=== PATIENT | male | born 1950 | race Caucasian/White ===

== ENCOUNTER → 2018-11-25 | Outpatient (CLI) | payer MEDICARE, OTHER ==
--- NOTE | 2018-11-25 11:10 | Diagnostic Imaging Report ---
INDICATION: Persistent cough. COMPARISON: None available. TECHNIQUE: Frontal and lateral radiographs of the chest dated November 25, 2018. FINDINGS: The cardiac silhouette is at the upper limits of normal in size. No significant pulmonary vascular congestion. The left lung is clear. Small right basilar pleural effusion. 1 cm ovoid nodular density is identified overlying the right lung apex. Otherwise, the right lung is clear. No pneumothorax. Scattered osseous degenerative changes without acute osseous abnormality. IMPRESSION: Small right basilar pleural effusion. 1 cm ovoid nodular density overlying the right lung apex. Although this may simply relate to superposition of shadows, pulmonary nodule is not excluded. Comparison to prior imaging is recommended. If no prior imaging is available to demonstrate greater than two years of stability for this nodular density, then a nonemergent CT of the chest would be recommended. Cardiac silhouette is at the upper limits of normal in size without significant pulmonary vascular congestion. Dictated by: Dictated on workstation # [id number]
== END ==
LOC: RAD FS 10:52
PROVIDERS: ATTEND Nurse Practitioner
DX: J90 Pleural effusion, not elsewhere classified (principal); J98.4 Other disorders of lung
CPT/HCPCS: 71046

== ENCOUNTER → 2019-01-26 | Outpatient (CLI) | payer MEDICARE, OTHER ==
--- NOTE | 2019-01-26 10:28 | Diagnostic Imaging Report ---
EXAM: PA and lateral chest at 10:16 a.m. INDICATION: Respiratory distress, shortness of breath. The appearance of the chest has worsened since the prior study of 11/25/2018 as the right lung base is now opacified by atelectasis/infiltrate and fluid. The nodular density overlying the right upper lobe seen previously is again evident and no different. The left lung is relatively clear. The heart is mildly enlarged but stable. The mediastinum is not widened. The osseous structures are intact. IMPRESSION: 1. The appearance of the chest has worsened since the prior study as the right lung base is now opacified by atelectasis/infiltrate and fluid. 2. In reviewing the previous exam, there was no evidence for a right hilar mass to suggest neoplastic disease. However, if further evaluation of the right hilum is desired, then CT of the chest would be recommended. The nodular density overlying the right apex seen previously could also be better evaluated by CT. Dictated by: Dictated on workstation # [id number]
== END ==
LOC: RAD FS 10:12
PROVIDERS: ATTEND Family Medicine
DX: R06.03 Acute respiratory distress (principal); R06.02 Shortness of breath
CPT/HCPCS: 71046

== ENCOUNTER → 2019-02-14 | Outpatient (CLI) | payer MEDICARE, OTHER ==
[~2019-02-14] MED LIST: CATHETER FLUSH 10 ML SYR IV PRN; ERGO50006 PO; ESCI20TA45 PO; ESZO3TAB39 PO; HOLD METFORMIN - RECEIVED CONTRAST 20 ML VIAL IV SCH; IOHEXOL 350 MG/ML 100 ML (OMNIPAQUE 350) VIAL IV ONE; LEVO25TA5 PO; MULT-974 PO; NS 100 ML (IVPB) BAG IV ONE; PANT40TA3 PO; TAMS0.4C98 PO
[2019-02-14 09:20] LABS: BUN/CREATININE RATIO 13; CREATININE SERUM 1.11 MG/DL (0.60-1.30); GFR ESTIMATED > 60
--- NOTE | 2019-02-14 15:58 | Diagnostic Imaging Report ---
PROCEDURE: CT chest with contrast only. TECHNIQUE: Multiple contiguous axial images were obtained through the chest after administration of intravenous contrast. Auto Exposure Controls were utilized during the CT exam to meet ALARA standards for radiation dose reduction. INDICATION: Cough since late October/early November. Shortness of breath x 1 month. CORRELATION STUDY: Chest radiographs of 11/25/2018 and 01/26/2019. FINDINGS: There is the presence of a moderately large right pleural effusion occupying the dependent portion of the right hemithorax. There is rather significant consolidation in a large portion of the right lower lobe and portions of the middle lobe. A definitive central obstructive hilar mass is not demonstrated. There are, however, abnormal and concerning enlarged mediastinal lymph nodes. A marker right paratracheal lymph node measures 2.4 x 2.1 cm. An additional right pre-bronchial lymph node measures 2.6 x 2.0 cm and is hypervascular. There is an abnormal lobulated hypervascular mass in the anterior aspect of the right lung base inseparable from the chest wall measuring 5.9 x 4.2 cm, also hypervascular. A hypervascular mass adjacent to the low esophagus to the right of midline measures 3.5 x 2.6 cm. Additional lymph nodes are seen adjacent to the lower esophagus. A left hilar lymph node measures 2.7 x 2.0 cm. Small peripheral hypervascular peripheral nodules are also present. A questionable additional right infrahilar lymph node could result in some of the accounted for atelectatic change in the right lower lobe. There is incidental note made of a left sided superior vena cava emptying into the coronary sinus. There are scattered, innumerable small bilateral pulmonary nodules present. Marker nodules are as follow: Anterior lateral right upper lobe: 11 mm (image 35/series 3). Anterolateral aspect of the left upper lobe: 10 mm (image 55/series 3). Subpleural region in the medial left upper lobe: 8 mm (image 68/series 3). Basilar aspect of the left upper lobe: 10 mm (image 101/series 3). Medial left lower lobe: 14 mm (image 116/series 3). There is partial visualization of a left renal mass which is highly worrisome for primary renal neoplasm. The visualized portions measure 8.4 x 7.4 cm. The left renal vein and inferior vena cava appear unremarkable. There is a small adjacent aortocaval lymph node. There is a destructive hypervascular mass involving the right posterolateral corner and pedicle at T12. The soft tissue component measures 3.8 x 2.9 cm. Diffuse thin bridging osteophytes throughout the thoracic spine are compatible with ankylosing spondylitis. Low-density lesions within the liver favor probable cysts along with gallstones. IMPRESSION: 1. Markedly abnormal CT chest examination. 2. Findings are most consistent with a likely primary left renal cell carcinoma with extensive metastatic disease including hyperenhancing mediastinal and hilar lymph nodes along with a mass at the anterior base of the right hemithorax. There are also findings consistent with multiple bilateral metastatic pulmonary nodules along with destructive osseous metastasis at the right T12 level. 3. A moderately large right pleural effusion results in significant consolidation of the right lower lobe. Some peripheral nodular enhancement raises concern for a malignant pleural effusion. The report was given to Maria D Barrera APRN at 3:58 p.m. 02/14/2019/nan Dictated by: Dictated on workstation # [id number]
== END ==
LOC: RAD FS 08:31
PROVIDERS: ATTEND Nurse Practitioner Family
DX: J90 Pleural effusion, not elsewhere classified (principal); R91.8 Other nonspecific abnormal finding of lung field
CPT/HCPCS: 36415; 71260; 82565; 84520

== ENCOUNTER 2019-02-15 10:11 | Day surgery (SDC) | payer MEDICARE, OTHER ==
[2019-02-15] VITALS (14 sets, daily range): BP systolic 131–192; BP diastolic 60–92
[~2019-02-15] VITALS: Ht 180.3 cm; Wt 107.1 kg
--- NOTE | 2019-02-15 11:15 | Diagnostic Imaging Report ---
INDICATION: Pleural effusion TECHNIQUE: Multiple real time johnson scale sonographic images were obtained of the right chest. CORRELATION STUDY: None FINDINGS: Imaging performed of the right chest which demonstrates a large right pleural effusion to be present. Collapsed, atelectatic lung is present. A suitable window for thoracentesis was marked by the bird raiser at the posterior chest. No radiologist present. IMPRESSION: 1.Right pleural effusion, marked for follow-up thoracentesis. Dictated by: Dictated on workstation # [id number]
[2019-02-15] MEDS ORDERED: NS IV 500 ML 500 ML ONE (11:38)
--- NOTE | 2019-02-15 11:39 | Pulmonary Procedures ---
Pulmonary Procedures Date of Procedure Date of Service: Feb 15, 2019 Procedure: US guided complex thoracentesis Preop DX: Right pleural effusion post op DX: Same 2000cc of yellow fluid obtained) Complications: None After informed consent obtained US was used to localize pleural fluid. Pt has right pleural effusions. Skin was anesthetized at approximately the 10th ICS posterior axillary line. Thoracentesis needle was advanced through the 10th ICS posterior axillary line. Needle was removed and catheter left in place.2000cc of yellow fluid obtained using vacuum bottles. Catheter was then removed. Pt tolerated procedure well. No complications noted. ADAMS HARDIN DO Feb 15, 2019 11:39 POS
[2019-02-15] MEDS ORDERED: NS IV 500 ML 500 ML IV PRN ×2 (11:59→12:13)
[2019-02-15] MEDS ORDERED: MIDAZOLAM 5 MG/5 ML (VERSED) VIAL IV PRN (12:00)
[2019-02-15] MEDS ORDERED: LIDOCAINE JELLY 2% 6 ML SYRINGE MM PRN ×2 (12:00→12:15)
[2019-02-15] MEDS ORDERED: HURRICAINE EXT TUBE (BENZOCAINE) XX PRN ×2 (12:00→12:15)
[2019-02-15 12:10] LABS: BASOPHILS % (AUTO) 0 % (0-10); EOSINOPHILS # (AUTO) 0.1 10^3/uL (0.0-0.3); EOSINOPHILS % (AUTO) 1 % (0-10); HEMATOCRIT 40 % (40-54); HEMOGLOBIN 13.3 G/DL (13.3-17.7); LYMPHOCYTES # (AUTO) 1.3 X 10^3 (1.0-4.0); LYMPHOCYTES % (AUTO) 17 % (12-44); MEAN CORPUSCULAR HEMOGLOBIN 27 PG (25-34); MEAN CORPUSCULAR HGB CONC 34 G/DL (32-36); MEAN CORPUSCULAR VOLUME 80 FL (80-99); MONOCYTES # (AUTO) 0.6 X 10^3 (0.0-1.0); MONOCYTES % (AUTO) 8 % (0-12); NEUTROPHILS # (AUTO) 5.7 X 10^3 (1.8-7.8); NEUTROPHILS % (AUTO) 75 % (42-75); PLATELET COUNT 290 10^3/uL (130-400); RED CELL DISTRIBUTION WIDTH 13.7 % (10.0-14.5); WHITE BLOOD COUNT 7.6 10^3/uL (4.3-11.0)
[2019-02-15] MEDS ORDERED: fentaNYL INJECTION 100 MCG/2 ML AMP IVP ONE (12:15)
--- NOTE | 2019-02-15 12:15 | Diagnostic Imaging Report ---
INDICATION: Status post thoracentesis. Time of exam 11:57 AM Correlation is made with prior chest from 01/26/2019. There has been reduction in right-sided pleural effusion when compared with CT chest from 1 day earlier. No pneumothorax is identified. There is some residual infiltrate/atelectasis in the right base. IMPRESSION: No evidence of pneumothorax, status post thoracentesis. Dictated by: Dictated on workstation # [id number]
[2019-02-15 12:35] LABS: ALANINE AMINOTRANSFERASE 17 U/L (0-55); ALBUMIN 4.1 GM/DL (3.2-4.5); ALKALINE PHOSPHATASE 109 U/L (40-136); BILIRUBIN,TOTAL 0.4 MG/DL (0.1-1.0); BUN/CREATININE RATIO 13; CALCIUM 10.1 MG/DL (8.5-10.1); CARBON DIOXIDE 27 MMOL/L (21-32); CHLORIDE 105 MMOL/L (98-107); GFR ESTIMATED > 60; GLUCOSE 98 MG/DL (70-105); POTASSIUM 4.4 MMOL/L (3.6-5.0); SODIUM 138 MMOL/L (135-145); TOTAL PROTEIN 7.1 GM/DL (6.4-8.2)
[2019-02-15 12:36] LABS: AMYLASE,BODY FLUID 34 U/L; GLUCOSE,BODY FLUID 105 MG/DL; LDH,BODY FLUID 103 U/L
--- NOTE | 2019-02-15 12:40 | CONSULTATION REPORT ---
DATE OF SERVICE: 02/15/2019 ATTENDING PHYSICIAN: Dr. Nolan. HISTORY OF PRESENT ILLNESS: The patient is a 68-year-old male who is being currently worked up for newly diagnosed lesions of the right lung, mediastinum distal esophagus as well as the left kidney. He reports that he has had some fatigue as well as cough and shortness of breath and was found to have a pleural effusion. He underwent a thoracentesis today. The CT scan also did show a thickening of the distal esophagus. He reports that he has had some history of reflux in the past; however, never severe. He does not take any medications for acid reflux or indigestion. He does not report any hematemesis, no coffee ground emesis. He states for the most part his bowel movements have been normal. No red blood per rectum nor any dark tarry stools. He also does not report any recent inadvertent weight loss. PAST MEDICAL HISTORY: Hypertension, depression. PAST SURGICAL HISTORY: None. ALLERGIES: No known drug allergies. MEDICATIONS: Escitalopram, Lunesta. SOCIAL HISTORY: Negative smoke, negative alcohol. FAMILY HISTORY: Noncontributory. VITAL SIGNS: Stable, afebrile. Systolic blood pressure in the 180s. REVIEW OF SYSTEMS: Well-nourished male, currently in no acute distress. He is currently undergoing a thoracentesis and is having the cough reflex associated to this. There is no sputum production. No nausea, vomiting, no reflux or regurgitation. No red blood per rectum, no dark tarry stools. No fever, chills and no recent inadvertent weight loss. All other review of systems negative. PHYSICAL EXAMINATION: CHEST: Decreased breath sounds bilaterally. HEART: Regular, no murmurs. EXTREMITIES: No lower extremity edema, negative Homans sign. HEENT: No scleral icterus. NECK: No cervical lymphadenopathy. ABDOMEN: Soft, nontender, nondistended. No palpable masses. SKIN: Warm, dry. ASSESSMENT AND PLAN: A 68-year-old male with lesions identified of the left kidney, right chest, esophagus and the mediastinum. He just underwent a thoracentesis; however, he will need further workup including laboratory work. However, we were consulted to proceed with an EGD as well as biopsies as appropriate due to the CT scan findings, which we will proceed with. Job ID: [id number] DocumentID: [id number] Dictated Date: 02/15/2019 12:04:57 Booking Officer Date: 02/15/2019 12:39:41 Dictated By: NICK ADRIAN MD
--- NOTE | 2019-02-15 12:53 | Conscious Sedation/ASA ---
Conscious Sedation Pre-Proced Time 11:00 ASA Score 3 For ASA 3 and 4: Consider anesthesia and medical clearance. Also, for patients with a history of failed moderate sedation consider anesthesia. Airway Lungs Heart ASA score ASA 1: a normal healthy patient ASA 2: a patient with a mild systemic disease (mid diabetes, controlled hypertension, obesity ASA 3: a patient with a severe systemic disease that limits activity (angina, COPD, prior Myocardial infarction) ASA 4: a patient with an incapacitating disease that is a constant threat to life (CHF, renal failure) ASA 5: a moribund patient not expected to survive 24 hrs. (ruptured aneurysm) ASA 6: a declared brain- patient whose organs are being harvested. For emergent operations, add the letter E after the classification Mallampati Classification Grade 2 Sedation Plan Analgesia, Amnesia, Plan communicated to team members, Discussed options with patient/fam, Discussed risks with patient/fam The patient is an appropriate candidate to undergo the planned procedure, sedation, and anesthesia. The patient immediately re-assessed prior to indication. NICK ADRIAN MD Feb 15, 2019 12:53 POS
--- NOTE | 2019-02-15 12:54 | Progress Note-Pre Operative ---
Pre-Operative Progress Note H&P Reviewed The H&P was reviewed, patient examined and no changes noted. Date Seen by Provider: Feb 15, 2019 Time Seen by Provider: 11:00 Date H&P Reviewed: Feb 15, 2019 Time H&P Reviewed: 11:00 Pre-Operative Diagnosis: esophageal lesion. NICK ADRIAN MD Feb 15, 2019 12:54 POS
[2019-02-15 13:01] LABS: BF OTHER CELLS 58 %; LYMPHOCYTES,BODY FLUID 40 %
[2019-02-15 13:07] LABS: BODY FLUID APPEARENCE CLEAR; BODY FLUID COLOR PALE YELLOW; BODY FLUID SOURCE PLEURAL
[2019-02-15 13:39] LABS: BODY FLUID RBC COUNT 63 /uL; BODY FLUID WBC TOTAL COUNT 343 /uL
[2019-02-15] MEDS ORDERED: fentaNYL INJECTION 100 MCG/2 ML AMP ONE (13:45)
[2019-02-15] MEDS ORDERED: MIDAZOLAM 5 MG/5 ML (VERSED) VIAL ONE (13:45)
[2019-02-15] MEDS ORDERED: HURRICAINE EXT TUBE (BENZOCAINE) ONE (13:46)
[2019-02-15] MEDS ORDERED: LIDOCAINE JELLY 2% 6 ML SYRINGE ONE (13:46)
[2019-02-15 13:49] LABS: BODY FLUID PH 7.3
[2019-02-15] MEDS: fentaNYL INJECTION 100 MCG/2 ML AMP IVP ONE (14:30)
[2019-02-15] MEDS: MIDAZOLAM 5 MG/5 ML (VERSED) VIAL IV PRN ×2 (14:50→15:00)
--- NOTE | 2019-02-16 00:29 | OPERATIVE REPORT ---
DATE OF SERVICE: 02/15/2019 PREOPERATIVE DIAGNOSIS: Recently diagnosed mass in the left kidney, mediastinum as well as the esophagus. This is suspicious for some form of neoplasm. He also developed a pleural effusion. Esophageal mass identified on CT scan. Mild to moderate reflux. POSTOPERATIVE DIAGNOSES: Reflux esophagitis stage II, moderate size hiatal hernia 2.5 to 3 cm in size. No polyps nor any neoplasms. Mild gastritis. Pylorus and duodenum appeared normal with no distal obstructions. PROCEDURE: EGD with biopsy. SURGEON: Nick Adrian MD. ANESTHESIA: Conscious sedation. ESTIMATED BLOOD LOSS: Minimal. FINDINGS: Reflux esophagitis stage II, moderate size hiatal hernia 2.5 to 3 cm in size. No polyps nor any neoplasms. Mild gastritis. Pylorus and duodenum appeared normal with no distal obstructions. DISPOSITION: The patient tolerated the procedure well. INDICATIONS: The patient is a 68-year-old male who recently developed shortness of breath and was found to have a pleural effusion; however, further evaluation also did show a left renal mass, mediastinal adenopathy as well as a mass in the right lung and a mass at the gastroesophageal junction on CT scan. Upon further questioning, he reports that he has had some worsening reflux in the past several months. He does not report any hematemesis or coffee ground emesis. DESCRIPTION OF PROCEDURE: The patient was brought to the endoscopy suite, laid in the left lateral decubitus position with head slightly elevated. After adequate IV pain and sedative medications and conscious sedation anesthesia, the mouthpiece was applied. The endoscope was placed in the mouth, visualizing the pharynx and hypopharyngeal region. Vocal cords, epiglottis and vallecula identified and appeared to be normal. Endoscope was then gently intubated into the esophageal opening and esophagus insufflated. The endoscope was then advanced through the first, second and third portion of esophagus at the level of the GE junction, a reflux esophagitis stage II identified. There were no ulcers or strictures identified in this region. The endoscope was then advanced in the stomach and endoscope retroflexed, visualizing a small to moderate size hiatal hernia approximately 2.5 to 3 cm in size. This was most likely the lesion detected on the CT scan. There were no exophytic masses, polyps nor any neoplastic processes identified. A moderate gastritis was noted. There were no formal ulcerations, polyps, or any neoplasms. A biopsy was taken of the antrum to rule out H. pylori. The endoscope was then advanced to the pylorus and the first and second portion of the duodenum, which appeared normal with no distal obstructions. A biopsy was taken of the antrum to rule out H. pylori with visualization of good hemostasis. The endoscope was then slowly withdrawn while taking a second look and suctioning of residual air with no additional findings. The patient tolerated the procedure well. The mass identified on CT scan near the esophagus is a hiatal hernia. We will await the biopsy results; however, treat him empirically for his worsening reflux and the hiatal hernia with Protonix 40 mg daily as well as the necessary lifestyle and dietary accommodation including small and more frequent meals, avoidance of eating at night as well as head elevation while lying supine. He also needs to avoid caffeinated beverages, spicy, greasy and acidic foods. Job ID: [id number] DocumentID: [id number] Dictated Date: 02/15/2019 15:08:33 Student Success Coach Date: 02/16/2019 00:29:09 Dictated By: NICK ADRIAN MD MTDD
== END 2019-02-15 15:47 | disposition home or self-care (01) ==
LOC: SDC 10:11 → RAD 10:11 → EDSTATUS 10:30 → SDC 15:47
PROVIDERS: ATTEND Internal Medicine Critical Care Medicine
DX: K21.0 Gastro-esophageal reflux disease with esophagitis (principal); J90 Pleural effusion, not elsewhere classified; K29.50 Unspecified chronic gastritis without bleeding; K44.9 Diaphragmatic hernia without obstruction or gangrene; I10 Essential (primary) hypertension; F32.9 Major depressive disorder, single episode, unspecified; Z79.899 Other long term (current) drug therapy
CPT/HCPCS: 32554; 36415; 71045; 76942; 80053; 82150; 82945; 83615; 83880; 83986; 84157; 85025; 87070; 87075; 87101; 87205; 88112; 88184; 88185; 88305; 89051

== ENCOUNTER → 2019-02-22 | Outpatient (CLI) | payer MEDICARE, OTHER ==
[~2019-02-22] MED LIST changes: -CATHETER FLUSH 10 ML SYR IV PRN; -ERGO50006 PO; -ESCI20TA45 PO; -ESZO3TAB39 PO; -HOLD METFORMIN - RECEIVED CONTRAST 20 ML VIAL IV SCH; -IOHEXOL 350 MG/ML 100 ML (OMNIPAQUE 350) VIAL IV ONE; -LEVO25TA5 PO; -MULT-974 PO; -NS 100 ML (IVPB) BAG IV ONE; -PANT40TA3 PO; +RT-ALBUTEROL SULF 2.5 MG/3 ML PRE-MIX VIAL INH ONE; -TAMS0.4C98 PO
== END ==
LOC: RT 11:16
PROVIDERS: ATTEND Nurse Practitioner Family
DX: J30.9 Allergic rhinitis, unspecified (principal); R13.10 Dysphagia, unspecified; R91.8 Other nonspecific abnormal finding of lung field
CPT/HCPCS: 94060; 94726; 94729

== ENCOUNTER → 2019-03-14 | Outpatient (CLI) | payer MEDICARE, OTHER ==
[~2019-03-14] MED LIST changes: +ERGO50006 PO; +ESCI20TA45 PO; +ESZO3TAB39 PO; +LEVO25TA5 PO; +MULT-974 PO; +PANT40TA3 PO; -RT-ALBUTEROL SULF 2.5 MG/3 ML PRE-MIX VIAL INH ONE; +TAMS0.4C98 PO
--- NOTE | 2019-03-14 13:15 | Diagnostic Imaging Report ---
INDICATION: Pleural effusion and renal mass. TECHNIQUE: Serum blood glucose level at the time of injection is 94 mg/dL. Patient was administered 13.9 mCi F-18 FDG intravenously in the right antecubital location and PET imaging was performed from the top of the skull to mid thighs. Noncontrast CT was also performed for attenuation correction and anatomic correlation. COMPARISON: No prior PET studies are available for comparison. Comparison is made with prior CT of the chest from 02/14/2019. FINDINGS: There is symmetric activity throughout the brain. Soft tissues of the neck are unremarkable. There is hypermetabolism and enlarged right paratracheal lymph nodes which demonstrate an SUV max of approximately 5.8. Lower level activity in the left hilar mass is seen with SUV max of approximately 3.4. There is a destructive lesion involving the right lateral third rib which shows hypermetabolism. SUV max is 5.5. The mass in the anterior right base also demonstrates uptake with SUV max of approximately 4.4. There is abnormal uptake involving the destructive lesion in the right aspect of T12 with SUV max of approximately 4.3. Large right-sided effusion with associated parenchymal consolidation is seen. Abdomen demonstrates physiologic activity in the gastrointestinal and genitourinary tracts. There is some uptake within the periphery of the solid left renal mass with SUV max of approximately 4.8. No hypermetabolic abdominal lymphadenopathy is seen. IMPRESSION: Solid left renal mass most consistent with renal cell carcinoma. There are hypermetabolic lymph nodes in the right paratracheal and left hilar region suggestive of metastases. There is also a mass in the anterior right lung base which is likely metastatic. Destructive osseous lesions involving the right third rib and T12 vertebral body is noted consistent with metastatic lesions. Dictated by: Dictated on workstation # [id number]
== END ==
LOC: RAD 10:17
PROVIDERS: ATTEND Nurse Practitioner Family
DX: J90 Pleural effusion, not elsewhere classified (principal); N28.89 Other specified disorders of kidney and ureter; N89.9 Noninflammatory disorder of vagina, unspecified

== ENCOUNTER → 2019-03-22 | Outpatient (CLI) | payer MEDICARE, OTHER ==
--- NOTE | 2019-03-22 16:46 | Diagnostic Imaging Report ---
CHEST PA/LAT (TWO VIEWS) INDICATION: Pleural effusion. Renal cancer. COMPARISON: 03/17/2019. FINDINGS: Persistent large right pleural effusion appears redistributed in the lower aspect of the right hemithorax. No left pleural effusion. No pneumothorax. Right basilar consolidations favor relaxation atelectasis. IMPRESSION: Persistent large right pleural effusion. Dictated by: Dictated on workstation # [id number]
== END ==
LOC: RAD 15:59
PROVIDERS: ATTEND Nurse Practitioner Family
DX: C64.9 Malignant neoplasm of unspecified kidney, except renal pelvis (principal); J91.8 Pleural effusion in other conditions classified elsewhere
CPT/HCPCS: 71046

== ENCOUNTER 2019-04-03 07:18 | Outpatient (CLI) | payer MEDICARE, OTHER ==
[~2019-04-03] VITALS: Ht 182.9 cm; Wt 104.0 kg
[2019-04-03] VITALS (13 sets, daily range): BP systolic 113–147; BP diastolic 55–82
[~2019-04-03 07:18] MED LIST changes: -TAMS0.4C98 PO; +TMSL.4C PO
[2019-04-03] MEDS ORDERED: NS IV 1000 ML 1,000 ML IV STA (08:01)
[2019-04-03 08:10] LABS: HEMOGLOBIN 12.2 G/DL (13.3-17.7); MEAN PLATELET VOLUME 11.1 FL (7.4-10.4); RED CELL DISTRIBUTION WIDTH 14.3 % (10.0-14.5); WHITE BLOOD COUNT 5.2 10^3/uL (4.3-11.0)
[2019-04-03 08:14] LABS: PROTHROMBIN TIME PATIENT 13.6 SEC (12.2-14.7)
[2019-04-03] MEDS ORDERED: fentaNYL INJECTION 100 MCG/2 ML AMP IVP ONE (08:15)
[2019-04-03] MEDS ORDERED: MIDAZOLAM 2 MG/2 ML (VERSED) VIAL IVP ONE (08:15)
[2019-04-03] MEDS ORDERED: LIDOCAINE 1% INJ 20 ML 20 ML VIAL INJ ONE (08:15)
[2019-04-03] MEDS ORDERED: HYDROcodone/APAP 5 MG/325 MG (LORTAB) TAB PO PRN (10:00)
--- NOTE | 2019-04-03 10:04 | Pre-Op Note & Conscious Sedat ---
Pre-Operative Progress Note H&P Reviewed The H&P was reviewed, patient examined and no changes noted. Date H&P Reviewed: Apr 03, 2019 Time H&P Reviewed: 09:00 Pre-Op Diagnosis: Lung mass Conscious Sedation Pre-Proced Time 09:00 ASA Score 2 For ASA 3 and 4: Consider anesthesia and medical clearance. Also, for patients with a history of failed moderate sedation consider anesthesia. Airway Lungs Heart ASA score ASA 1: a normal healthy patient ASA 2: a patient with a mild systemic disease (mid diabetes, controlled hypertension, obesity ASA 3: a patient with a severe systemic disease that limits activity (angina, COPD, prior Myocardial infarction) ASA 4: a patient with an incapacitating disease that is a constant threat to life (CHF, renal failure) ASA 5: a moribund patient not expected to survive 24 hrs. (ruptured aneurysm) ASA 6: a declared brain- patient whose organs are being harvested. For emergent operations, add the letter E after the classification Mallampati Classification Grade 2 Sedation Plan Analgesia, Amnesia, Plan communicated to team members, Discussed options with patient/fam, Discussed risks with patient/fam The patient is an appropriate candidate to undergo the planned procedure, sedation, and anesthesia. The patient immediately re-assessed prior to indication. LUCIAN HERRERA MD Apr 03, 2019 10:04
--- NOTE | 2019-04-03 10:10 | Diagnostic Imaging Report ---
INDICATION: Right lung mass. Patient presents for CT guided biopsy. TECHNIQUE: All CT scans use one or more of the following dose optimizing techniques: automated exposure control, MA and/or KvP adjustment based on a patient size and exam type, or iterative reconstruction. The patient was brought to the CT suite, placed on table in the supine position. Axial imaging through the chest was performed to evaluate appropriate entry site. The lower right anterior chest was then prepped and draped in usual sterile fashion. The procedure was performed utilizing conscious sedation with radiology nursing and constipation monitoring. Patient was administered a total of 50 mcg of fentanyl intravenously and 1 mg of Versed intravenously. Total procedure time 6 minutes. A 20-gauge coaxial Temno needle was advanced and placed with its tip into the mass in the anterior right lung base. A total of 3 core biopsies were obtained. The needle was removed during the injection of a small blood patch. Follow-up imaging shows no complicating features. IMPRESSION: CT-guided right lung core biopsy utilizing conscious sedation. Pathology results are currently pending. Dictated by: Dictated on workstation # [id number]
--- NOTE | 2019-04-03 12:14 | Diagnostic Imaging Report ---
INDICATION: Right lung biopsy. TIME OF EXAM: 11:25 AM FINDINGS: No pneumothorax is identified status post right lung biopsy. There is a moderate-sized right pleural effusion with some associated right basilar consolidation. Left lung is fairly clear. IMPRESSION: No evidence of pneumothorax, status post right lung biopsy. Dictated by: Dictated on workstation # [id number]
== END 2019-04-03 12:15 | disposition home or self-care (01) ==
LOC: SDC 07:18
PROVIDERS: ATTEND Internal Medicine Critical Care Medicine
DX: C64.2 Malignant neoplasm of left kidney, except renal pelvis (principal); R91.8 Other nonspecific abnormal finding of lung field
CPT/HCPCS: 36415; 71045; 77012; 85027; 85610; 85730; 88305; 88342; 88344; 99156

== ENCOUNTER 2019-04-10 14:44 | Inpatient (IN) | payer MEDICARE, OTHER ==
[~2019-04-10] VITALS: Ht 182.9 cm; Wt 102.1 kg
[~2019-04-10 14:44] MED LIST changes: -IBUP-30 PO; -LEVO50TA6 PO; -MULT-347 PO
[2019-04-10 15:23] VITALS: BP 163/74
--- NOTE | 2019-04-10 15:23 | NUR ---
MARTHA COPELAND admitted to room 410-1, with an admitting diagnosis of Right pleural effusion, on 04/10/[address] Nolan office via wheelchair, accompanied by staff. MARTHA COPELAND introduced to surroundings, call light, bed controls, phone, TV, temperature control, lights, meal times, smoking policy, visitor policy, side rail policy, bathrooms and showers. Patient Rights given to patient in the handbook. MARTHA COPELAND verbalizes understanding that [facility] is not responsible for the loss or damage to any personal effects or valuables that are kept in the patients possession during their hospitalization. The following Patient Care Plans were discussed with the patient: Discharge Planning, pain management, dehydration, and medications. MARTHA COPELAND verbalizes understanding of Interdisciplinary Patient Education. Patient and/or family were informed about the Rapid Response Team and its purpose.
[2019-04-10] MEDS ORDERED: CATHETER FLUSH 10 ML SYR IV PRN (16:00)
[2019-04-10] MEDS ORDERED: RT-ALBUTEROL/IPRATROPIUM 3 ML (DUONEB) VIAL IH PRN (16:00)
[2019-04-10] MEDS ORDERED: LORazepam INJ 2 MG/ML (ATIVAN) VIAL IV PRN (16:00)
[2019-04-10] MEDS ORDERED: ONDANSETRON 4 MG/2 ML (SDV) Z0FRAN IV PRN (16:00)
[2019-04-10 16:03] LABS: BASOPHILS % (AUTO) 0 % (0-10); EOSINOPHILS # (AUTO) 0.1 10^3/uL (0.0-0.3); EOSINOPHILS % (AUTO) 1 % (0-10); HEMATOCRIT 36 % (40-54); HEMOGLOBIN 11.9 G/DL (13.3-17.7); LYMPHOCYTES # (AUTO) 1.1 X 10^3 (1.0-4.0); LYMPHOCYTES % (AUTO) 20 % (12-44); MEAN CORPUSCULAR HEMOGLOBIN 27 PG (25-34); MEAN CORPUSCULAR HGB CONC 33 G/DL (32-36); MEAN CORPUSCULAR VOLUME 80 FL (80-99); MEAN PLATELET VOLUME 10.1 FL (7.4-10.4); MONOCYTES # (AUTO) 0.6 X 10^3 (0.0-1.0); MONOCYTES % (AUTO) 10 % (0-12); NEUTROPHILS # (AUTO) 3.9 X 10^3 (1.8-7.8); NEUTROPHILS % (AUTO) 68 % (42-75); PLATELET COUNT 279 10^3/uL (130-400); RED CELL DISTRIBUTION WIDTH 14.2 % (10.0-14.5); WHITE BLOOD COUNT 5.7 10^3/uL (4.3-11.0)
[2019-04-10 16:09] VITALS: BP 163/74
[2019-04-10] MEDS ORDERED: TMSL.4C PO (16:21)
[2019-04-10] MEDS ORDERED: ERGO50006 PO (16:21)
[2019-04-10 16:22] LABS: ALANINE AMINOTRANSFERASE 20 U/L (0-55); ALBUMIN 3.7 GM/DL (3.2-4.5); ALKALINE PHOSPHATASE 99 U/L (40-136); BILIRUBIN,TOTAL 0.4 MG/DL (0.1-1.0); BUN/CREATININE RATIO 12; CALCIUM 9.4 MG/DL (8.5-10.1); CARBON DIOXIDE 24 MMOL/L (21-32); CHLORIDE 108 MMOL/L (98-107); CREATININE SERUM 0.95 MG/DL (0.60-1.30); GFR ESTIMATED > 60; GLUCOSE 93 MG/DL (70-105); MAGNESIUM 1.9 MG/DL (1.6-2.4); PHOSPHORUS 3.2 MG/DL (2.3-4.7); POTASSIUM 4.3 MMOL/L (3.6-5.0); SODIUM 138 MMOL/L (135-145); TOTAL PROTEIN 6.5 GM/DL (6.4-8.2)
[2019-04-10] MEDS ORDERED: IBUP-30 PO (16:24)
[2019-04-10] MEDS ORDERED: MULT-347 PO (16:24)
[2019-04-10] MEDS ORDERED: LEVO50TA6 PO (16:24)
--- NOTE | 2019-04-10 16:26 | NUR ---
SPOKE WITH THE PATIENT ABOUT HIS MEDICATIONS. HE HAD A LIST FROM HIS DR. OFFICE. I COMPARED THE LIST WITH THE EXT MED HX AND HE VERIFIED EACH. HIS LEVOTHYROXINE WAS FILLED #30 50MCG FOR 30 DAYS 04-02-19 - HE STATES HE TAKES 1/2 TAB DAILY. OTC MEDS: MTV IBU 3 TID PRN
--- NOTE | 2019-04-10 16:32 | CONSULTATION REPORT ---
DATE OF SERVICE: 04/10/2019 PRIMARY CARE PHYSICIAN: Dr. Chun. ADMITTING PHYSICIAN: Dr. Nolan. HISTORY OF PRESENT ILLNESS: The patient is a 68-year-old male who was seen by his sole stapler welt today with worsening shortness of breath. He has a history of shortness of breath as well as dyspnea upon exertion. He was found to have a large right pleural effusion. He underwent multiple thoracenteses; however, has had reoccurrence of the pleural effusion. Workup by pulmonology and radiology have been negative for any malignancy. Again, he continues to have symptomatic shortness of breath as well as dyspnea with this recurrent significant right-sided pleural effusion. We were consulted for placement of a tunneled PleurX catheter for self-drainage at home. PAST MEDICAL HISTORY: Recurrent right pleural effusion, hypercholesterolemia, anxiety, chronic fatigue syndrome, bipolar disorder, hypertension. PAST SURGICAL HISTORY: Appendectomy, cataract excision. ALLERGIES: No known drug allergies. MEDICATIONS: Lunesta 3 mg daily, ProAir q.i.d., escitalopram 20 mg daily, levothyroxine 60 mcg daily, sildenafil 100 mg p.r.n., tamsulosin 0.4 mg daily. SOCIAL HISTORY: Negative smoke, negative alcohol. FAMILY HISTORY: Noncontributory. VITAL SIGNS: Temperature 36.8, blood pressure 163/74, pulse 79, respirations 20, pulse ox 96% on 2 liters nasal cannula. REVIEW OF SYSTEMS: Well-nourished male currently in no acute distress. He is experiencing shortness of breath as well as dyspnea upon exertion. He does have mild cough; however, nonproductive. No nausea, vomiting, no diarrhea or constipation. No fever, chills, no recent inadvertent weight loss. All other review of systems negative. PHYSICAL EXAMINATION: CHEST: Decreased breath sounds at the right pleural space, left few scattered rales and rhonchi. HEART: Regular, no murmurs. EXTREMITIES: No lower extremity edema, negative Homans sign. HEENT: No scleral icterus. NECK: No cervical lymphadenopathy. ABDOMEN: Soft, nontender, nondistended. SKIN: Warm, dry. LABORATORY DATA: WBC 5.7, hemoglobin 11.9, hematocrit 36, platelets 279. ASSESSMENT AND PLAN: A 68-year-old male with symptomatic recurrent right pleural effusion. We will proceed with placement of a tunneled pleural catheter for a long-term pleural drainage at home once he becomes symptomatic. Job ID: [id number] DocumentID: [id number] Dictated Date: 04/10/2019 16:20:47 Actor Understudy Date: 04/10/2019 16:32:03 Dictated By: NICK ADRIAN MD
[2019-04-10] MEDS: PANTOPRAZOLE 40 MG (PROTONIX) VIAL IV SCH (17:23)
[2019-04-10] MEDS: RT-ALBUTEROL/IPRATROPIUM 3 ML (DUONEB) VIAL IH SCH (18:29)
--- NOTE | 2019-04-10 18:31 | Progress Note-Pre Operative ---
Pre-Operative Progress Note H&P Reviewed The H&P was reviewed, patient examined and no changes noted. Date Seen by Provider: Apr 10, 2019 Time Seen by Provider: 18:30 Date H&P Reviewed: Apr 10, 2019 Time H&P Reviewed: 18:30 Pre-Operative Diagnosis: hx clear cell renal ca with sx recurrent right pleural effusion. NICK ADRIAN MD Apr 10, 2019 18:31
[2019-04-10] MEDS: morphine INJ 4 MG/ML 1 ML (VIAL/SYRINGE) IV PRN (19:22)
[2019-04-10 19:35] VITALS: BP 129/60
[2019-04-10] MEDS: CATHETER FLUSH 10 ML SYR IV SCH (22:26)
[2019-04-11] VITALS (10 sets, daily range): BP systolic 105–145; BP diastolic 53–82
[2019-04-11] MEDS: morphine INJ 4 MG/ML 1 ML (VIAL/SYRINGE) IV PRN ×4 (00:35→23:20)
[2019-04-11] MEDS: CATHETER FLUSH 10 ML SYR IV SCH ×3 (05:31→19:24)
[2019-04-11] MEDS: RT-ALBUTEROL/IPRATROPIUM 3 ML (DUONEB) VIAL IH SCH ×4 (06:59→18:22)
[2019-04-11] MEDS: PANTOPRAZOLE 40 MG (PROTONIX) VIAL IV SCH (08:43)
[2019-04-11] MEDS ORDERED: PROPOFOL INJECTION 50 ML IV ONE (08:58)
--- NOTE | 2019-04-11 11:21 | History & Physical-Hospitalist ---
History of Present Illness HPI/Chief Complaint Patient is a 68-year-old male with recently diagnosed metastatic renal cell carcinoma who was admitted for recurrent pleural effusion. He reports he has had multiple pleural effusions that Dr. Nolan has drained, mostly recently on 03/24. Within a couple of days he noticed he was more short of breath and had difficulty ambulating due to this. He saw Dr. Nolan yesterday and chest x-ray revealed recurrent pleural effusion. Due to the increasing frequency of accumulation they opted to pursue a Pleurx catheter. Dr. ADRIAN has been consultative and plan is for placement today Date Seen 04/11/19 Time Seen by a Provider: 11:21 Attending Physician Elisa Garcia MD PCP Jaime Chun MD Referring Physician Date of Admission Apr 10, 2019 at 15:23 Home Medications & Allergies Home Medications Reviewed patient Home Medication Reconciliation performed by pharmacy medication reconciliations orthopedic technician and/or nursing. Patients Allergies have been reviewed. Allergies Allergies Coded Allergies No Known Drug Allergies (Unverified03/24/19) Past Bfwfrft-Yfyjso-Vcogzj Hx Past Med/Social Hx: Reviewed Nursing Past Med/Soc Hx Patient Social History Marrital Status: Alcohol Use: Rarely Uses Number of Drinks Today: 0 Recreational Drug Use: No Smoking Status: Never a Smoker 2nd Hand Smoke Exposure: No Physical Abuse Screen: No Sexual Abuse: No Recent Foreign Travel: No Contact w/other who traveled: No Recent Hopitalizations: No Recent Infectious Disease Expo: No Immunizations Up To Date Tetanus Booster (TDap): Unknown Seasonal Allergies Seasonal Allergies: No Past Medical History Currently Using CPAP: Yes (DOESN"T USE) Currently Using BIPAP: No Sexually Transmitted Disease: No HIV/AIDS: No Genitourinary: Prostate Problems Endocrine: Hyperthyroidism HEENT: Cataract Hearing Impairment: Hard of Hearing, Bilateral Hearing Aide Cancer: Bone, Lung, Skin, Lymphoma, Kidney Did You Recieve Any Treatments: No Cancer: SAW DR. GUNNAR [place] 1 Psychosocial: Depression History of Blood Disorders: No Family History Reviewed Nursing Family Hx Cardiovascular disease 19 FATHER FH: cancer 19 MOTHER Hypertension 19 FATHER Review of Systems Constitutional: no symptoms reported EENTM: no symptoms reported Respiratory: see HPI, dyspnea on exertion, short of breath Cardiovascular: no symptoms reported Gastrointestinal: no symptoms reported Genitourinary: no symptoms reported Musculoskeletal: no symptoms reported Skin: no symptoms reported Psychiatric/Neurological: No Symptoms Reported Physical Exam Physical Exam Vital Signs Vital Signs - First Documented 04/10/19 15:23 Temp 36.8 Pulse 79 Resp 20 B/P (MAP) 163/74 (103) Pulse Ox 96 O2 Delivery Nasal Cannula O2 Flow Rate 2.00 Capillary Refill : Less Than 3 SecondsLess Than 3 Seconds Height, Weight, BMI Height: '" Weight: lbs. oz. kg; 30.52 BMI Method: General Appearance: No Apparent Distress, WD/WN HEENT: Moist Mucous Membranes; No Scleral Icterus (L), No Scleral Icterus (R) Neck: Normal Inspection, Supple; No Thyromegaly Respiratory: No Accessory Muscle Use, No Respiratory Distress, Decreased Breath Sounds, Other (on oxygen) Cardiovascular: Regular Rate, Rhythm, No Murmur Gastrointestinal: Normal Bowel Sounds, Soft Extremity: No Calf Tenderness, No Pedal Edema Neurologic/Psychiatric: Alert, Oriented x3, Normal Mood/Affect Skin: Normal Color, Warm/Dry Results Results/Procedures Labs Laboratory Tests 04/10/19 15:55 Patient resulted labs reviewed. Imaging: Reviewed Imaging Report Imaging Date of Exam:04/10/19 CHEST PA/LAT (2 VIEW) INDICATION: Shortness of breath. TIME OF EXAM: 8:53 AM Correlation made with prior chest from 04/03/2019. There is a large right pleural effusion, similar to perhaps slightly larger when compared with one week earlier. No left-sided effusion is seen. There is no pneumothorax. IMPRESSION: Large right pleural effusion, similar to perhaps slightly increased when compared with one week earlier. Assessment/Plan Admission Diagnosis Pleural effusion- malignant Admission Status: Observation Assessment and Plan Pleural effusion- right malignant Plan for Pleurx catheter today Surgery consultation, appreciate assistance Pulmonology consultation, appreciate recommendations Metastatic renal cell carcinoma Bony mets Follows with Dr Allison Patient reports incurable but plan is for palliative chemotherapy T12 mets- denies pain at this time Diagnosis/Problems Diagnosis/Problems (1) Pleural effusion Status: Acute (2) Renal cell carcinoma Qualifiers: Laterality: unspecified laterality Qualified Codes: C64.9 - Malignant neoplasm of unspecified kidney, except renal pelvis (3) Metastatic renal cell carcinoma to bone Status: Chronic (4) Metastatic renal cell carcinoma to lung Status: Acute Qualifiers: Laterality: unspecified laterality Qualified Codes: C78.00 - Secondary malignant neoplasm of unspecified lung; C64.9 - Malignant neoplasm of unspecified kidney, except renal pelvis ELISA GARCIA MD Apr 11, 2019 11:21
[2019-04-11] MEDS ORDERED: LIDOCAINE/EPI 1%-1:100,000 (XYLOCAINE) 20ML ONE (11:47)
[2019-04-11] MEDS ORDERED: fentaNYL INJECTION 100 MCG/2 ML AMP ONE (12:57)
[2019-04-11] MEDS ORDERED: MIDAZOLAM 2 MG/2 ML (VERSED) VIAL ONE (13:09)
[2019-04-11] MEDS ORDERED: LACTATED RINGERS 1,000 ML IV PRN (13:30)
--- NOTE | 2019-04-11 13:55 | Pulmonary Consultation ---
History of Present Illness History of Present Illness Date of Admission Allergies and Home Medications Allergies Coded Allergies: No Known Drug Allergies (Unverified , 03/24/19) Home Medications Ergocalciferol (Vitamin D2) 1,250 Mcg Capsule, 1,250 MCG PO Sa, (Reported) Escitalopram Oxalate 20 Mg Tablet, 20 MG PO HS, (Reported) Eszopiclone 3 Mg Tablet, 3 MG PO HS, (Reported) Ibuprofen 200 Mg Tablet, 600 MG PO TID PRN for PAIN-MILD (1-4), (Reported) Levothyroxine Sodium 50 Mcg Tablet, 25 MCG PO DAILY, (Reported) TAKES 1/2 (50MCG) TABLET Multivitamins with Iron 1 Each Tablet, 1 TAB PO DAILY, (Reported) Pantoprazole Sodium 40 Mg Tablet.dr, 40 MG PO DAILY, (Reported) Tamsulosin HCl 0.4 Mg Cap, 0.4 MG PO DAILY, (Reported) Past Gjfrcvv-Ucknxz-Kapgnp Hx Patient Social History Alcohol Use: Rarely Uses Number of Drinks Today: 0 Recreational Drug Use: No Smoking Status: Never a Smoker 2nd Hand Smoke Exposure: No Recent Foreign Travel: No Contact w/Someone Who Travel: No Recent Infectious Disease Expo: No Recent Hopitalizations: No Immunizations Up To Date Tetanus Booster (TDap): Unknown Seasonal Allergies Seasonal Allergies: No Past Medical History Surgeries: Yes (CATARACT SURGERY) Respiratory: Yes (lung ca right (dx 1st week february 2009.)) Sleep Apnea Currently Using CPAP: Yes (DOESN"T USE) Currently Using BIPAP: No Cardiac: No Neurological: No Sexually Transmitted Disease: No HIV/AIDS: No Genitourinary: Yes Prostate Problems Gastrointestinal: No Musculoskeletal: No Endocrine: Yes Hyperthyroidism HEENT: Yes (HEARING AIDES KATTY) Cataract Hearing Impairment: Hard of Hearing, Bilateral Hearing Aide Cancer: Yes (RECENT DX) Bone, Lung, Skin, Lymphoma, Kidney Did You Recieve Any Treatments: No SAW DR. MAHER X 1 Psychosocial: Yes Depression Blood Disorders: No Family Medical History Cardiovascular disease 19 FATHER FH: cancer 19 MOTHER Hypertension 19 FATHER Sepsis Event Evaluation Height, Weight, BMI Height: '" Weight: lbs. oz. kg; 30.52 BMI Method: Exam Exam Vital Signs Date Time Temp Pulse Resp B/P (MAP) Pulse Ox O2 Delivery O2 Flow Rate FiO2 04/11/19 10:05 88 Room Air 04/11/19 08:57 37.7 82 18 134/68 (90) 93 Nasal Cannula 1.50 04/11/19 08:46 Nasal Cannula 2.00 04/11/19 07:00 91 04/11/19 06:59 90 Nasal Cannula 1.50 04/11/19 04:27 36.4 78 18 140/65 (90) 94 Nasal Cannula 2.00 04/11/19 01:05 37.3 04/11/19 01:00 98 04/11/19 00:13 37.3 83 16 139/66 (90) 95 Nasal Cannula 2.00 04/10/19 21:30 94 Nasal Cannula 2.00 04/10/19 19:35 36.6 85 15 129/60 (83) 94 Nasal Cannula 1.50 04/10/19 19:00 98 04/10/19 18:29 90 Nasal Cannula 2.00 04/10/19 17:26 93 Room Air 04/10/19 16:09 36.8 79 20 163/74 96 Nasal Cannula 2.00 04/10/19 15:23 36.8 79 20 163/74 (103) 96 Nasal Cannula 2.00 I & O 04/11/19 07:00 Intake Total 600 ml Output Total 300 ml Balance 300 ml Height & Weight Height: '" Weight: lbs. oz. kg; 30.52 BMI Method: General Appearance: No Apparent Distress, WD/WN HEENT: Moist Mucous Membranes; No Scleral Icterus (L), No Scleral Icterus (R) Neck: Normal Inspection, Supple; No Thyromegaly Respiratory: No Accessory Muscle Use, No Respiratory Distress, Decreased Breath Sounds, Other (on oxygen) Cardiovascular: Regular Rate, Rhythm, No Murmur Capillary Refill: Less Than 3 Seconds Extremity: No Calf Tenderness, No Pedal Edema Neurologic/Psychiatric: Alert, Oriented x3, Normal Mood/Affect Results Lab Laboratory Tests 04/10/19 15:55 Assessment/Plan Assessment/Plan Malignant recurrent right pleural effusion -s/p multiple thoracentesis -Dr. Adorno is planning pleurex catheter Metastatic renal cell carnioma/clear cell with mets to lungs and right 3rd rib and T 12 -Following with ADAMS Lee DO Apr 11, 2019 13:55
--- NOTE | 2019-04-11 14:07 | Progress Note-Post Operative ---
Post-Operative Progess Note Surgeon (s)/Pest Control Specialist (s) Surgeon NICK ADRIAN MD Pest Control Specialist: none Pre-Operative Diagnosis hx clear cell renal ca with sx recurrent right pleural effusion. Post-Operative Diagnosis same(3 liters evacuated) Procedure & Operative Findings Date of Procedure 04/11/19 Procedure Performed/Findings placement right tunneled pleural catheter. Anesthesia Type mac with local Estimated Blood Loss Estimated blood loss (mL): minimal Specimens/Packing Specimens Removed none NICK ADRIAN MD Apr 11, 2019 14:07
--- NOTE | 2019-04-11 14:09 | Discharge Inst-Surgical ---
D/C Lap Instructions-KAYLAH Follow Up PRN Activity as tolerated No driving for 24 hours No driving while on pain medications access and drain 1 liter weekly to start. Regular Diet Symptoms to Report: Fever over 101 degree F, Nausea/Vomiting Infection Signs and Symptoms to report: Increased redness, Foul odor of wound, Increased drainage Bathing instructions: May shower Operative Area Clean/Dry; Keep incision clean/dry If any problems/questions: Contact your physician or go to Emergency Room NICK ADRIAN MD Apr 11, 2019 14:08
[2019-04-11] MEDS ORDERED: fentaNYL INJECTION 100 MCG/2 ML AMP IVP ONE (14:30)
[2019-04-11] MEDS ORDERED: ONDANSETRON 4 MG/2 ML (SDV) Z0FRAN IVP PRN (14:30)
--- NOTE | 2019-04-11 14:35 | NUR ---
Pt transferred back to room 410 from PACU. This RN received report from SHIRA Leroy. Pt alert, oriented, and stable at this time.
--- NOTE | 2019-04-11 14:40 | Diagnostic Imaging Report ---
INDICATION: Post tunnel catheter placement. TECHNIQUE: Single view chest, 2:25 p.m. CORRELATION STUDY: 04/10/2019. FINDINGS: Since the prior study, small-caliber catheter tubing has been placed over the right hemithorax. The tip projects along the high lateral aspect of the chest, approximately the second and third rib level. There has been improvement in aeration to the right lung with decrease in size of the right pleural effusion. Likely a combination of effusion along with consolidation of the right lung base does persist. There does appear to be increasing infiltrate, edema, and/or atelectasis of the left mid and lower lung sam. Heart size and mediastinum remain enlarged and prominent. Vasculature overall has increased. IMPRESSION: 1. Some improvement in aeration of the right lung post catheter tube placement. Catheter tube positioned over the right lung apex. 2. Reduction in the right pleural effusion with a combination of effusion along with consolidation in the right lung base remaining. 3. Increasing density at the left mid and lower lung sam could be reflective of underlying infiltrate, atelectasis, and/or edema given increasing severity of vascular congestion. Dictated by: Dictated on workstation # [id number]
--- NOTE | 2019-04-11 19:45 | OPERATIVE REPORT ---
DATE OF SERVICE: 04/11/2019 ATTENDING PRIMARY CARE PHYSICIAN: Dr. Chun. ADMITTING PHYSICIAN: Dr. Noaln. PREOPERATIVE DIAGNOSIS: Symptomatic recurrent right malignant pleural effusion. POSTOPERATIVE DIAGNOSIS: Symptomatic recurrent right malignant pleural effusion. PROCEDURE: Placement of tunneled right pleural catheter. SURGEON: Nick Adorno MD ANESTHESIA: Monitored anesthesia care with local. ESTIMATED BLOOD LOSS: Minimal. FINDINGS: 3 liters of straw-yellow transudative fluid evacuated from the right pleural space. DISPOSITION: The patient tolerated the procedure well. INDICATIONS: The patient is a 68-year-old male who was seen by his hook tender yesterday with worsening shortness of breath and dyspnea upon exertion. He was found to have a recurrent large right pleural effusion. He underwent multiple thoracenteses; however, has had reoccurrence. He was eventually found to have a metastatic renal clear cell cancer. He was admitted and we were consulted for placement of a right tunneled pleural catheter for self-evacuation when symptomatic. DESCRIPTION OF PROCEDURE: The patient was brought to the operating room, laid supine on the table. After adequate IV pain and sedative medications and monitored anesthesia care, the chest was prepped and draped in standard surgical fashion. A 1% lidocaine with epinephrine was used to anesthetize the overlying skin at approximately 6th intercostal space and then moving inferiorly and anteriorly. Two skin incisions were then made using a 15 blade. The catheter was then tunneled through the subcutaneous tissue using the included tunneler. The intercostal muscles as well as the parietal pleura was then anesthetized with 1% lidocaine with epinephrine and the cannulating needle was then inserted withdrawing of straw-yellow transudative fluid. The guidewire was then inserted and then the dilator and sheath were then introduced over the guidewire. The guidewire and dilator were then removed and the catheter was then placed into the right pleural space and the sheath removed. Skin incisions were then closed using 3-0 Vicryl interrupted sutures. The catheter was placed to suction and 3 liters of straw-yellow transudative fluid was then evacuated. The catheter was then cleaned and covered with sterile gauze followed by a large Op-Site. The patient tolerated the procedure well. The patient may be discharged at any time. We initially started with evacuation of approximately 1 liter once a week to start with. Job ID: [id number] DocumentID: [id number] Dictated Date: 04/11/2019 14:14:19 Potline Monitor Date: 04/11/2019 19:44:37 Dictated By: NICK ADORNO MD MTDD
[2019-04-11] MEDS ORDERED: NON-FORMULARY MEDICATION 1 EA EA (Eszopiclone 3 MG) PO SCH (21:00)
[2019-04-11] MEDS ORDERED: ZOLPIDEM 5 MG (AMBIEN) TAB PO SCH (21:00)
[2019-04-11] MEDS ORDERED: NON-FORMULARY MEDICATION 1 EA EA (Escitalopram Oxalate 20 MG) PO SCH (21:00)
[2019-04-12] VITALS: BP 109/54
[2019-04-12 04:00] VITALS: BP 155/70
[2019-04-12] MEDS: CATHETER FLUSH 10 ML SYR IV SCH ×2 (06:23→11:59)
--- NOTE | 2019-04-12 07:21 | Pulmonary Progress Note ---
Subjective Time Seen by a Provider: 07:19 Subjective/Events-last exam Pt feels much better. Sepsis Event Evaluation Height, Weight, BMI Height: '" Weight: lbs. oz. kg; 30.52 BMI Method: Exam Exam Vital Signs Date Time Temp Pulse Resp B/P (MAP) Pulse Ox O2 Delivery O2 Flow Rate FiO2 04/12/19 04:00 37.0 73 20 155/70 (98) 97 Nasal Cannula 2.00 04/12/19 01:00 78 04/12/19 00:00 37.6 83 18 109/54 (72) 96 Nasal Cannula 2.00 04/11/19 23:20 37.2 04/11/19 21:00 98 Nasal Cannula 2.00 04/11/19 21:00 37.2 04/11/19 19:40 37.2 74 16 136/72 (93) 98 Nasal Cannula 2.00 04/11/19 19:23 37.0 04/11/19 19:00 94 04/11/19 18:22 94 Nasal Cannula 2.00 04/11/19 16:24 37.0 67 16 145/82 (103) 99 Nasal Cannula 2.00 04/11/19 14:38 69 04/11/19 14:36 37.7 67 18 112/64 (80) 96 Nasal Cannula 3.00 04/11/19 14:35 36.5 20 114/53 (73) 96 Nasal Cannula 3 04/11/19 14:35 Nasal Cannula 3 04/11/19 14:30 Nasal Cannula 3 04/11/19 14:20 20 114/53 (73) 96 Nasal Cannula 3 04/11/19 14:15 OxyMask 5 04/11/19 14:10 20 107/61 (76) 100 OxyMask 6 04/11/19 14:06 36.5 20 105/63 (77) 100 OxyMask 6 04/11/19 14:06 OxyMask 5 04/11/19 10:05 88 Room Air 04/11/19 08:57 37.7 82 18 134/68 (90) 93 Nasal Cannula 1.50 04/11/19 08:46 Nasal Cannula 2.00 I & O 04/12/19 07:00 Intake Total 1700 ml Balance 1700 ml Height & Weight Height: '" Weight: lbs. oz. kg; 30.52 BMI Method: General Appearance: No Apparent Distress, WD/WN HEENT: Moist Mucous Membranes; No Scleral Icterus (L), No Scleral Icterus (R) Neck: Normal Inspection, Supple; No Thyromegaly Respiratory: No Accessory Muscle Use, No Respiratory Distress, Decreased Breath Sounds, Other (on oxygen) Cardiovascular: Regular Rate, Rhythm, No Murmur Capillary Refill: Less Than 3 Seconds Extremity: No Calf Tenderness, No Pedal Edema Neurologic/Psychiatric: Alert, Oriented x3, Normal Mood/Affect Skin: Normal Color, Warm/Dry Results Lab Laboratory Tests 04/10/19 15:55 Assessment/Plan Assessment/Plan Malignant recurrent right pleural effusion -s/p multiple thoracentesis -S/p pleurex catheter -Catheter is positioned in right apex. I discussed with Dr. Adorno will see how pt does with effusion and catheter position. It may have to be removed and reinserted. -Repeat CXR Metastatic renal cell carnioma/clear cell with mets to lungs and right 3rd rib and T 12 -Following with Dr. Allison Pt is ok for discharge from my standpoint after he has received education on catheter. I will see him in office in 2wks. ADAMS HARDIN DO Apr 12, 2019 07:21
[2019-04-12 08:12] VITALS: BP 146/71
--- NOTE | 2019-04-12 08:26 | Diagnostic Imaging Report ---
INDICATION: Shortness of breath COMPARISON: 04/11/2019 TECHNIQUE: Single radiograph of the chest dated 04/12/2019. FINDINGS: The right-sided chest tube is stable. The cardiac silhouette is enlarged, though stable. Mild central pulmonary vascular congestion, slightly improved since the prior examination. Improved aeration of the lungs, particularly improved opacities within the left lung base. Extensive persisting opacities remain within the right lung base. No significant left pleural effusion. Small right pleural effusion is likely stable. No pneumothorax. No acute osseous abnormality. IMPRESSION: Improving aeration of the lungs with significantly improved though mild persisting left basilar opacities. Extensive right basilar opacities with associated trace right pleural effusion also remain, minimally improved. Stable right-sided chest tube without significant pneumothorax. Dictated by: Dictated on workstation # [id number]
[2019-04-12] MEDS: RT-ALBUTEROL/IPRATROPIUM 3 ML (DUONEB) VIAL IH SCH ×2 (08:29→11:36)
[2019-04-12] MEDS: PANTOPRAZOLE 40 MG (PROTONIX) VIAL IV SCH (09:18)
--- NOTE | 2019-04-12 10:12 | Discharge Summary ---
Diagnosis/Chief Complaint Date of Admission Apr 10, 2019 at 15:23 Date of Discharge Admission Diagnosis Pleural effusion- malignant Primary Care Jaime Chun MD Discharge Diagnosis (1) Pleural effusion Status: Acute (2) Renal cell carcinoma (3) Metastatic renal cell carcinoma to bone Status: Chronic (4) Metastatic renal cell carcinoma to lung Status: Acute Discharge Summary Discharge Physical Exam Allergies: Coded Allergies: No Known Drug Allergies (Unverified , 03/24/19) Vitals & I&Os Vital Signs Date Time Temp Pulse Resp B/P (MAP) Pulse Ox O2 Delivery O2 Flow Rate FiO2 04/12/19 08:12 37.3 85 16 146/71 (96) 95 Nasal Cannula 2.00 General Appearance: No Apparent Distress, WD/WN Cardiovascular: Regular Rate, Rhythm, No Murmur Neurologic/Psychiatric: Alert, Oriented x3 Hospital Course 68-year-old male with metastatic renal cell carcinoma who was admitted due to recurrent malignant pleural effusion with hypoxia. He underwent Pleurx catheter placement. This was uncomplicated. His symptoms resolved and he was discharged home in stable condition to follow up with his primary care doctor, Dr. Nolan, and Dr. Allison. Labs (last 24 hrs) Patient resulted labs reviewed. Imaging: Reviewed Imaging Report Discussion & Recommendations Discharge Planning: <30 minutes discharge planning Discharge Home Medications: Active Scripts Active Reported Advil (Ibuprofen) 200 Mg Tablet 600 Mg PO TID PRN Levothyroxine Sodium 50 Mcg Tablet 25 Mcg PO DAILY TAKES 1/2 (50MCG) TABLET Daily Vitamin + Iron (Multivitamins with Iron) 1 Each Tablet 1 Tab PO DAILY Vitamin D2 (Ergocalciferol (Vitamin D2)) 1,250 Mcg Capsule 1,250 Mcg PO SA Flomax (Tamsulosin HCl) 0.4 Mg Cap 0.4 Mg PO DAILY Pantoprazole Sodium 40 Mg Tablet.dr 40 Mg PO DAILY Escitalopram Oxalate 20 Mg Tablet 20 Mg PO HS Eszopiclone 3 Mg Tablet 3 Mg PO HS Instructions to patient/family Please see electronic discharge instructions given to patient. Problem Qualifiers (1) Renal cell carcinoma: Laterality: unspecified laterality Qualified Codes: C64.9 - Malignant neoplasm of unspecified kidney, except renal pelvis (2) Metastatic renal cell carcinoma to lung: Laterality: unspecified laterality Qualified Codes: C78.00 - Secondary malignant neoplasm of unspecified lung; C64.9 - Malignant neoplasm of unspecified kidney, except renal pelvis MARIAH WILKINS MD Apr 12, 2019 10:12
--- NOTE | 2019-04-12 10:14 | Anesthesia-General Post-Op ---
MAC Patient Condition Mental Status/LOC: Same as Preop Cardiovascular: Satisfactory Nausea/Vomiting: Absent Respiratory: Satisfactory Pain: Controlled Complications: Absent Post Op Complications Complications None Follow Up Care/Instructions Patient Instructions None needed. Anesthesiology Discharge Order Discharge Order Patient is doing well, no complaints, stable vital signs, no apparent adverse anesthesia problems. No complications reported per nursing. KP BARBOZA CRNA Apr 12, 2019 10:14
--- NOTE | 2019-04-12 10:59 | D/C HH Face to Face Order ---
D/C Face to Face Orders Reconcile Patient Problems Problems Reviewed?: Yes Instructions for Patient Via [facility], Patient Instructions/FollowUp: please continue to take her medications as written. Please follow-up with your physicians as scheduled. Physician to follow Patient: Dr Chun Discharge Diet for Home: No Restrictions Patient Data-Allergies,Ht & Wt Patient Allergies: Coded Allergies: No Known Drug Allergies (Unverified , 03/24/19) Home Health Need/Face to Face Date of Face to Face: Apr 12, 2019 Clinical Findings: Shortness of breath I have seen Pt [id number]: Yes Discharged To: Home Diagnosis/Conditions: metastatic renal cell carinoma, malignant pleural effusion Patient is Homebound due to: Shortness of breath/distress Homebound Status Due to the above stated illness, injury or surgical procedure (medical condition or diagnosis) and associated clinical findings, the patient is homebound because of his/her inability to leave home except with aid of a supportive device and/or person AND leaving the home requires a considerable and taxing effort or is medically contraindicated. Pt req the following assistanc: Aid of another person Home Health Nursing Orders Home Health Services Order: Nursing Services Pleur-X Catheter care and training for drainage Certify Stmt I certify that this patient is under my care and that I, a nurse practitioner or a physician; a junior sales assistant working with me, had a face to face encounter that - meets the physician face to face encounter requirements with this patient as dated. MARIAH WILKINS MD Apr 12, 2019 10:59
--- NOTE | 2019-04-12 11:16 | NUR ---
NO PLEURX EDUCATORS AVAILABLE IN HOUSE TODAY. SET UP WITH [facility] VIA SOCIAL SERVICE FOR PLEURX EDUCATION AT PTS HOME.
--- NOTE | 2019-04-12 11:42 | NUR ---
PT WALKED FOR 6MINS FOR HOME 02 QUALIFICATION; LOWEST SP02 NOTED WAS 91%. PT DOES NOT QUALIFY FOR 02 ATT. Addendum: 04/12/19 at 1144 by BROWN ORTEZ Amended: Links added.
--- NOTE | 2019-04-12 12:55 | NUR ---
RX AND INST AND VERBALIZED UNDERSTANDING. DC'D TO HOME WITH . INSTRUCTED TO CALL [employer] NUMBER IN PACKET WHEN ARRIVES HOME.
--- NOTE | 2019-04-12 13:33 | NUR ---
Pt lives with his in [place], [place]. 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 He and his have been together 32 years and have no children. is longtime employee at the [employer]. Arrangements complete for Home Health Care follow-up and chose [facility]. All medical records and Home Healtlh orders were faxed to [facility]. [facility] as pt has appt with Jaciel Allison in one week.
== END 2019-04-12 12:56 | disposition home health service (06) | DRG 181 ==
LOC: 4TH 15:23
PROVIDERS: ADMIT Internal Medicine Critical Care Medicine; ATTEND Family Medicine
PROC: 0W9930Z Drainage of Right Pleural Cavity with Drainage Device, Percutaneous Approach (ICD-10-PCS; principal; 2019-04-11 13:13)
DX: C78.01 Secondary malignant neoplasm of right lung (principal); J91.0 Malignant pleural effusion; C79.51 Secondary malignant neoplasm of bone; C65.9 Malignant neoplasm of unspecified renal pelvis; I10 Essential (primary) hypertension; E78.00 Pure hypercholesterolemia, unspecified; F41.9 Anxiety disorder, unspecified; R53.82 Chronic fatigue, unspecified; F31.9 Bipolar disorder, unspecified; E05.90 Thyrotoxicosis, unspecified without thyrotoxic crisis or storm; G47.30 Sleep apnea, unspecified
CPT/HCPCS: 36415; 71045; 71046; 80053; 83735; 84100; 85025; 87081; 94640; 94760; 94761

== ENCOUNTER → 2019-04-10 | Outpatient (CLI) | payer MEDICARE, OTHER ==
[~2019-04-10] MED LIST changes: +IBUP-30 PO; +LEVO50TA6 PO; +MULT-347 PO
--- NOTE | 2019-04-10 08:59 | Diagnostic Imaging Report ---
INDICATION: Shortness of breath. TIME OF EXAM: 8:53 AM Correlation made with prior chest from 04/03/2019. There is a large right pleural effusion, similar to perhaps slightly larger when compared with one week earlier. No left-sided effusion is seen. There is no pneumothorax. IMPRESSION: Large right pleural effusion, similar to perhaps slightly increased when compared with one week earlier. Dictated by: Dictated on workstation # [id number]
== END ==
LOC: RAD FS 08:47
PROVIDERS: ATTEND Internal Medicine Critical Care Medicine
DX: J90 Pleural effusion, not elsewhere classified (principal); J91.8 Pleural effusion in other conditions classified elsewhere; R91.8 Other nonspecific abnormal finding of lung field
CPT/HCPCS: 71046

== ENCOUNTER → 2019-04-25 | Outpatient (CLI) | payer MEDICARE, OTHER ==
[~2019-04-25] MED LIST changes: +BARIUM SUSPENSION 2.1% (VANILLA SILQ) 450 ML PO ONE; +HOLD METFORMIN - RECEIVED CONTRAST 20 ML VIAL IV SCH; +IBUP-30 PO; +IOHEXOL 350 MG/ML 100 ML (OMNIPAQUE 350) VIAL IV ONE; +LEVO50TA6 PO; +MULT-347 PO; +NS 100 ML (IVPB) BAG IV ONE
[2019-04-25] MEDS: CATHETER FLUSH 10 ML SYR IV PRN ×2 (11:03→11:25)
--- NOTE | 2019-04-25 12:46 | Diagnostic Imaging Report ---
PROCEDURE: CT chest with contrast, CT abdomen and pelvis with and without contrast. TECHNIQUE: Pre and post intravenous contrast axial imaging of the abdomen and pelvis and post contrast axial imaging of the chest were performed. Auto Exposure Controls were utilized during the CT exam to meet ALARA standards for radiation dose reduction. All CT scans use one or more of the following dose optimizing techniques: automated exposure control, MA and/or KvP adjustment based on patient size and exam type or iterative reconstruction. INDICATION: History of renal cancer. Shortness of breath. Low back pain. Right-sided chest tube. COMPARISON: PET/CT on 03/14/2019. FINDINGS: CT CHEST: Innumerable soft tissue nodule is seen throughout the lungs, increased in number and size compared to the prior exam. A marker nodule in the right upper lobe measures 0.9 cm, previously measuring 0.7 cm. There has been interval decrease in size in the right-sided pleural effusion with moderate right-sided pleural effusion remaining. Collapse of the right lower lobe is noted. A small left pleural effusion is seen with left basilar atelectasis. The heart size is within normal limits. A small pericardial effusion is seen. Persistent left SVC is noted which drains into the coronary sinus. Pathologically enlarged lymphadenopathy is seen in the mediastinum and bilateral ervin. A marker nodule in the right paratracheal station measures 3.0 x 2.7 cm, previously measuring 2.9 x 2.3 cm. A metastatic pericardial lymph node is seen in the anterior right lung base measuring 6.6 x 4.4 cm, previously measuring 6.4 x 4.1 cm. A paraesophageal lymph node is seen measuring 3.5 x 3.2 cm, previously measuring 3.0 x 2.8 cm. There is increase in size in the metastatic osseous lesion involving the right third rib. No acute fracture or dislocation is seen in the thoracic spine. CT ABDOMEN AND PELVIS: Large enhancing exophytic mass is again seen in the mid aspect and inferior pole of the left kidney measuring approximately 7.3 x 8.4 cm and 9.9 cm craniocaudal. The left portal vein is patent. No enhancing mass is seen in the right kidney. No evidence of hydronephrosis or nephrolithiasis. The urinary bladder is nondistended. Multiple hypoattenuating foci throughout the liver. An irregular subtle region of abnormal enhancement is seen in the inferior right hepatic lobe measuring 6.5 x 3.7 cm (image 157, series 3). The portal vein is patent. Cholelithiasis is present without CT evidence of acute cholecystitis. The spleen, pancreas, and adrenal glands have a normal appearance. Mildly prominent retroperitoneal lymph nodes are present in the upper abdomen. The bowel loops are nondilated. There is no free fluid or free air. The osseous structures demonstrate no acute abnormalities. There is no free air, loculated collection, or adenopathy in the pelvis. IMPRESSION: 1. Redemonstration of the large exophytic enhancing left renal mass representing renal cell carcinoma. Widespread metastatic disease in the chest has progressed since the prior exam. There is also redemonstration of a likely metastatic lesion in the inferior aspect of the right hepatic lobe. No evidence of renal vein invasion/thrombosis. No hydronephrosis bilaterally. 2. Interval decrease in size in the right-sided pleural effusion, now moderate in size. There is also a small left pleural effusion. 3. Cholelithiasis. Dictated by: Dictated on workstation # [id number]
--- NOTE | 2019-04-25 14:34 | Diagnostic Imaging Report ---
INDICATION: Renal cell carcinoma. TECHNIQUE: Anterior and posterior whole body planar imaging was performed three hours after administration of 26.8 mCi of technetium-99m MDP. FINDINGS: There is a focal area of increased activity in the anterolateral aspect of the right third rib. There is also increased activity in the anterior aspect of the right seventh rib. Both of these appear to correlate with osseous metastatic disease on the recent CT chest, some slight increased activity in the proximal tibia and ankles and shoulders likely degenerative. There is some minimal uptake near the thoracolumbar junction also likely degenerative. There is physiologic uptake within the kidneys bilaterally with excretion of the urinary bladder. IMPRESSION: Abnormal activity in two right ribs highly suspect for osseous metastatic disease There are a few additional foci of increased activity as described likely reflecting degenerative disease, although the possibility of other subtle metastasis certainly cannot be excluded. Dictated by: Dictated on workstation # [id number]
== END ==
LOC: CARD 10:50
PROVIDERS: ATTEND Internal Medicine Hematology & Oncology
DX: C64.2 Malignant neoplasm of left kidney, except renal pelvis (principal); J90 Pleural effusion, not elsewhere classified; K80.20 Calculus of gallbladder without cholecystitis without obstruction
CPT/HCPCS: 71260; 74178; 78306

== ENCOUNTER 2019-04-26 05:47 | Outpatient (CLI) | payer MEDICARE, OTHER ==
[~2019-04-26] VITALS: Ht 182.9 cm; Wt 101.8 kg
[~2019-04-26 05:47] MED LIST changes: -BARIUM SUSPENSION 2.1% (VANILLA SILQ) 450 ML PO ONE; -HOLD METFORMIN - RECEIVED CONTRAST 20 ML VIAL IV SCH; -IOHEXOL 350 MG/ML 100 ML (OMNIPAQUE 350) VIAL IV ONE; -NS 100 ML (IVPB) BAG IV ONE
[2019-04-27] MEDS ORDERED: HYDR-34 PO (10:25)
== END 2019-04-26 09:06 ==
LOC: PREOP 05:47
PROVIDERS: ATTEND Surgery
DX: Z01.818 Encounter for other preprocedural examination (principal)

== ENCOUNTER 2019-04-27 09:53 | Day surgery (SDC) | payer MEDICARE, OTHER ==
--- NOTE | 2019-04-26 08:04 | HISTORY AND PHYSICAL ---
DATE OF SERVICE: 04/27/2019 PROCEDURE DATE: 04/27/2019. ATTENDING PRIMARY CARE PHYSICIAN: Dr. Chun and Dr. Nolan. HISTORY OF PRESENT ILLNESS: The patient is a 68-year-old male, who is known to us. He was initially seen by us in 02/2019, where he had lesions identified at the left kidney, right chest as well as esophagus and mediastinum. He did undergo an EGD at that time and biopsies were obtained, which were negative for any H. pylori as well as negative for Capone's esophagus or any other malignancies. He was then seen by a arts and crafts teacher for worsening shortness of breath, dyspnea on exertion and was also found to have a recurrent large right pleural effusion. He has had multiple thoracenteses with reoccurrence. He was worked up for his lesions and was found to have metastatic renal clear cell cancer. He was admitted and we were consulted for placement of a right tunneled pleural catheter for self-evacuation, when he becomes symptomatic. On 04/11/2019, he did undergo placement of a tunneled right pleural catheter. At that time, 3 liters of straw yellow transudative fluid was evacuated from the right pleural space. The patient tolerated the procedure well and was later discharged home. On today's visit, the patient reports that he is in need of a Groshong port to undergo an immunotherapy. He reports that he does have again metastatic lesions from the renal cell cancer to the lungs as well as lymph nodes. PAST MEDICAL HISTORY: Recurrent right pleural effusions, hypercholesterolemia, anxiety, chronic fatigue syndrome, bipolar, hypertension, BPH and hypothyroidism. PAST SURGICAL HISTORY: Appendectomy, cataract excision and placement of a right tunneled pleural catheter and ureteroscopy with dilatation. ALLERGIES: CODEINE. MEDICATIONS: Lunesta 3 mg daily, ProAir q.i.d., Lexapro 20 mg daily, levothyroxine 50 mcg daily, Viagra 100 mg p.r.n. and tamsulosin 0.4 mg daily. SOCIAL HISTORY: Negative for smoking and negative for alcohol. FAMILY HISTORY: Mother, uterine cancer. Sister, ovarian cancer. Father, hypertension. Grandparents stroke. REVIEW OF SYSTEMS: A well-nourished male in no acute distress. He does report episodes of shortness of breath as well as dyspnea upon exertion. He also does report a mild cough; however, nonproductive. No nausea, vomiting as well as no abdominal pain. No diarrhea or constipation. No red blood per rectum. No dark tarry stools. No fever or chills. No recent inadvertent weight loss. All other review of systems are negative. PHYSICAL EXAMINATION: VITAL SIGNS: Blood pressure is 144/67. Current weight is 224.8 at 6 feet 0 inches. CHEST: Clear. Good breath sounds bilaterally. HEART: Regular, no murmurs. EXTREMITIES: No lower extremity edema. Negative Homans sign. HEENT: No scleral icterus. NECK: No cervical lymphadenopathy. ABDOMEN: Soft, nontender and nondistended. SKIN: Warm, dry and pink. NEUROLOGIC: Awake, alert and oriented x3. ASSESSMENT AND PLAN: A 68-year-old male with metastatic renal clear cell cancer. At this time, he is needing a Groshong port to undergo immunotherapy. The risks and benefits of the procedure as well as the procedure and home care instructions were explained to the patient. The patient verbalized understanding of instructions and agrees to this plan. At this time, we will proceed with placement of a Groshong implantable catheter. Job ID: [id number] DocumentID: [id number] Dictated Date: 04/24/2019 10:53:06 Curatorial Assistant Date: 04/24/2019 11:44:21 Dictated By: DINH KHALIL APRN
[~2019-04-27] VITALS: Ht 182.9 cm; Wt 101.8 kg
[2019-04-27] VITALS (7 sets, daily range): BP systolic 114–154; BP diastolic 54–78
--- NOTE | 2019-04-27 10:24 | Progress Note-Pre Operative ---
Pre-Operative Progress Note H&P Reviewed The H&P was reviewed, patient examined and no changes noted. Date Seen by Provider: Apr 27, 2019 Time Seen by Provider: 10:00 Date H&P Reviewed: Apr 27, 2019 Time H&P Reviewed: 10:00 Pre-Operative Diagnosis: metastatic renal clear cell carcinoma NICK ADRIAN MD Apr 27, 2019 10:24
[2019-04-27] MEDS ORDERED: HYDR-34 PO (10:25)
--- NOTE | 2019-04-27 10:26 | Discharge Inst-Surgical ---
D/C Lap Instructions-KIDO New, Converted, or Re-Newed RX: RX on Chart Follow Up PRN Activity as tolerated May access and use catheter at any time. Regular Diet Symptoms to Report: Fever over 101 degree F, Nausea/Vomiting Infection Signs and Symptoms to report: Increased redness, Foul odor of wound, Increased drainage Bathing instructions: May shower Operative Area Clean/Dry; Keep incision clean/dry If any problems/questions: Contact your physician or go to Emergency Room NICK ADRIAN MD Apr 27, 2019 10:26
[2019-04-27] MEDS ORDERED: LACTATED RINGERS 1,000 ML IV PRN ×2 (10:29→10:30)
[2019-04-27] MEDS ORDERED: HYDROcodone/APAP 5 MG/325 MG (LORTAB) TAB PO ONE (10:30)
[2019-04-27] MEDS ORDERED: morphine INJ 10 MG/ML 1ML (SYR OR VIAL) IVP PRN ×2 (10:30)
[2019-04-27] MEDS ORDERED: ONDANSETRON 4 MG/2 ML (SDV) Z0FRAN IVP PRN ×2 (10:30→14:45)
[2019-04-27] MEDS ORDERED: ceFAZolin 2 GM/50 ML NS 50 ML IV ONE (10:30)
[2019-04-27] MEDS ORDERED: ACETAMINOPHEN 325 MG TABLET PO PRN (10:30)
[2019-04-27] MEDS ORDERED: BUP/EPI 0.5% 1:200,000 (SENSORCAINE) 30 ML VIAL ONE (12:27)
[2019-04-27] MEDS ORDERED: HEParin (CENTRAL IV FLUSH) 500 UNIT/5 ML SYR ONE (12:27)
[2019-04-27] MEDS ORDERED: 0.9% SODIUM CHLORIDE PF INJ 20 ML VIAL ONE (12:27)
[2019-04-27] MEDS ORDERED: PROPOFOL INJECTION 50 ML IV ONE ×2 (13:07→14:18)
[2019-04-27] MEDS ORDERED: MIDAZOLAM 2 MG/2 ML (VERSED) VIAL ONE (13:24)
--- NOTE | 2019-04-27 14:29 | Diagnostic Imaging Report ---
EXAMINATION: Fluoroscopy. INDICATION: Groshong catheter placement. TECHNIQUE: Fluoroscopic assistance was provided for Dr. Adorno during his Groshong catheter insertion. 123.5 seconds of fluoro time was utilized. FINDINGS: A single spot film of the thorax was obtained. There does appear to be a radiopaque line coursing over the aortic knob on the left. In reviewing the CT chest, abdomen, and pelvis exam of 04/25/2019, there does appear to be a left-sided superior vena cava. This is a developmental variant. I would recommend that a follow-up chest exam be performed for further study. IMPRESSION: 1. Fluoroscopic assistance was provided for Dr. Adorno. 2. The newly inserted Groshong catheter appears to overlie the midportion of the left-sided superior vena cava. A follow-up exam would be recommended for further study. 3. These results were discussed with Dr. Adorno. Dictated by: Dictated on workstation # [id number]
--- NOTE | 2019-04-27 14:33 | Anesthesia-General Post-Op ---
MAC Patient Condition Mental Status/LOC: Same as Preop Cardiovascular: Satisfactory Nausea/Vomiting: Absent Respiratory: Satisfactory Pain: Controlled Complications: Absent Post Op Complications Complications None Follow Up Care/Instructions Patient Instructions None needed. Anesthesiology Discharge Order Discharge Order Patient is doing well, no complaints, stable vital signs, no apparent adverse anesthesia problems. No complications reported per nursing. LEROY AGOSTO CRNA Apr 27, 2019 14:33
--- NOTE | 2019-04-27 14:44 | Progress Note-Post Operative ---
Post-Operative Progess Note Surgeon (s)/Sales And Production Manager (s) Surgeon NICK ADRIAN MD Sales And Production Manager: georgina taveras BATTALION CHIEF Pre-Operative Diagnosis metastatic renal clear cell carcinoma Post-Operative Diagnosis same Procedure & Operative Findings Date of Procedure 04/27/19 Procedure Performed/Findings placement left subclavian groshong implantable catheter under flouroscopy. Anesthesia Type mac with local Estimated Blood Loss Estimated blood loss (mL): minimal Specimens/Packing Specimens Removed none NICK ADRIAN MD Apr 27, 2019 14:44
[2019-04-27] MEDS ORDERED: MEPERIDINE (DEMEROL) INJ 50 MG/ML IVP ONE (14:45)
[2019-04-27] MEDS ORDERED: fentaNYL INJECTION 100 MCG/2 ML AMP IVP ONE (14:45)
[2019-04-27] MEDS ORDERED: PROMETHAZINE INJ 25 MG/ML (PHENERGAN) AMP IVP ONE (14:45)
--- NOTE | 2019-04-27 15:04 | Diagnostic Imaging Report ---
CLINICAL INDICATION: Postop port placement. EXAM: Portable chest x-ray upright view. COMPARISONS: Portable chest x-ray dated 04/12/2019. FINDINGS: Stable cardiomegaly with mild pulmonary vascular congestion. There is slight improved aeration of the right midlung field with persistent consolidation in the right lung base. There are stable mild patchy airspace opacities in left lung base. There is concern for small right pleural effusion. There is no pneumothorax. Chest tube is again seen overlying the right hemithorax. IMPRESSION: 1: There is slight improved aeration of the right midlung field with otherwise stable and persistent bibasilar infiltrates (right side more than the left). 2: Possible right pleural effusion. 3: Stable cardiomegaly with mild pulmonary vascular congestion. Dictated by: Dictated on workstation # [id number]
--- NOTE | 2019-04-28 01:59 | OPERATIVE REPORT ---
DATE OF SERVICE: 04/27/2019 ATTENDING PRIMARY CARE PHYSICIAN: Jaime Chun MD PREOPERATIVE DIAGNOSIS: Metastatic renal clear cell cancer. POSTOPERATIVE DIAGNOSIS: Metastatic renal clear cell cancer. PROCEDURE: Placement of left subclavian Groshong implantable catheter under fluoroscopy. SURGEON: Nick Adorno MD DERRICKMAN HELPER: Víctor Gonzalez APRN ANESTHESIA: Monitored anesthesia care with local. ESTIMATED BLOOD LOSS: Minimal. FINDINGS: Catheter tip at superior vena cava -- right atrial junction. DISPOSITION: The patient tolerated the procedure well. INDICATIONS: The patient is a 68-year-old male known to us. We had initially seen him in 02/2019 where a lesion was identified in the left kidney and right chest as well as the esophagus and mediastinum. He underwent an EGD and biopsies were collected, which were negative for Capone's esophagus as well as negative for H. pylori or any other malignancies. He was found to have a recurrent large right pleural effusion and multiple thoracentesis were performed, which was eventually worked up and found to be metastatic renal cell cancer. We had done a recent right tunneled pleural catheter for self-evacuation when he became symptomatic. He will need a Groshong implantable catheter to undergo immunotherapy for metastatic disease. DESCRIPTION OF PROCEDURE: The patient was brought to the operating room, laid supine on the table. After adequate IV pain and stated medications and monitored anesthesia care, the chest and neck were prepped and draped in standard surgical fashion. A 0.5% Marcaine with epinephrine was then used to anesthetize the overlying skin in the left subclavian region and the left subclavian vein was cannulated withdrawing the venous blood. The guidewire was then inserted under fluoroscopy and the cannulating needle removed and a skin incision made using a #15 blade. The venous dilator and the sheath were then introduced and the dilator and guidewire were then removed and the Groshong implantable catheter placed under fluoroscopy until the tip was at the superior vena cava/right atrial junction. The sheath was then removed. The inner wire within the catheter was then removed and the catheter cut down to size and port placed onto the catheter. The subcutaneous reservoir was then created by extending the skin lesion laterally and a plane was then created between the subcutaneous fat and the anterior pectoralis fascia using blunt dissection as well as electrocautery. Good hemostasis was observed. The port was then placed into the reservoir and sutured to the anterior pectoralis fascia using interrupted 3-0 Vicryl sutures. Subcutaneous tissue was then reapproximated using 3-0 Vicryl interrupted sutures and the skin was closed using 4-0 Monocryl running subcuticular suture. Wound was then cleaned and covered with Dermabond. The catheter was accessed with a Parra needle and venous blood drawn and heparinized saline pushed in without any resistance. The patient tolerated the procedure well. We will get a post-procedure chest x-ray once confirmation of placement catheter may be accessed and used at any time. Job ID: [id number] DocumentID: [id number] Dictated Date: 04/27/2019 14:17:30 Furnace Hand Date: 04/27/2019 20:18:07 Dictated By: NICK ADORNO MD
== END 2019-04-27 16:03 | disposition home or self-care (01) ==
LOC: SDC 09:53
PROVIDERS: ATTEND Surgery
DX: C64.9 Malignant neoplasm of unspecified kidney, except renal pelvis (principal); C79.9 Secondary malignant neoplasm of unspecified site; I10 Essential (primary) hypertension; I95.9 Hypotension, unspecified; G47.33 Obstructive sleep apnea (adult) (pediatric); E78.00 Pure hypercholesterolemia, unspecified; R53.82 Chronic fatigue, unspecified; F31.9 Bipolar disorder, unspecified; F41.9 Anxiety disorder, unspecified; Z90.89 Acquired absence of other organs; Z79.899 Other long term (current) drug therapy; Z80.41 Family history of malignant neoplasm of ovary; Z80.49 Family history of malignant neoplasm of other genital organs; Z82.3 Family history of stroke
CPT/HCPCS: 71045; 87081

== ENCOUNTER → 2019-05-15 | Outpatient (CLI) | payer MEDICARE, OTHER ==
[~2019-05-15] MED LIST changes: +HYDR-34 PO
--- NOTE | 2019-05-15 16:25 | Diagnostic Imaging Report ---
INDICATION: Shortness of breath PA and lateral chest There is a right-sided thoracostomy tube. Left subclavian Port-A-Cath tip passes along the left-sided mediastinum presumably within a persistent left SVC. There is some consolidation of the right lung base with right pleural thickening. Left lung is clear. IMPRESSION: Right basilar consolidation could be a combination of infiltrate, atelectasis and/or effusion. Slight improvement compared to exam dated 04/27/2019. Dictated by: Dictated on workstation # [id number]
== END ==
LOC: RAD FS 13:52
PROVIDERS: ATTEND Internal Medicine Hematology & Oncology
DX: C64.2 Malignant neoplasm of left kidney, except renal pelvis (principal); R05 Cough; Z95.828 Presence of other vascular implants and grafts
CPT/HCPCS: 71046

== ENCOUNTER 2019-05-25 09:29 | Outpatient (RCR) | payer MEDICARE, OTHER ==
[2019-04-24 13:08] LABS: BILIRUBIN,URINE NEGATIVE (NEGATIVE); CLARITY,URINE CLEAR; COLOR,URINE YELLOW; GLUCOSE, URINE (UA) NEGATIVE (NEGATIVE); KETONES,URINE NEGATIVE (NEGATIVE); LEUKOCYTE ESTERASE ,URINE NEGATIVE (NEGATIVE); NITRITE,URINE NEGATIVE (NEGATIVE); PH,URINE 5.5 (5-9); PROTEIN,URINE NEGATIVE (NEGATIVE)
[2019-04-24 13:31] LABS: BACTERIA,URINE NEGATIVE /HPF; SQUAMOUS EPITHELIAL CELL,UR RARE /HPF
[2019-05-04 13:53] LABS: BASOPHILS % (AUTO) 0 % (0-10); EOSINOPHILS # (AUTO) 0.1 10^3/uL (0.0-0.3); EOSINOPHILS % (AUTO) 2 % (0-10); HEMATOCRIT 37 % (40-54); HEMOGLOBIN 12.3 G/DL (13.3-17.7); LYMPHOCYTES # (AUTO) 1.1 X 10^3 (1.0-4.0); LYMPHOCYTES % (AUTO) 22 % (12-44); MEAN CORPUSCULAR HEMOGLOBIN 26 PG (25-34); MEAN CORPUSCULAR HGB CONC 33 G/DL (32-36); MEAN CORPUSCULAR VOLUME 79 FL (80-99); MEAN PLATELET VOLUME 10.2 FL (7.4-10.4); MONOCYTES # (AUTO) 0.6 X 10^3 (0.0-1.0); MONOCYTES % (AUTO) 12 % (0-12); NEUTROPHILS # (AUTO) 3.3 X 10^3 (1.8-7.8); NEUTROPHILS % (AUTO) 64 % (42-75); PLATELET COUNT 275 10^3/uL (130-400); RED CELL DISTRIBUTION WIDTH 14.7 % (10.0-14.5); WHITE BLOOD COUNT 5.1 10^3/uL (4.3-11.0)
[2019-05-04 14:14] LABS: ALANINE AMINOTRANSFERASE 18 U/L (0-55); ALBUMIN 3.8 GM/DL (3.2-4.5); ALKALINE PHOSPHATASE 101 U/L (40-136); BILIRUBIN,TOTAL 0.4 MG/DL (0.1-1.0); BUN/CREATININE RATIO 14; CALCIUM 9.4 MG/DL (8.5-10.1); CARBON DIOXIDE 23 MMOL/L (21-32); CHLORIDE 106 MMOL/L (98-107); CREATININE SERUM 1.06 MG/DL (0.60-1.30); GFR ESTIMATED > 60; GLUCOSE 92 MG/DL (70-105); POTASSIUM 4.2 MMOL/L (3.6-5.0); SODIUM 137 MMOL/L (135-145); TOTAL PROTEIN 6.8 GM/DL (6.4-8.2)
[~2019-05-25 09:29] MED LIST changes: +IPILIMUMAB IV SCH; +NIVOLUMAB IV SCH; +NS IV 500 ML (CANCER CENTER) 500 ML IV SCH; +NS IV SCH
[2019-05-25 09:51] LABS: BILIRUBIN,URINE NEGATIVE (NEGATIVE); CLARITY,URINE CLEAR; COLOR,URINE YELLOW; GLUCOSE, URINE (UA) NEGATIVE (NEGATIVE); KETONES,URINE NEGATIVE (NEGATIVE); LEUKOCYTE ESTERASE ,URINE NEGATIVE (NEGATIVE); NITRITE,URINE NEGATIVE (NEGATIVE); PROTEIN,URINE NEGATIVE (NEGATIVE)
[2019-05-25 10:00] LABS: BASOPHILS % (AUTO) 1 % (0-10); EOSINOPHILS # (AUTO) 0.2 10^3/uL (0.0-0.3); EOSINOPHILS % (AUTO) 3 % (0-10); HEMATOCRIT 38 % (40-54); HEMOGLOBIN 12.6 G/DL (13.3-17.7); LYMPHOCYTES # (AUTO) 1.5 X 10^3 (1.0-4.0); LYMPHOCYTES % (AUTO) 22 % (12-44); MEAN CORPUSCULAR HEMOGLOBIN 26 PG (25-34); MEAN CORPUSCULAR HGB CONC 33 G/DL (32-36); MEAN CORPUSCULAR VOLUME 78 FL (80-99); MEAN PLATELET VOLUME 9.3 FL (7.4-10.4); MONOCYTES # (AUTO) 0.5 X 10^3 (0.0-1.0); MONOCYTES % (AUTO) 7 % (0-12); NEUTROPHILS # (AUTO) 4.7 X 10^3 (1.8-7.8); NEUTROPHILS % (AUTO) 67 % (42-75); PLATELET COUNT 411 10^3/uL (130-400); RED CELL DISTRIBUTION WIDTH 14.4 % (10.0-14.5)
[2019-05-25 10:22] LABS: ALANINE AMINOTRANSFERASE 26 U/L (0-55); ALBUMIN 3.8 GM/DL (3.2-4.5); ALKALINE PHOSPHATASE 115 U/L (40-136); BILIRUBIN,TOTAL 0.6 MG/DL (0.1-1.0); BUN/CREATININE RATIO 17; CALCIUM 9.5 MG/DL (8.5-10.1); CARBON DIOXIDE 24 MMOL/L (21-32); CHLORIDE 106 MMOL/L (98-107); CREATININE SERUM 1.03 MG/DL (0.60-1.30); GFR ESTIMATED > 60; GLUCOSE 124 MG/DL (70-105); POTASSIUM 4.2 MMOL/L (3.6-5.0); SODIUM 138 MMOL/L (135-145); TOTAL PROTEIN 7.3 GM/DL (6.4-8.2)
== END 2019-06-13 16:21 | disposition home or self-care (01) ==
LOC: ONC 09:29
PROVIDERS: ATTEND Internal Medicine Hematology & Oncology
DX: Z51.11 Encounter for antineoplastic chemotherapy (principal); C64.2 Malignant neoplasm of left kidney, except renal pelvis
CPT/HCPCS: 36591; 80053; 81000; 81002; 84443; 85025; 93005; 96413; 96417; 99213; 99214

== ENCOUNTER → 2019-07-24 | Outpatient (CLI) | payer MEDICARE, OTHER ==
[~2019-07-24] MED LIST changes: +CATHETER FLUSH 10 ML SYR IV PRN; +HOLD METFORMIN - RECEIVED CONTRAST 20 ML VIAL IV SCH; +IOHEXOL 350 MG/ML 100 ML (OMNIPAQUE 350) VIAL IV ONE; -IPILIMUMAB IV SCH; -NIVOLUMAB IV SCH; +NS 100 ML (IVPB) BAG IV ONE; -NS IV 500 ML (CANCER CENTER) 500 ML IV SCH; -NS IV SCH
--- NOTE | 2019-07-24 13:11 | Diagnostic Imaging Report ---
PROCEDURE: CT chest with contrast, CT abdomen and pelvis with and without contrast. TECHNIQUE: Pre and post intravenous contrast axial imaging of the abdomen and pelvis and post contrast axial imaging of the chest were performed. Auto Exposure Controls were utilized during the CT exam to meet ALARA standards for radiation dose reduction. INDICATION: Renal cell carcinoma, followup. Correlation is made with prior CT from 04/25/2019. CT CHEST: No axillary lymphadenopathy is detected. A right paratracheal lymph node at the level of aortic arch has significantly reduced in size, now measuring approximately 1.2 x 1.0 cm compared with 3.0 x 2.7 cm on prior. The right paraesophageal node has also significantly reduced in size, is now barely visible. There has been marked improvement in bilateral hilar lymphadenopathy. No enlarged nodes in the right hilum are seen. Left hilum shows small lymph nodes. The large mass in the right anterior pericardial region measures 3.9 x 2.6 cm compared with 6.6 x 4.4 cm on prior. This does show some central low density consistent with some necrosis. There is a moderate-sized right pleural effusion. There is a right chest tube in place. The left-sided pleural fluid has resolved. Previously noted innumerable bilateral pulmonary nodules show marked improvement and they now are now barely visible. There are several nodules only 1 to 2 mm in size on today's study. Expansile lesion of the anterior right 3rd rib is also markedly improved. The areas of pleural nodularity consistent with pleural metastatic disease as seen on prior exam are no longer appreciated. Expansile lesion involving the right aspect of the T12 vertebral body also is markedly improved. Soft tissue component is no longer appreciated. IMPRESSION: Significant response to therapy since prior CT from 04/25/2019. There has been marked improvement in thoracic lymphadenopathy and pulmonary metastatic disease. There has also been improvement in the pleural metastatic disease. Moderate right-sided effusion persists. Left-sided pleural fluid has resolved. There has been also marked improvement in osseous metastatic disease. CT abdomen and pelvis: Tiny low densities throughout the liver are similar to prior exam and most likely cysts. Ill-defined area of low density in the inferior right lobe liver is not as well appreciated on today's study. There is some low density dislocation but much smaller measuring 19 mm compared with 65 mm. This may represent a decreasing metastasis. There are small stones in the gallbladder. No biliary ductal dilatation is seen. The pancreas and spleen are unremarkable. There are no adrenal masses. The mixed solid and cystic left renal mass shows significant improvement, now measuring 6.9 cm AP x 5.1 cm transverse compare with 8.4 cm AP x 7.3 cm transverse on prior. The right kidney is unremarkable. Aorta is non-aneurysmal. There is no central retroperitoneal or mesenteric lymphadenopathy. The bowel loops are normal caliber. There is no ascites. The bladder is decompressed. Prostate is unremarkable. No definite pelvic lymphadenopathy is seen. IMPRESSION: 1. Overall improved appearance of the abdomen and pelvis since prior CT from 04/25/2019. Large left renal mass demonstrates reduction in size. There is no evidence of abdominal or pelvic lymphadenopathy. Ill-defined lesion inferior right lobe liver also shows marked improvement. 2. Cholelithiasis. Dictated by: Dictated on workstation # [id number]
--- NOTE | 2019-07-24 14:17 | Diagnostic Imaging Report ---
INDICATION: Renal cell carcinoma. COMPARISON: 04/25/2019. TECHNIQUE: The patient was administered 26.3 mCi of technetium 99m MDP intravenously and whole-body imaging was performed after a 3 hour delay. FINDINGS: Uptake of activity by the axial and appendicular skeleton is noted. There is uptake by the kidneys with excretion into the urinary bladder. Activity involving the upper right and lower right anterior ribs is similar to the prior exam. Abnormal activity at the level of the T12 vertebral body on the right side is also similar to the prior exam. No new foci of abnormal tracer accumulation is identified. IMPRESSION: Stable whole body bone scan when compared to the examination from 04/25/2019. Dictated by: Dictated on workstation # [id number]
== END ==
LOC: CARD 11:47
PROVIDERS: ATTEND Internal Medicine Hematology & Oncology
DX: C64.2 Malignant neoplasm of left kidney, except renal pelvis (principal); K80.20 Calculus of gallbladder without cholecystitis without obstruction
CPT/HCPCS: 71260; 74178; 78306

== ENCOUNTER 2019-08-03 13:23 | Outpatient (RCR) | payer MEDICARE, OTHER ==
[2019-06-15 10:07] LABS: BASOPHILS % (AUTO) 0 % (0-10); EOSINOPHILS # (AUTO) 0.3 10^3/uL (0.0-0.3); EOSINOPHILS % (AUTO) 4 % (0-10); HEMATOCRIT 39 % (40-54); HEMOGLOBIN 12.8 G/DL (13.3-17.7); LYMPHOCYTES # (AUTO) 1.7 X 10^3 (1.0-4.0); LYMPHOCYTES % (AUTO) 29 % (12-44); MEAN CORPUSCULAR HEMOGLOBIN 26 PG (25-34); MEAN CORPUSCULAR HGB CONC 33 G/DL (32-36); MEAN CORPUSCULAR VOLUME 79 FL (80-99); MEAN PLATELET VOLUME 10.2 FL (7.4-10.4); MONOCYTES # (AUTO) 0.5 X 10^3 (0.0-1.0); MONOCYTES % (AUTO) 9 % (0-12); NEUTROPHILS # (AUTO) 3.5 X 10^3 (1.8-7.8); NEUTROPHILS % (AUTO) 58 % (42-75); PLATELET COUNT 220 10^3/uL (130-400); RED CELL DISTRIBUTION WIDTH 15.7 % (10.0-14.5)
[2019-06-15 10:25] LABS: ALANINE AMINOTRANSFERASE 34 U/L (0-55); ALBUMIN 3.8 GM/DL (3.2-4.5); ALKALINE PHOSPHATASE 97 U/L (40-136); BILIRUBIN,TOTAL 0.4 MG/DL (0.1-1.0); BUN/CREATININE RATIO 19; CALCIUM 8.9 MG/DL (8.5-10.1); CARBON DIOXIDE 22 MMOL/L (21-32); CHLORIDE 106 MMOL/L (98-107); CREATININE SERUM 1.06 MG/DL (0.60-1.30); GFR ESTIMATED > 60; GLUCOSE 135 MG/DL (70-105); SODIUM 137 MMOL/L (135-145); TOTAL PROTEIN 7.1 GM/DL (6.4-8.2)
[2019-06-15 10:53] LABS: BILIRUBIN,URINE NEGATIVE (NEGATIVE); CLARITY,URINE SL CLOUDY; COLOR,URINE YELLOW; GLUCOSE, URINE (UA) NEGATIVE (NEGATIVE); KETONES,URINE NEGATIVE (NEGATIVE); LEUKOCYTE ESTERASE ,URINE NEGATIVE (NEGATIVE); NITRITE,URINE NEGATIVE (NEGATIVE); PROTEIN,URINE NEGATIVE (NEGATIVE)
[2019-06-15 11:19] LABS: BACTERIA,URINE NEGATIVE /HPF; WBC,URINE RARE /HPF
[2019-07-06 09:34] LABS: BASOPHILS % (AUTO) 1 % (0-10); EOSINOPHILS # (AUTO) 0.3 10^3/uL (0.0-0.3); EOSINOPHILS % (AUTO) 5 % (0-10); HEMATOCRIT 40 % (40-54); HEMOGLOBIN 13.3 G/DL (13.3-17.7); LYMPHOCYTES # (AUTO) 1.7 X 10^3 (1.0-4.0); LYMPHOCYTES % (AUTO) 33 % (12-44); MEAN CORPUSCULAR HEMOGLOBIN 26 PG (25-34); MEAN CORPUSCULAR HGB CONC 33 G/DL (32-36); MEAN CORPUSCULAR VOLUME 79 FL (80-99); MEAN PLATELET VOLUME 10.4 FL (7.4-10.4); MONOCYTES # (AUTO) 0.5 X 10^3 (0.0-1.0); MONOCYTES % (AUTO) 10 % (0-12); NEUTROPHILS # (AUTO) 2.6 X 10^3 (1.8-7.8); NEUTROPHILS % (AUTO) 51 % (42-75); PLATELET COUNT 223 10^3/uL (130-400); RED CELL DISTRIBUTION WIDTH 16.6 % (10.0-14.5); WHITE BLOOD COUNT 5.1 10^3/uL (4.3-11.0)
[2019-07-06 09:38] LABS: BILIRUBIN,URINE NEGATIVE (NEGATIVE); CLARITY,URINE CLEAR; COLOR,URINE YELLOW; GLUCOSE, URINE (UA) NEGATIVE (NEGATIVE); KETONES,URINE NEGATIVE (NEGATIVE); LEUKOCYTE ESTERASE ,URINE NEGATIVE (NEGATIVE); NITRITE,URINE NEGATIVE (NEGATIVE); PROTEIN,URINE NEGATIVE (NEGATIVE)
[2019-07-06 09:47] LABS: BACTERIA,URINE NEGATIVE /HPF; RBC,URINE RARE /HPF; WBC,URINE RARE /HPF
[2019-07-06 09:49] LABS: ALANINE AMINOTRANSFERASE 36 U/L (0-55); ALBUMIN 3.7 GM/DL (3.2-4.5); ALKALINE PHOSPHATASE 90 U/L (40-136); BILIRUBIN,TOTAL 0.3 MG/DL (0.1-1.0); BUN/CREATININE RATIO 18; CALCIUM 8.8 MG/DL (8.5-10.1); CARBON DIOXIDE 22 MMOL/L (21-32); CHLORIDE 108 MMOL/L (98-107); CREATININE SERUM 0.83 MG/DL (0.60-1.30); GFR ESTIMATED > 60; GLUCOSE 87 MG/DL (70-105); POTASSIUM 4.4 MMOL/L (3.6-5.0); SODIUM 138 MMOL/L (135-145); TOTAL PROTEIN 6.9 GM/DL (6.4-8.2)
[~2019-08-03 13:23] MED LIST changes: +IPILIMUMAB IV SCH; +NIVOLUMAB IV SCH; +NS IV 500 ML (CANCER CENTER) 500 ML IV SCH; +NS IV SCH
[2019-08-03 13:52] LABS: BASOPHILS % (AUTO) 0 % (0-10); EOSINOPHILS # (AUTO) 0.2 10^3/uL (0.0-0.3); EOSINOPHILS % (AUTO) 3 % (0-10); HEMATOCRIT 40 % (40-54); HEMOGLOBIN 13.5 G/DL (13.3-17.7); LYMPHOCYTES # (AUTO) 1.9 X 10^3 (1.0-4.0); LYMPHOCYTES % (AUTO) 27 % (12-44); MEAN CORPUSCULAR HEMOGLOBIN 27 PG (25-34); MEAN CORPUSCULAR HGB CONC 33 G/DL (32-36); MEAN CORPUSCULAR VOLUME 80 FL (80-99); MEAN PLATELET VOLUME 10.7 FL (7.4-10.4); MONOCYTES # (AUTO) 0.7 X 10^3 (0.0-1.0); MONOCYTES % (AUTO) 10 % (0-12); NEUTROPHILS # (AUTO) 4.1 X 10^3 (1.8-7.8); NEUTROPHILS % (AUTO) 60 % (42-75); PLATELET COUNT 240 10^3/uL (130-400); RED CELL DISTRIBUTION WIDTH 16.4 % (10.0-14.5); WHITE BLOOD COUNT 6.8 10^3/uL (4.3-11.0)
[2019-08-03 14:27] LABS: ALANINE AMINOTRANSFERASE 31 U/L (0-55); ALKALINE PHOSPHATASE 94 U/L (40-136); BILIRUBIN,TOTAL 0.3 MG/DL (0.1-1.0); BUN/CREATININE RATIO 20; CALCIUM 9.1 MG/DL (8.5-10.1); CARBON DIOXIDE 23 MMOL/L (21-32); CHLORIDE 106 MMOL/L (98-107); CREATININE SERUM 0.89 MG/DL (0.60-1.30); GFR ESTIMATED > 60; GLUCOSE 81 MG/DL (70-105); POTASSIUM 4.6 MMOL/L (3.6-5.0); SODIUM 137 MMOL/L (135-145); TOTAL PROTEIN 7.4 GM/DL (6.4-8.2)
[2019-08-03] MEDS ORDERED: NIVOLUMAB 480 MG in NS (IVPB) CANCER CENTER 100 ML IV SCH (14:45)
[2019-08-03 15:32] LABS: BILIRUBIN,URINE NEGATIVE (NEGATIVE); CLARITY,URINE CLEAR; COLOR,URINE YELLOW; GLUCOSE, URINE (UA) NEGATIVE (NEGATIVE); KETONES,URINE NEGATIVE (NEGATIVE); LEUKOCYTE ESTERASE ,URINE NEGATIVE (NEGATIVE); NITRITE,URINE NEGATIVE (NEGATIVE); PH,URINE 5.5 (5-9); PROTEIN,URINE NEGATIVE (NEGATIVE)
[2019-08-03 15:51] LABS: BACTERIA,URINE TRACE /HPF; RBC,URINE RARE /HPF; WBC,URINE RARE /HPF
== END 2019-08-16 15:33 | disposition home or self-care (01) ==
LOC: ONC 13:23
PROVIDERS: ATTEND Internal Medicine Hematology & Oncology
DX: Z51.11 Encounter for antineoplastic chemotherapy (principal); C80.1 Malignant (primary) neoplasm, unspecified; C79.00 Secondary malignant neoplasm of unspecified kidney and renal pelvis
CPT/HCPCS: 36591; 80053; 81000; 84443; 85025; 93005; 96413; 96417

== ENCOUNTER → 2019-08-03 | Outpatient (CLI) | payer MEDICARE, OTHER ==
[~2019-08-03] MED LIST changes: -CATHETER FLUSH 10 ML SYR IV PRN; -HOLD METFORMIN - RECEIVED CONTRAST 20 ML VIAL IV SCH; -IOHEXOL 350 MG/ML 100 ML (OMNIPAQUE 350) VIAL IV ONE; -NS 100 ML (IVPB) BAG IV ONE
== END ==
LOC: RAD 13:56
PROVIDERS: ATTEND Internal Medicine Hematology & Oncology
DX: C64.2 Malignant neoplasm of left kidney, except renal pelvis (principal); I10 Essential (primary) hypertension

== ENCOUNTER → 2019-10-19 | Outpatient (CLI) | payer MEDICARE, OTHER ==
[~2019-10-19] MED LIST changes: +BARIUM SUSPENSION 2.1% (VANILLA SILQ) 450 ML PO ONE; +CATHETER FLUSH 10 ML SYR IV PRN; +HOLD METFORMIN - RECEIVED CONTRAST 20 ML VIAL IV SCH; +IOHEXOL 350 MG/ML 100 ML (OMNIPAQUE 350) VIAL IV ONE; -IPILIMUMAB IV SCH; -NIVOLUMAB IV SCH; +NS 100 ML (IVPB) BAG IV ONE; -NS IV 500 ML (CANCER CENTER) 500 ML IV SCH; -NS IV SCH
--- NOTE | 2019-10-19 12:28 | Diagnostic Imaging Report ---
PROCEDURE: CT chest with contrast, CT abdomen and pelvis with and without contrast. TECHNIQUE: Pre and post intravenous contrast axial imaging of the abdomen and pelvis and post contrast axial imaging of the chest were performed. Auto Exposure Controls were utilized during the CT exam to meet ALARA standards for radiation dose reduction. INDICATION: Renal cancer. COMPARISON: Correlation is made with prior CT from 07/24/2019. FINDINGS: CT CHEST: No axillary lymphadenopathy is identified. Right paratracheal lymph node previously noted at the level of the aortic arch measures 9 mm x 13 mm compared with 10 mm x 12 mm on prior. The right distal paraesophageal nodule is not measurable on today's study. No hilar lymphadenopathy is detected. The mass in the right cardiophrenic space measures 4.0 x 2.5 cm compared with 3.9 x 2.6 cm on prior. No pericardial fluid is seen. Right-sided pleural effusion has decreased in size. Right-sided pleural drain has been removed. A marker nodule in the right lung apex is stable at 4 to 5 mm. A right upper lobe nodule is stable at approximately 4 to 5 mm, image 51. Additional tiny 1 to 2 mm nodules appear to be stable. No new mass is detected. Right anterior third rib lesion is stable. Lesion involving the right aspect of the T12 vertebral body is stable. IMPRESSION: Overall stable CT chest when compared with 07/24/2019 with the exception of some reduced pleural fluid on the right. No new abnormality is detected. CT ABDOMEN AND PELVIS: Hepatic low densities persist and again most likely represent cysts. The noncystic low density in the inferior right lobe of the liver measures 16 mm compared with 19 mm on prior. Gallbladder contains multiple stones. No biliary ductal dilatation is seen. The pancreas and spleen are unremarkable. No adrenal mass is detected. Right kidney is unremarkable. The mass extending exophytically and laterally from the lower pole of the left kidney measures 5.2 cm AP x 5.0 cm transverse compared with 6.9 cm AP x 5.1 cm transverse on prior. Cephalocaudal measurement is 6.0 cm compared with 7.8 cm on prior. Aorta is nonaneurysmal. No central retroperitoneal or mesenteric lymphadenopathy is detected. The bowel loops are normal in caliber. There is no obstruction. No free fluid is seen. Bladder and prostate appear stable. No definite pelvic lymphadenopathy is seen. Bony structures are nonacute. IMPRESSION: [id number] CT abdomen and pelvis since the exam from 07/24/2019. Low-density liver mass as well as the left renal mass demonstrate reduction in size. There is no abdominal or pelvic lymphadenopathy detected. Note is again made of cholelithiasis. Dictated by: Dictated on workstation # [id number]
--- NOTE | 2019-10-19 16:05 | Diagnostic Imaging Report ---
INDICATION: Renal cell carcinoma. TECHNETIUM: The patient was administered 23.5 mCi technetium 99m MDP intravenously and whole-body imaging was performed after a 3 hour delay. CORRELATION is made with prior whole body bone scan from 07/24/2019. Normal uptake of activity by the axial and appendicular skeleton is noted. There is uptake by the kidneys with excretion into the urinary bladder. Area of uptake involving the right aspect of the T12 vertebral body is again noted. There is vague uptake involving the right upper anterior rib, unchanged. Degenerative changes in the feet and ankles are noted. No new focus of tracer accumulation is seen. IMPRESSION: Overall stable whole body bone scan when compared with the examination from 07/24/2019. Dictated by: Dictated on workstation # [id number]
== END ==
LOC: CARD 10:58
PROVIDERS: ATTEND Internal Medicine Hematology & Oncology
DX: C64.2 Malignant neoplasm of left kidney, except renal pelvis (principal)
CPT/HCPCS: 71260; 74178; 78306; A9503

== ENCOUNTER 2019-10-26 08:58 | Outpatient (RCR) | payer MEDICARE, OTHER ==
[2019-08-17 14:18] LABS: BASOPHILS % (AUTO) 1 % (0-10); EOSINOPHILS # (AUTO) 0.2 10^3/uL (0.0-0.3); EOSINOPHILS % (AUTO) 4 % (0-10); HEMATOCRIT 43 % (40-54); HEMOGLOBIN 14.8 G/DL (13.3-17.7); LYMPHOCYTES # (AUTO) 2.1 X 10^3 (1.0-4.0); LYMPHOCYTES % (AUTO) 36 % (12-44); MEAN CORPUSCULAR HEMOGLOBIN 27 PG (25-34); MEAN CORPUSCULAR HGB CONC 34 G/DL (32-36); MEAN CORPUSCULAR VOLUME 78 FL (80-99); MEAN PLATELET VOLUME 10.3 FL (7.4-10.4); MONOCYTES # (AUTO) 0.4 X 10^3 (0.0-1.0); MONOCYTES % (AUTO) 7 % (0-12); NEUTROPHILS # (AUTO) 3.1 X 10^3 (1.8-7.8); NEUTROPHILS % (AUTO) 52 % (42-75); PLATELET COUNT 227 10^3/uL (130-400); RED CELL DISTRIBUTION WIDTH 15.9 % (10.0-14.5); WHITE BLOOD COUNT 5.9 10^3/uL (4.3-11.0)
[2019-08-17 14:23] LABS: BILIRUBIN,URINE NEGATIVE (NEGATIVE); CLARITY,URINE CLEAR; COLOR,URINE YELLOW; GLUCOSE, URINE (UA) NEGATIVE (NEGATIVE); KETONES,URINE NEGATIVE (NEGATIVE); LEUKOCYTE ESTERASE ,URINE NEGATIVE (NEGATIVE); NITRITE,URINE NEGATIVE (NEGATIVE); PROTEIN,URINE NEGATIVE (NEGATIVE)
[2019-08-17 14:37] LABS: BACTERIA,URINE TRACE /HPF; SQUAMOUS EPITHELIAL CELL,UR RARE /HPF; WBC,URINE RARE /HPF
[2019-08-17 14:38] LABS: AMORPHOUS SEDIMENT,UR RARE AMOR URATES /LPF
[2019-08-17 14:43] LABS: ALANINE AMINOTRANSFERASE 54 U/L (0-55); ALBUMIN 3.9 GM/DL (3.2-4.5); ALKALINE PHOSPHATASE 102 U/L (40-136); BILIRUBIN,TOTAL 0.3 MG/DL (0.1-1.0); BUN/CREATININE RATIO 20; CALCIUM 9.2 MG/DL (8.5-10.1); CARBON DIOXIDE 25 MMOL/L (21-32); CHLORIDE 107 MMOL/L (98-107); CREATININE SERUM 0.95 MG/DL (0.60-1.30); GFR ESTIMATED > 60; GLUCOSE 82 MG/DL (70-105); POTASSIUM 4.6 MMOL/L (3.6-5.0); SODIUM 137 MMOL/L (135-145); TOTAL PROTEIN 7.4 GM/DL (6.4-8.2)
[2019-08-31 09:12] LABS: BASOPHILS % (AUTO) 0 % (0-10); EOSINOPHILS # (AUTO) 0.3 10^3/uL (0.0-0.3); EOSINOPHILS % (AUTO) 5 % (0-10); HEMATOCRIT 42 % (40-54); HEMOGLOBIN 14.9 G/DL (13.3-17.7); LYMPHOCYTES # (AUTO) 1.8 X 10^3 (1.0-4.0); LYMPHOCYTES % (AUTO) 32 % (12-44); MEAN CORPUSCULAR HEMOGLOBIN 28 PG (25-34); MEAN CORPUSCULAR HGB CONC 35 G/DL (32-36); MEAN CORPUSCULAR VOLUME 79 FL (80-99); MEAN PLATELET VOLUME 10.7 FL (7.4-10.4); MONOCYTES # (AUTO) 0.5 X 10^3 (0.0-1.0); MONOCYTES % (AUTO) 8 % (0-12); NEUTROPHILS # (AUTO) 3.1 X 10^3 (1.8-7.8); NEUTROPHILS % (AUTO) 55 % (42-75); PLATELET COUNT 157 10^3/uL (130-400); RED CELL DISTRIBUTION WIDTH 15.4 % (10.0-14.5); WHITE BLOOD COUNT 5.7 10^3/uL (4.3-11.0)
[2019-08-31 09:13] LABS: BILIRUBIN,URINE NEGATIVE (NEGATIVE); CLARITY,URINE CLEAR; COLOR,URINE YELLOW; GLUCOSE, URINE (UA) NEGATIVE (NEGATIVE); KETONES,URINE NEGATIVE (NEGATIVE); LEUKOCYTE ESTERASE ,URINE NEGATIVE (NEGATIVE); NITRITE,URINE NEGATIVE (NEGATIVE); PROTEIN,URINE NEGATIVE (NEGATIVE)
[2019-08-31 09:22] LABS: BACTERIA,URINE NEGATIVE /HPF; SQUAMOUS EPITHELIAL CELL,UR RARE /HPF
[2019-08-31 09:37] LABS: ALANINE AMINOTRANSFERASE 60 U/L (0-55); ALBUMIN 4.1 GM/DL (3.2-4.5); ALKALINE PHOSPHATASE 98 U/L (40-136); BILIRUBIN,TOTAL 0.6 MG/DL (0.1-1.0); BUN/CREATININE RATIO 17; CALCIUM 9.5 MG/DL (8.5-10.1); CARBON DIOXIDE 26 MMOL/L (21-32); CHLORIDE 104 MMOL/L (98-107); GFR ESTIMATED > 60; GLUCOSE 87 MG/DL (70-105); POTASSIUM 4.4 MMOL/L (3.6-5.0); SODIUM 137 MMOL/L (135-145); TOTAL PROTEIN 7.6 GM/DL (6.4-8.2)
[2019-08-31 12:17] LABS: FREE T4 (FREE THYROXINE) 0.97 NG/DL (0.70-1.48)
[2019-09-14 09:00] LABS: BASOPHILS % (AUTO) 0 % (0-10); EOSINOPHILS # (AUTO) 0.3 10^3/uL (0.0-0.3); EOSINOPHILS % (AUTO) 5 % (0-10); HEMATOCRIT 40 % (40-54); HEMOGLOBIN 14.4 G/DL (13.3-17.7); LYMPHOCYTES # (AUTO) 1.9 X 10^3 (1.0-4.0); LYMPHOCYTES % (AUTO) 36 % (12-44); MEAN CORPUSCULAR HEMOGLOBIN 28 PG (25-34); MEAN CORPUSCULAR HGB CONC 36 G/DL (32-36); MEAN CORPUSCULAR VOLUME 79 FL (80-99); MEAN PLATELET VOLUME 10.2 FL (7.4-10.4); MONOCYTES # (AUTO) 0.4 X 10^3 (0.0-1.0); MONOCYTES % (AUTO) 8 % (0-12); NEUTROPHILS # (AUTO) 2.6 X 10^3 (1.8-7.8); NEUTROPHILS % (AUTO) 50 % (42-75); PLATELET COUNT 194 10^3/uL (130-400); WHITE BLOOD COUNT 5.2 10^3/uL (4.3-11.0)
[2019-09-14 09:13] LABS: ALANINE AMINOTRANSFERASE 53 U/L (0-55); ALBUMIN 3.9 GM/DL (3.2-4.5); ALKALINE PHOSPHATASE 104 U/L (40-136); BILIRUBIN,TOTAL 0.6 MG/DL (0.1-1.0); BUN/CREATININE RATIO 16; CALCIUM 9.2 MG/DL (8.5-10.1); CARBON DIOXIDE 22 MMOL/L (21-32); CHLORIDE 105 MMOL/L (98-107); CREATININE SERUM 0.88 MG/DL (0.60-1.30); GFR ESTIMATED > 60; GLUCOSE 96 MG/DL (70-105); POTASSIUM 4.2 MMOL/L (3.6-5.0); SODIUM 137 MMOL/L (135-145); TOTAL PROTEIN 7.3 GM/DL (6.4-8.2)
[2019-09-14 09:42] LABS: BILIRUBIN,URINE NEGATIVE (NEGATIVE); CLARITY,URINE CLEAR; COLOR,URINE YELLOW; GLUCOSE, URINE (UA) NEGATIVE (NEGATIVE); KETONES,URINE NEGATIVE (NEGATIVE); LEUKOCYTE ESTERASE ,URINE NEGATIVE (NEGATIVE); NITRITE,URINE NEGATIVE (NEGATIVE); PROTEIN,URINE NEGATIVE (NEGATIVE)
[2019-09-14 09:53] LABS: BACTERIA,URINE NEGATIVE /HPF; RBC,URINE RARE /HPF
[2019-09-28 09:40] LABS: BASOPHILS % (AUTO) 0 % (0-10); EOSINOPHILS # (AUTO) 0.2 10^3/uL (0.0-0.3); EOSINOPHILS % (AUTO) 5 % (0-10); HEMATOCRIT 39 % (40-54); LYMPHOCYTES # (AUTO) 1.8 X 10^3 (1.0-4.0); LYMPHOCYTES % (AUTO) 37 % (12-44); MEAN CORPUSCULAR HEMOGLOBIN 28 PG (25-34); MEAN CORPUSCULAR HGB CONC 36 G/DL (32-36); MEAN CORPUSCULAR VOLUME 79 FL (80-99); MEAN PLATELET VOLUME 10.1 FL (7.4-10.4); MONOCYTES # (AUTO) 0.4 X 10^3 (0.0-1.0); MONOCYTES % (AUTO) 8 % (0-12); NEUTROPHILS # (AUTO) 2.5 X 10^3 (1.8-7.8); NEUTROPHILS % (AUTO) 50 % (42-75); PLATELET COUNT 191 10^3/uL (130-400); RED CELL DISTRIBUTION WIDTH 15.4 % (10.0-14.5)
[2019-09-28 09:41] LABS: BILIRUBIN,URINE NEGATIVE (NEGATIVE); CLARITY,URINE CLEAR; COLOR,URINE YELLOW; GLUCOSE, URINE (UA) NEGATIVE (NEGATIVE); KETONES,URINE NEGATIVE (NEGATIVE); LEUKOCYTE ESTERASE ,URINE NEGATIVE (NEGATIVE); NITRITE,URINE NEGATIVE (NEGATIVE); PROTEIN,URINE NEGATIVE (NEGATIVE)
[2019-09-28 09:55] LABS: BACTERIA,URINE NEGATIVE /HPF; SQUAMOUS EPITHELIAL CELL,UR RARE /HPF
[2019-09-28 10:02] LABS: ALANINE AMINOTRANSFERASE 79 U/L (0-55); ALBUMIN 4.1 GM/DL (3.2-4.5); ALKALINE PHOSPHATASE 99 U/L (40-136); BILIRUBIN,TOTAL 0.5 MG/DL (0.1-1.0); BUN/CREATININE RATIO 20; CARBON DIOXIDE 21 MMOL/L (21-32); CHLORIDE 105 MMOL/L (98-107); CREATININE SERUM 0.93 MG/DL (0.60-1.30); GFR ESTIMATED > 60; GLUCOSE 92 MG/DL (70-105); POTASSIUM 4.4 MMOL/L (3.6-5.0); SODIUM 134 MMOL/L (135-145); TOTAL PROTEIN 7.5 GM/DL (6.4-8.2)
[2019-10-12 09:51] LABS: BASOPHILS % (AUTO) 0 % (0-10); EOSINOPHILS # (AUTO) 0.2 10^3/uL (0.0-0.3); EOSINOPHILS % (AUTO) 5 % (0-10); HEMATOCRIT 38 % (40-54); HEMOGLOBIN 13.5 G/DL (13.3-17.7); LYMPHOCYTES # (AUTO) 1.6 X 10^3 (1.0-4.0); LYMPHOCYTES % (AUTO) 35 % (12-44); MEAN CORPUSCULAR HEMOGLOBIN 29 PG (25-34); MEAN CORPUSCULAR HGB CONC 36 G/DL (32-36); MEAN CORPUSCULAR VOLUME 82 FL (80-99); MEAN PLATELET VOLUME 9.6 FL (7.4-10.4); MONOCYTES # (AUTO) 0.4 X 10^3 (0.0-1.0); MONOCYTES % (AUTO) 8 % (0-12); NEUTROPHILS # (AUTO) 2.5 X 10^3 (1.8-7.8); NEUTROPHILS % (AUTO) 53 % (42-75); PLATELET COUNT 178 10^3/uL (130-400); RED CELL DISTRIBUTION WIDTH 15.8 % (10.0-14.5); WHITE BLOOD COUNT 4.6 10^3/uL (4.3-11.0)
[2019-10-12 10:14] LABS: ALANINE AMINOTRANSFERASE 63 U/L (0-55); ALKALINE PHOSPHATASE 90 U/L (40-136); BILIRUBIN,TOTAL 0.5 MG/DL (0.1-1.0); BUN/CREATININE RATIO 16; CALCIUM 8.8 MG/DL (8.5-10.1); CARBON DIOXIDE 22 MMOL/L (21-32); CHLORIDE 106 MMOL/L (98-107); CREATININE SERUM 0.88 MG/DL (0.60-1.30); GFR ESTIMATED > 60; GLUCOSE 89 MG/DL (70-105); POTASSIUM 4.3 MMOL/L (3.6-5.0); SODIUM 137 MMOL/L (135-145); TOTAL PROTEIN 7.1 GM/DL (6.4-8.2)
[2019-10-12 10:52] LABS: BILIRUBIN,URINE NEGATIVE (NEGATIVE); CLARITY,URINE CLEAR; COLOR,URINE YELLOW; GLUCOSE, URINE (UA) NEGATIVE (NEGATIVE); KETONES,URINE NEGATIVE (NEGATIVE); LEUKOCYTE ESTERASE ,URINE NEGATIVE (NEGATIVE); NITRITE,URINE NEGATIVE (NEGATIVE); PROTEIN,URINE NEGATIVE (NEGATIVE)
[2019-10-12 10:59] LABS: BACTERIA,URINE NEGATIVE /HPF; SQUAMOUS EPITHELIAL CELL,UR RARE /HPF; WBC,URINE RARE /HPF
[~2019-10-26 08:58] MED LIST changes: -BARIUM SUSPENSION 2.1% (VANILLA SILQ) 450 ML PO ONE; -CATHETER FLUSH 10 ML SYR IV PRN; -HOLD METFORMIN - RECEIVED CONTRAST 20 ML VIAL IV SCH; -IOHEXOL 350 MG/ML 100 ML (OMNIPAQUE 350) VIAL IV ONE; +NIVOLUMAB 480 MG in NS (IVPB) CANCER CENTER 100 ML IV SCH; -NS 100 ML (IVPB) BAG IV ONE; +NS IV 500 ML (CANCER CENTER) 500 ML IV SCH
[2019-10-26 09:22] LABS: BASOPHILS % (AUTO) 0 % (0-10); EOSINOPHILS # (AUTO) 0.1 10^3/uL (0.0-0.3); EOSINOPHILS % (AUTO) 3 % (0-10); HEMATOCRIT 36 % (40-54); HEMOGLOBIN 12.8 G/DL (13.3-17.7); LYMPHOCYTES # (AUTO) 1.6 X 10^3 (1.0-4.0); LYMPHOCYTES % (AUTO) 34 % (12-44); MEAN CORPUSCULAR HEMOGLOBIN 30 PG (25-34); MEAN CORPUSCULAR HGB CONC 36 G/DL (32-36); MEAN CORPUSCULAR VOLUME 84 FL (80-99); MONOCYTES # (AUTO) 0.5 X 10^3 (0.0-1.0); MONOCYTES % (AUTO) 10 % (0-12); NEUTROPHILS # (AUTO) 2.5 X 10^3 (1.8-7.8); NEUTROPHILS % (AUTO) 54 % (42-75); PLATELET COUNT 199 10^3/uL (130-400); RED CELL DISTRIBUTION WIDTH 16.3 % (10.0-14.5); WHITE BLOOD COUNT 4.6 10^3/uL (4.3-11.0)
[2019-10-26 09:23] LABS: BILIRUBIN,URINE NEGATIVE (NEGATIVE); CLARITY,URINE CLEAR; COLOR,URINE YELLOW; GLUCOSE, URINE (UA) NEGATIVE (NEGATIVE); KETONES,URINE NEGATIVE (NEGATIVE); LEUKOCYTE ESTERASE ,URINE NEGATIVE (NEGATIVE); NITRITE,URINE NEGATIVE (NEGATIVE); PROTEIN,URINE NEGATIVE (NEGATIVE)
[2019-10-26 09:31] LABS: BACTERIA,URINE NEGATIVE /HPF; WBC,URINE RARE /HPF
[2019-10-26 09:43] LABS: ALANINE AMINOTRANSFERASE 40 U/L (0-55); ALBUMIN 3.9 GM/DL (3.2-4.5); ALKALINE PHOSPHATASE 73 U/L (40-136); BILIRUBIN,TOTAL 0.5 MG/DL (0.1-1.0); BUN/CREATININE RATIO 22; CALCIUM 8.9 MG/DL (8.5-10.1); CARBON DIOXIDE 24 MMOL/L (21-32); CHLORIDE 106 MMOL/L (98-107); CREATININE SERUM 0.93 MG/DL (0.60-1.30); GFR ESTIMATED > 60; GLUCOSE 92 MG/DL (70-105); POTASSIUM 4.4 MMOL/L (3.6-5.0); SODIUM 136 MMOL/L (135-145); TOTAL PROTEIN 7.2 GM/DL (6.4-8.2)
== END 2019-11-15 | disposition home or self-care (01) ==
LOC: ONC 08:58
PROVIDERS: ATTEND Internal Medicine Hematology & Oncology
DX: C64.2 Malignant neoplasm of left kidney, except renal pelvis (principal); C79.51 Secondary malignant neoplasm of bone; C78.02 Secondary malignant neoplasm of left lung; C78.7 Secondary malignant neoplasm of liver and intrahepatic bile duct; Z98.890 Other specified postprocedural states; Z79.899 Other long term (current) drug therapy
CPT/HCPCS: 80053; 81000; 84443; 85025; G0463; 36591; 84439; 93005; 96413; 99213

== ENCOUNTER → 2020-01-09 | Outpatient (CLI) | payer MEDICARE, OTHER ==
[~2020-01-09] MED LIST changes: +HOLD METFORMIN - RECEIVED CONTRAST 20 ML VIAL IV SCH; +IOHEXOL 350 MG/ML 100 ML (OMNIPAQUE 350) VIAL IV ONE; -NIVOLUMAB 480 MG in NS (IVPB) CANCER CENTER 100 ML IV SCH; +NS 100 ML (IVPB) BAG IV ONE; -NS IV 500 ML (CANCER CENTER) 500 ML IV SCH; -PANT40TA3 PO; +PANT40TA52 PO
--- NOTE | 2020-01-09 12:19 | Diagnostic Imaging Report ---
PROCEDURE: CT chest with contrast. CT abdomen and pelvis with and without contrast. TECHNIQUE: Pre and post intravenous contrast axial imaging of the abdomen and pelvis and post contrast axial imaging of the chest were performed. Auto Exposure Controls were utilized during the CT exam to meet ALARA standards for radiation dose reduction. INDICATION: Renal carcinoma, followup. COMPARISON: CT from 10/19/2019. FINDINGS: CT CHEST: No axillary lymphadenopathy is identified. A right paratracheal lymph node at the level of the aortic arch is stable at 8 mm x 11 mm compared with 9 mm x 13 mm on the prior exam. No new mediastinal mass is seen. The ervin are unremarkable. A mass at the right cardiophrenic angle measures 3.6 x 2.3 cm compared with 4.0 x 2.5 cm. The small right-sided effusion is unchanged. No pericardial effusion is identified. A marker lesion at the right lung apex is stable at 4 mm. More inferiorly in the right upper lobe, a nodule measures 5 to 6 mm, stable. No new or enlarging pulmonary nodules are detected. A lesion involving the anterior right 3rd rib is stable. IMPRESSION: Overall stable CT chest when compared with the exam from 10/19/2019. CT ABDOMEN AND PELVIS: Numerous circumscribed hepatic low-attenuation lesions are again noted, consistent with cysts. The noncystic low-density lesion in the inferior right lobe measures 14 mm compared with 16 mm on the prior exam. No new or enlarging lesion is identified. The gallbladder contains multiple stones. No biliary ductal dilatation is seen. The pancreas and spleen are unremarkable. No adrenal mass is detected. A left renal mass measures 5.0 x 4.6 cm compared with 5.2 x 5.0 cm on the prior exam. The right kidney is unremarkable. The aorta is nonaneurysmal. No central retroperitoneal or mesenteric lymphadenopathy is detected. The small and large bowel loops are of normal caliber. There is no obstruction. There is no free fluid or fluid collection. The bladder is thick walled but incompletely distended. The prostate is normal in size. No pelvic lymphadenopathy is identified. The bony structures appear stable. IMPRESSION: Slight decrease in size of a low-density lesion in the right lobe of the liver since the prior examination from 10/19/2019. No abdominal or pelvic lymphadenopathy is detected. There has also been a decrease in the size of a left renal mass. Dictated by: Dictated on workstation # [id number]
== END ==
LOC: RAD 11:11
PROVIDERS: ATTEND Internal Medicine Hematology & Oncology
DX: C64.2 Malignant neoplasm of left kidney, except renal pelvis (principal)
CPT/HCPCS: 71260; 74178

== ENCOUNTER → 2020-01-11 | Outpatient (CLI) | payer MEDICARE, OTHER ==
[~2020-01-11] MED LIST changes: -HOLD METFORMIN - RECEIVED CONTRAST 20 ML VIAL IV SCH; -IOHEXOL 350 MG/ML 100 ML (OMNIPAQUE 350) VIAL IV ONE; -NS 100 ML (IVPB) BAG IV ONE
--- NOTE | 2020-01-11 14:56 | Diagnostic Imaging Report ---
Whole body bone scan. Indication: Rectal carcinoma This study was performed following administration of 25.6 mCi of 90 technetium MDP. Anterior posterior whole body images as well as spot lateral views of the thorax were obtained. The previous nuclear medicine bone scan of 10/19/2019 noted uptake in the right lateral aspect of the T12 vertebral body. There is also a small area of slight increased activity along the lateral aspect of the right 3rd rib. Those findings are again evident on this study and the uptake in each of these areas is somewhat less conspicuous than on the prior exam. No new area of abnormal uptake has developed. As noted on the prior exam there are degenerative changes involving the shoulder and knee joints. There is also excretion of the radiotracer by both kidneys. Impression: The appearance of the bone scan has improved since the prior exam as the abnormal uptake involving T12 and the right 3rd rib is not as intense as on the prior exam. There is no new area of abnormal uptake to suggest progressive neoplastic disease. Dictated by: Dictated on workstation # [id number]
== END ==
LOC: CARD 11:00
PROVIDERS: ATTEND Internal Medicine Hematology & Oncology
DX: C64.2 Malignant neoplasm of left kidney, except renal pelvis (principal); C20 Malignant neoplasm of rectum
CPT/HCPCS: 78306; A9503

== ENCOUNTER 2020-02-15 12:55 | Outpatient (RCR) | payer MEDICARE, OTHER ==
[2019-11-23 09:27] LABS: BILIRUBIN,URINE NEGATIVE (NEGATIVE); CLARITY,URINE CLEAR; COLOR,URINE YELLOW; GLUCOSE, URINE (UA) NEGATIVE (NEGATIVE); KETONES,URINE NEGATIVE (NEGATIVE); LEUKOCYTE ESTERASE ,URINE NEGATIVE (NEGATIVE); NITRITE,URINE NEGATIVE (NEGATIVE); PROTEIN,URINE NEGATIVE (NEGATIVE)
[2019-11-23 09:34] LABS: BASOPHILS % (AUTO) 1 % (0-10); EOSINOPHILS # (AUTO) 0.1 10^3/uL (0.0-0.3); EOSINOPHILS % (AUTO) 3 % (0-10); HEMATOCRIT 38 % (40-54); HEMOGLOBIN 13.7 G/DL (13.3-17.7); LYMPHOCYTES # (AUTO) 1.3 X 10^3 (1.0-4.0); LYMPHOCYTES % (AUTO) 31 % (12-44); MEAN CORPUSCULAR HEMOGLOBIN 30 PG (25-34); MEAN CORPUSCULAR HGB CONC 36 G/DL (32-36); MEAN CORPUSCULAR VOLUME 85 FL (80-99); MEAN PLATELET VOLUME 9.7 FL (7.4-10.4); MONOCYTES # (AUTO) 0.5 X 10^3 (0.0-1.0); MONOCYTES % (AUTO) 10 % (0-12); NEUTROPHILS # (AUTO) 2.4 X 10^3 (1.8-7.8); NEUTROPHILS % (AUTO) 56 % (42-75); PLATELET COUNT 184 10^3/uL (130-400); WHITE BLOOD COUNT 4.3 10^3/uL (4.3-11.0)
[2019-11-23 09:34] LABS: BACTERIA,URINE NEGATIVE /HPF; RBC,URINE RARE /HPF
[2019-11-23 09:52] LABS: ALANINE AMINOTRANSFERASE 46 U/L (0-55); ALKALINE PHOSPHATASE 78 U/L (40-136); BILIRUBIN,TOTAL 0.5 MG/DL (0.1-1.0); BUN/CREATININE RATIO 17; CALCIUM 8.9 MG/DL (8.5-10.1); CARBON DIOXIDE 27 MMOL/L (21-32); CHLORIDE 105 MMOL/L (98-107); GFR ESTIMATED > 60; GLUCOSE 93 MG/DL (70-105); POTASSIUM 4.4 MMOL/L (3.6-5.0); SODIUM 137 MMOL/L (135-145); TOTAL PROTEIN 7.3 GM/DL (6.4-8.2)
[2019-12-21 09:52] LABS: BASOPHILS % (AUTO) 1 % (0-10); EOSINOPHILS # (AUTO) 0.1 10^3/uL (0.0-0.3); EOSINOPHILS % (AUTO) 2 % (0-10); HEMATOCRIT 39 % (40-54); HEMOGLOBIN 13.7 g/dL (13.3-17.7); LYMPHOCYTES # (AUTO) 1.7 10^3/uL (1.0-4.0); LYMPHOCYTES % (AUTO) 32 % (12-44); MEAN CORPUSCULAR HEMOGLOBIN 31 pg (25-34); MEAN CORPUSCULAR HGB CONC 35 g/dL (32-36); MEAN CORPUSCULAR VOLUME 89 fL (80-99); MEAN PLATELET VOLUME 10.2 fL (9.0-12.2); MONOCYTES # (AUTO) 0.4 10^3/uL (0.0-1.0); MONOCYTES % (AUTO) 8 % (0-12); NEUTROPHILS % (AUTO) 57 % (42-75); PLATELET COUNT 197 10^3/uL (130-400); WHITE BLOOD COUNT 5.3 10^3/uL (4.3-11.0)
[2019-12-21 10:09] LABS: ALANINE AMINOTRANSFERASE 41 U/L (0-55); ALBUMIN 4.1 GM/DL (3.2-4.5); ALKALINE PHOSPHATASE 80 U/L (40-136); BILIRUBIN,TOTAL 0.5 MG/DL (0.1-1.0); BUN/CREATININE RATIO 15; CALCIUM 9.1 MG/DL (8.5-10.1); CARBON DIOXIDE 21 MMOL/L (21-32); CHLORIDE 103 MMOL/L (98-107); CREATININE SERUM 0.99 MG/DL (0.60-1.30); GFR ESTIMATED > 60; GLUCOSE 92 MG/DL (70-105); POTASSIUM 4.4 MMOL/L (3.6-5.0); SODIUM 136 MMOL/L (135-145); TOTAL PROTEIN 7.1 GM/DL (6.4-8.2)
[2019-12-21 10:30] LABS: BILIRUBIN,URINE NEGATIVE (NEGATIVE); CLARITY,URINE CLEAR; COLOR,URINE YELLOW; GLUCOSE, URINE (UA) NEGATIVE (NEGATIVE); KETONES,URINE NEGATIVE (NEGATIVE); LEUKOCYTE ESTERASE ,URINE NEGATIVE (NEGATIVE); NITRITE,URINE NEGATIVE (NEGATIVE); PH,URINE 6.5 (5-9); PROTEIN,URINE NEGATIVE (NEGATIVE)
[2019-12-21 10:38] LABS: BACTERIA,URINE NEGATIVE /HPF; RBC,URINE RARE /HPF; SQUAMOUS EPITHELIAL CELL,UR RARE /HPF
[2020-01-18 13:26] LABS: BASOPHILS % (AUTO) 0 % (0-10); EOSINOPHILS # (AUTO) 0.1 10^3/uL (0.0-0.3); EOSINOPHILS % (AUTO) 3 % (0-10); HEMATOCRIT 39 % (40-54); HEMOGLOBIN 13.8 g/dL (13.3-17.7); LYMPHOCYTES # (AUTO) 1.3 10^3/uL (1.0-4.0); LYMPHOCYTES % (AUTO) 27 % (12-44); MEAN CORPUSCULAR HEMOGLOBIN 31 pg (25-34); MEAN CORPUSCULAR HGB CONC 35 g/dL (32-36); MEAN CORPUSCULAR VOLUME 89 fL (80-99); MEAN PLATELET VOLUME 10.1 fL (9.0-12.2); MONOCYTES # (AUTO) 0.4 10^3/uL (0.0-1.0); MONOCYTES % (AUTO) 9 % (0-12); NEUTROPHILS # (AUTO) 2.9 10^3/uL (1.8-7.8); NEUTROPHILS % (AUTO) 61 % (42-75); PLATELET COUNT 173 10^3/uL (130-400); WHITE BLOOD COUNT 4.7 10^3/uL (4.3-11.0)
[2020-01-18 13:48] LABS: ALANINE AMINOTRANSFERASE 41 U/L (0-55); ALKALINE PHOSPHATASE 83 U/L (40-136); BILIRUBIN,TOTAL 0.4 MG/DL (0.1-1.0); BUN/CREATININE RATIO 15; CALCIUM 9.1 MG/DL (8.5-10.1); CARBON DIOXIDE 23 MMOL/L (21-32); CHLORIDE 106 MMOL/L (98-107); CREATININE SERUM 0.99 MG/DL (0.60-1.30); GFR ESTIMATED > 60; GLUCOSE 81 MG/DL (70-105); POTASSIUM 4.2 MMOL/L (3.6-5.0); SODIUM 137 MMOL/L (135-145); TOTAL PROTEIN 7.2 GM/DL (6.4-8.2)
[2020-01-18 14:04] LABS: BILIRUBIN,URINE NEGATIVE (NEGATIVE); CLARITY,URINE CLEAR; COLOR,URINE YELLOW; GLUCOSE, URINE (UA) NEGATIVE (NEGATIVE); KETONES,URINE NEGATIVE (NEGATIVE); LEUKOCYTE ESTERASE ,URINE NEGATIVE (NEGATIVE); NITRITE,URINE NEGATIVE (NEGATIVE); PROTEIN,URINE NEGATIVE (NEGATIVE)
[2020-01-18 14:23] LABS: BACTERIA,URINE NEGATIVE /HPF
[~2020-02-15 12:55] MED LIST changes: +NIVOLUMAB 480 MG in NS (IVPB) CANCER CENTER 100 ML IV SCH; +NS IV 500 ML (CANCER CENTER) 500 ML IV SCH
[2020-02-15 13:37] LABS: BASOPHILS % (AUTO) 1 % (0-10); EOSINOPHILS # (AUTO) 0.1 10^3/uL (0.0-0.3); EOSINOPHILS % (AUTO) 3 % (0-10); HEMATOCRIT 40 % (40-54); LYMPHOCYTES # (AUTO) 1.6 10^3/uL (1.0-4.0); LYMPHOCYTES % (AUTO) 34 % (12-44); MEAN CORPUSCULAR HEMOGLOBIN 31 pg (25-34); MEAN CORPUSCULAR HGB CONC 35 g/dL (32-36); MEAN CORPUSCULAR VOLUME 87 fL (80-99); MEAN PLATELET VOLUME 10.1 fL (9.0-12.2); MONOCYTES # (AUTO) 0.4 10^3/uL (0.0-1.0); MONOCYTES % (AUTO) 9 % (0-12); NEUTROPHILS # (AUTO) 2.6 10^3/uL (1.8-7.8); NEUTROPHILS % (AUTO) 54 % (42-75); PLATELET COUNT 186 10^3/uL (130-400); WHITE BLOOD COUNT 4.8 10^3/uL (4.3-11.0)
[2020-02-15 13:57] LABS: ALANINE AMINOTRANSFERASE 39 U/L (0-55); ALBUMIN 3.9 GM/DL (3.2-4.5); ALKALINE PHOSPHATASE 76 U/L (40-136); BILIRUBIN,TOTAL 0.4 MG/DL (0.1-1.0); BUN/CREATININE RATIO 18; CALCIUM 8.8 MG/DL (8.5-10.1); CARBON DIOXIDE 23 MMOL/L (21-32); CHLORIDE 106 MMOL/L (98-107); CREATININE SERUM 0.94 MG/DL (0.60-1.30); GFR ESTIMATED > 60; GLUCOSE 87 MG/DL (70-105); POTASSIUM 4.2 MMOL/L (3.6-5.0); SODIUM 137 MMOL/L (135-145)
[2020-02-15 14:06] LABS: BILIRUBIN,URINE NEGATIVE (NEGATIVE); CLARITY,URINE CLEAR; COLOR,URINE YELLOW; GLUCOSE, URINE (UA) NEGATIVE (NEGATIVE); KETONES,URINE NEGATIVE (NEGATIVE); LEUKOCYTE ESTERASE ,URINE NEGATIVE (NEGATIVE); NITRITE,URINE NEGATIVE (NEGATIVE); PROTEIN,URINE NEGATIVE (NEGATIVE)
[2020-02-15 14:13] LABS: BACTERIA,URINE NEGATIVE /HPF
== END 2020-02-21 | disposition home or self-care (01) ==
LOC: ONC 12:55
PROVIDERS: ATTEND Internal Medicine Hematology & Oncology
DX: Z51.11 Encounter for antineoplastic chemotherapy (principal); C64.2 Malignant neoplasm of left kidney, except renal pelvis; C79.51 Secondary malignant neoplasm of bone; C78.02 Secondary malignant neoplasm of left lung; C78.7 Secondary malignant neoplasm of liver and intrahepatic bile duct; I10 Essential (primary) hypertension; E03.9 Hypothyroidism, unspecified; Z98.890 Other specified postprocedural states
CPT/HCPCS: 80053; 81000; 84443; 85025; 93005; 96413; G0463; 36591

== ENCOUNTER 2020-03-14 09:55 | Outpatient (RCR) | payer MEDICARE, OTHER ==
[2020-03-14 10:18] LABS: BILIRUBIN,URINE NEGATIVE (NEGATIVE); CLARITY,URINE CLEAR; COLOR,URINE YELLOW; GLUCOSE, URINE (UA) NEGATIVE (NEGATIVE); KETONES,URINE NEGATIVE (NEGATIVE); LEUKOCYTE ESTERASE ,URINE NEGATIVE (NEGATIVE); NITRITE,URINE NEGATIVE (NEGATIVE); PROTEIN,URINE NEGATIVE (NEGATIVE)
[2020-03-14 10:20] LABS: BASOPHILS % (AUTO) 0 % (0-10); EOSINOPHILS # (AUTO) 0.1 10^3/uL (0.0-0.3); EOSINOPHILS % (AUTO) 3 % (0-10); HEMATOCRIT 40 % (40-54); HEMOGLOBIN 13.9 g/dL (13.3-17.7); LYMPHOCYTES # (AUTO) 1.5 10^3/uL (1.0-4.0); LYMPHOCYTES % (AUTO) 32 % (12-44); MEAN CORPUSCULAR HEMOGLOBIN 31 pg (25-34); MEAN CORPUSCULAR HGB CONC 35 g/dL (32-36); MEAN CORPUSCULAR VOLUME 88 fL (80-99); MEAN PLATELET VOLUME 10.6 fL (9.0-12.2); MONOCYTES # (AUTO) 0.4 10^3/uL (0.0-1.0); MONOCYTES % (AUTO) 8 % (0-12); NEUTROPHILS # (AUTO) 2.7 10^3/uL (1.8-7.8); NEUTROPHILS % (AUTO) 57 % (42-75); PLATELET COUNT 184 10^3/uL (130-400); WHITE BLOOD COUNT 4.7 10^3/uL (4.3-11.0)
[2020-03-14 10:31] LABS: BACTERIA,URINE NEGATIVE /HPF
[2020-03-14 10:44] LABS: ALANINE AMINOTRANSFERASE 40 U/L (0-55); ALBUMIN 3.9 GM/DL (3.2-4.5); ALKALINE PHOSPHATASE 71 U/L (40-136); BILIRUBIN,TOTAL 0.4 MG/DL (0.1-1.0); BUN/CREATININE RATIO 22; CALCIUM 8.8 MG/DL (8.5-10.1); CARBON DIOXIDE 25 MMOL/L (21-32); CHLORIDE 105 MMOL/L (98-107); CREATININE SERUM 0.89 MG/DL (0.60-1.30); GFR ESTIMATED > 60; GLUCOSE 91 MG/DL (70-105); POTASSIUM 4.3 MMOL/L (3.6-5.0); SODIUM 135 MMOL/L (135-145)
== END 2020-03-29 09:02 | disposition home or self-care (01) ==
LOC: ONC 09:55
PROVIDERS: ATTEND Internal Medicine Hematology & Oncology
DX: Z51.11 Encounter for antineoplastic chemotherapy (principal); C64.2 Malignant neoplasm of left kidney, except renal pelvis; C79.51 Secondary malignant neoplasm of bone; C78.02 Secondary malignant neoplasm of left lung; C78.7 Secondary malignant neoplasm of liver and intrahepatic bile duct; I10 Essential (primary) hypertension; E03.9 Hypothyroidism, unspecified; Z98.890 Other specified postprocedural states
CPT/HCPCS: 80053; 81000; 84443; 85025; 93005; 96413; G0463; 36591

== ENCOUNTER → 2020-04-04 | Outpatient (CLI) | payer MEDICARE, OTHER ==
[~2020-04-04] MED LIST changes: +CATHETER FLUSH 10 ML SYR IV PRN; -ESCI20TA45 PO; +ESCI20TA56 PO; +HOLD METFORMIN - RECEIVED CONTRAST 20 ML VIAL IV SCH; +IOHEXOL 350 MG/ML 100 ML (OMNIPAQUE 350) VIAL IV ONE; -NIVOLUMAB 480 MG in NS (IVPB) CANCER CENTER 100 ML IV SCH; +NS 100 ML (IVPB) BAG IV ONE; -NS IV 500 ML (CANCER CENTER) 500 ML IV SCH
--- NOTE | 2020-04-04 12:41 | Diagnostic Imaging Report ---
PROCEDURE: CT chest with contrast, CT abdomen and pelvis with and without contrast. TECHNIQUE: Pre and post intravenous contrast axial imaging of the abdomen and pelvis and post contrast axial imaging of the chest were performed. Auto Exposure Controls were utilized during the CT exam to meet ALARA standards for radiation dose reduction. INDICATION: Renal cancer. Comparison is made with a prior CT from 01/09/2020. CT CHEST: No axillary lymphadenopathy is identified. Previously noted right paratracheal lymph node at the level of aortic arch measures approximately 12 mm x 8 mm compared with 11 mm x 8 mm. No hilar lymphadenopathy is detected. Previously noted right cardiophrenic angle mass measures 3.9 x 2.2 cm compared with 3.6 x 2.3 cm. Previously noted right paraesophageal nodule again is not visualized. There is a small right effusion. No pericardial effusion is seen. Tiny nodule right lung apex stable at 4 mm. Tiny nodule more inferiorly in the right upper lobe is stable at 5 mm. No new pulmonary nodules are identified. Bony structures appear stable. IMPRESSION: Stable CT chest since exam from 01/09/2020. There continues to be a small right effusion. The right cardiophrenic angle mass and right paratracheal lymph node are stable. No new abnormality is detected. CT abdomen and pelvis: Liver again demonstrates numerous low-attenuation lesions suggestive of cysts. Low-attenuation lesion near the periphery of the right lobe measures 10 mm compared with 14 mm. No new liver lesion is identified. Gallbladder contains multiple stones. Pancreas and spleen are unremarkable. No adrenal mass is detected. Low-density left renal mass measures 4.7 cm AP by 4.5 cm transverse compared with 5.0 cm AP by 4.6 cm transverse on prior. The cephalocaudal measurement is 5.9 cm compared with 5.9 cm on prior. Aorta is nonaneurysmal. No central retroperitoneal or mesenteric lymphadenopathy is seen. The small and large bowel loops are normal caliber. There is no obstruction. There is no free fluid or fluid collection. No pelvic lymphadenopathy is identified. Bladder and prostate are unremarkable. IMPRESSION: Stable CT abdomen and pelvis since exam from 01/09/2020. Dictated by: Dictated on workstation # [id number]
== END ==
LOC: RAD 11:15
PROVIDERS: ATTEND Internal Medicine Hematology & Oncology
DX: C64.9 Malignant neoplasm of unspecified kidney, except renal pelvis (principal); C79.51 Secondary malignant neoplasm of bone; C78.7 Secondary malignant neoplasm of liver and intrahepatic bile duct
CPT/HCPCS: 71260; 74178

== ENCOUNTER → 2020-04-10 | Outpatient (CLI) | payer MEDICARE, OTHER ==
[~2020-04-10] MED LIST changes: -CATHETER FLUSH 10 ML SYR IV PRN; -HOLD METFORMIN - RECEIVED CONTRAST 20 ML VIAL IV SCH; -IOHEXOL 350 MG/ML 100 ML (OMNIPAQUE 350) VIAL IV ONE; -NS 100 ML (IVPB) BAG IV ONE
--- NOTE | 2020-04-10 14:54 | Diagnostic Imaging Report ---
INDICATION: Renal cell carcinoma. EXAMINATION: Patient was administered 25.6 mCi technetium 99m MDP intravenously and whole-body imaging was performed after a 3 hour delay. COMPARISON: Correlation is made with prior whole-body bone scan from 01/11/2020. FINDINGS: Abnormal uptake of activity by the axial and appendicular skeleton is noted. There is normal uptake of activity by the kidneys with excretion into the urinary bladder. Mild uptake at the level T12 is unchanged. Vague uptake at the right 3rd rib is again noted, unchanged. No new focus of tracer accumulation is identified. IMPRESSION: Stable whole body bone scan since exam from 01/11/2020. Dictated by: Dictated on workstation # [id number]
== END ==
LOC: CARD 09:56
PROVIDERS: ATTEND Internal Medicine Hematology & Oncology
DX: C64.9 Malignant neoplasm of unspecified kidney, except renal pelvis (principal); C79.51 Secondary malignant neoplasm of bone
CPT/HCPCS: 78306; A9503

== ENCOUNTER → 2020-06-05 | Outpatient (CLI) | payer MEDICARE, OTHER ==
[~2020-06-05] MED LIST changes: +ESCI20TA39 PO; -ESCI20TA56 PO
[2020-06-05 10:27] LABS: BASOPHILS % (AUTO) 0 % (0-10); EOSINOPHILS # (AUTO) 0.1 10^3/uL (0.0-0.3); EOSINOPHILS % (AUTO) 3 % (0-10); HEMATOCRIT 40 % (40-54); HEMOGLOBIN 14.1 g/dL (13.3-17.7); LYMPHOCYTES # (AUTO) 1.4 10^3/uL (1.0-4.0); LYMPHOCYTES % (AUTO) 31 % (12-44); MEAN CORPUSCULAR HEMOGLOBIN 31 pg (25-34); MEAN CORPUSCULAR HGB CONC 35 g/dL (32-36); MEAN CORPUSCULAR VOLUME 87 fL (80-99); MEAN PLATELET VOLUME 10.1 fL (9.0-12.2); MONOCYTES # (AUTO) 0.3 10^3/uL (0.0-1.0); MONOCYTES % (AUTO) 7 % (0-12); NEUTROPHILS # (AUTO) 2.7 10^3/uL (1.8-7.8); NEUTROPHILS % (AUTO) 58 % (42-75); PLATELET COUNT 189 10^3/uL (130-400); WHITE BLOOD COUNT 4.6 10^3/uL (4.3-11.0)
[2020-06-05 10:42] LABS: ALANINE AMINOTRANSFERASE 40 U/L (0-55); ALBUMIN 3.9 GM/DL (3.2-4.5); ALKALINE PHOSPHATASE 68 U/L (40-136); BILIRUBIN,TOTAL 0.5 MG/DL (0.1-1.0); BUN/CREATININE RATIO 15; CARBON DIOXIDE 23 MMOL/L (21-32); CHLORIDE 107 MMOL/L (98-107); CHOLESTEROL 206 MG/DL (< 200); CREATININE SERUM 0.96 MG/DL (0.60-1.30); GFR ESTIMATED > 60; GLUCOSE 92 MG/DL (70-105); HDL CHOLESTEROL 40 MG/DL (40-60); POTASSIUM 4.5 MMOL/L (3.6-5.0); SODIUM 138 MMOL/L (135-145); TRIGLYCERIDES 107 MG/DL (<150); VLDL CHOLESTEROL 21 MG/DL (5-40)
== END ==
LOC: LAB 10:00
PROVIDERS: ATTEND Family Medicine
DX: I10 Essential (primary) hypertension (principal); C64.2 Malignant neoplasm of left kidney, except renal pelvis; E78.5 Hyperlipidemia, unspecified; E03.9 Hypothyroidism, unspecified; E55.9 Vitamin D deficiency, unspecified
CPT/HCPCS: 36415; 80053; 80061; 82306; 84443; 85025

== ENCOUNTER → 2020-06-28 | Outpatient (CLI) | payer MEDICARE, OTHER ==
[~2020-06-28] MED LIST changes: +CATHETER FLUSH 10 ML SYR IV PRN; +HOLD METFORMIN - RECEIVED CONTRAST 20 ML VIAL IV SCH; +IOHEXOL 350 MG/ML 100 ML (OMNIPAQUE 350) VIAL IV ONE; +NS 100 ML (IVPB) BAG IV ONE
[2020-06-28] MEDS: CATHETER FLUSH 10 ML SYR IV PRN ×2 (11:04→11:37)
--- NOTE | 2020-06-28 12:38 | Diagnostic Imaging Report ---
PROCEDURE: CT chest with contrast, CT abdomen and pelvis with and without contrast. TECHNIQUE: Pre and post intravenous contrast axial imaging of the abdomen and pelvis and post contrast axial imaging of the chest were performed. Auto Exposure Controls were utilized during the CT exam to meet ALARA standards for radiation dose reduction. INDICATION: Renal cell carcinoma, followup. Correlation is made with prior CT from 04/04/2020. CT CHEST: No axillary lymphadenopathy is identified. Low right paratracheal lymph node previously described measures 11 mm x 8 mm, stable. No hilar lymphadenopathy is seen. No paraesophageal nodule is seen. There is no pericardial fluid. There is a small right pleural effusion, similar to prior exam. A right apical nodule stable at 3 to 4 mm. Nodule more inferiorly in the right upper lobe is stable at 4 to 5 mm. No new pulmonary nodules are seen. A right cardiophrenic mass is approximately 3.8 x 2.0 cm compared with 3.9 x 2.2 cm. IMPRESSION: Overall stable CT chest when compared with exam from 04/04/2020. No new abnormality is detected. CT ABDOMEN AND PELVIS: The liver demonstrate low-attenuation lesions consistent with cysts. The low-density lesion in the periphery of the inferior right lobe of the liver is stable at 10 mm. No new liver mass is detected. Gallbladder contains stones. Pancreas and spleen are unremarkable. No adrenal mass is detected. Right kidney is unremarkable. Left renal low-attenuation lesion measures 4.7 cm AP by 4.8 cm transverse by 5.57 cm cephalocaudal compared with 4.7 cm AP by 4.5 cm transverse by 5.9 cm cephalocaudal on prior. The aorta remains nonaneurysmal. No central retroperitoneal or mesenteric lymphadenopathy is seen. Small and large bowel loops are normal caliber. There is no ascites. Bladder and prostate are unremarkable. No pelvic lymphadenopathy is seen. Bony structures are nonacute. IMPRESSION: Stable CT abdomen and pelvis when compared to exam from 04/04/2020. Dictated by: Dictated on workstation # [id number]
--- NOTE | 2020-06-28 14:43 | Diagnostic Imaging Report ---
INDICATION: Kidney neoplasm. TECHNIQUE: Patient was administered 26.0 mCi technetium 99m MDP intravenously and whole-body imaging was performed after a three-hour delay. COMPARISON: Correlation is made with prior whole body bone scan from 04/10/2020. Normal uptake of the axial and appendicular skeleton is noted. There is normal uptake within the kidneys with excretion into the urinary bladder. Mild uptake at the level of T12 is noted. Vague uptake of the right 3rd rib is barely seen on today's study. No new foci of trace accumulation is seen. IMPRESSION: There is continued stable whole body bone scan when compared to exam from 04/10/2020. Dictated by: Dictated on workstation # [id number]
== END ==
LOC: CARD 10:59
PROVIDERS: ATTEND Internal Medicine Hematology & Oncology
DX: C64.9 Malignant neoplasm of unspecified kidney, except renal pelvis (principal)
CPT/HCPCS: 71260; 74178; 78306; A9503

== ENCOUNTER 2020-07-04 09:17 | Outpatient (RCR) | payer MEDICARE, OTHER ==
[2020-04-10 11:20] LABS: BASOPHILS % (AUTO) 1 % (0-10); EOSINOPHILS # (AUTO) 0.1 10^3/uL (0.0-0.3); EOSINOPHILS % (AUTO) 3 % (0-10); HEMATOCRIT 40 % (40-54); HEMOGLOBIN 13.8 g/dL (13.3-17.7); LYMPHOCYTES # (AUTO) 1.6 10^3/uL (1.0-4.0); LYMPHOCYTES % (AUTO) 35 % (12-44); MEAN CORPUSCULAR HEMOGLOBIN 31 pg (25-34); MEAN CORPUSCULAR HGB CONC 35 g/dL (32-36); MEAN CORPUSCULAR VOLUME 88 fL (80-99); MEAN PLATELET VOLUME 9.9 fL (9.0-12.2); MONOCYTES # (AUTO) 0.3 10^3/uL (0.0-1.0); MONOCYTES % (AUTO) 6 % (0-12); NEUTROPHILS # (AUTO) 2.4 10^3/uL (1.8-7.8); NEUTROPHILS % (AUTO) 55 % (42-75); PLATELET COUNT 200 10^3/uL (130-400); WHITE BLOOD COUNT 4.4 10^3/uL (4.3-11.0)
[2020-04-10 11:30] LABS: BILIRUBIN,URINE NEGATIVE (NEGATIVE); CLARITY,URINE CLEAR; COLOR,URINE YELLOW; GLUCOSE, URINE (UA) NEGATIVE (NEGATIVE); KETONES,URINE NEGATIVE (NEGATIVE); LEUKOCYTE ESTERASE ,URINE NEGATIVE (NEGATIVE); NITRITE,URINE NEGATIVE (NEGATIVE); PROTEIN,URINE NEGATIVE (NEGATIVE)
[2020-04-10 11:37] LABS: BACTERIA,URINE NEGATIVE /HPF; RBC,URINE RARE /HPF; WBC,URINE RARE /HPF
[2020-04-10 11:42] LABS: ALANINE AMINOTRANSFERASE 39 U/L (0-55); ALBUMIN 3.9 GM/DL (3.2-4.5); ALKALINE PHOSPHATASE 77 U/L (40-136); BILIRUBIN,TOTAL 0.4 MG/DL (0.1-1.0); BUN/CREATININE RATIO 15; CALCIUM 8.8 MG/DL (8.5-10.1); CARBON DIOXIDE 22 MMOL/L (21-32); CHLORIDE 106 MMOL/L (98-107); GFR ESTIMATED > 60; GLUCOSE 109 MG/DL (70-105); POTASSIUM 4.2 MMOL/L (3.6-5.0); SODIUM 137 MMOL/L (135-145); TOTAL PROTEIN 6.9 GM/DL (6.4-8.2)
[2020-05-09 09:50] LABS: BILIRUBIN,URINE NEGATIVE (NEGATIVE); CLARITY,URINE CLEAR; COLOR,URINE YELLOW; GLUCOSE, URINE (UA) NEGATIVE (NEGATIVE); KETONES,URINE NEGATIVE (NEGATIVE); LEUKOCYTE ESTERASE ,URINE NEGATIVE (NEGATIVE); NITRITE,URINE NEGATIVE (NEGATIVE); PROTEIN,URINE NEGATIVE (NEGATIVE)
[2020-05-09 09:52] LABS: BASOPHILS % (AUTO) 0 % (0-10); EOSINOPHILS # (AUTO) 0.2 10^3/uL (0.0-0.3); EOSINOPHILS % (AUTO) 4 % (0-10); HEMATOCRIT 39 % (40-54); HEMOGLOBIN 13.7 g/dL (13.3-17.7); LYMPHOCYTES # (AUTO) 1.7 10^3/uL (1.0-4.0); LYMPHOCYTES % (AUTO) 34 % (12-44); MEAN CORPUSCULAR HEMOGLOBIN 30 pg (25-34); MEAN CORPUSCULAR HGB CONC 35 g/dL (32-36); MEAN CORPUSCULAR VOLUME 87 fL (80-99); MEAN PLATELET VOLUME 9.9 fL (9.0-12.2); MONOCYTES # (AUTO) 0.4 10^3/uL (0.0-1.0); MONOCYTES % (AUTO) 9 % (0-12); NEUTROPHILS # (AUTO) 2.6 10^3/uL (1.8-7.8); NEUTROPHILS % (AUTO) 53 % (42-75); PLATELET COUNT 183 10^3/uL (130-400); WHITE BLOOD COUNT 4.9 10^3/uL (4.3-11.0)
[2020-05-09 09:58] LABS: BACTERIA,URINE NEGATIVE /HPF; WBC,URINE RARE /HPF
[2020-05-09 10:15] LABS: ALANINE AMINOTRANSFERASE 47 U/L (0-55); ALBUMIN 3.9 GM/DL (3.2-4.5); ALKALINE PHOSPHATASE 78 U/L (40-136); BILIRUBIN,TOTAL 0.5 MG/DL (0.1-1.0); BUN/CREATININE RATIO 14; CALCIUM 8.9 MG/DL (8.5-10.1); CARBON DIOXIDE 22 MMOL/L (21-32); CHLORIDE 105 MMOL/L (98-107); CREATININE SERUM 0.97 MG/DL (0.60-1.30); GFR ESTIMATED > 60; GLUCOSE 90 MG/DL (70-105); POTASSIUM 4.1 MMOL/L (3.6-5.0); SODIUM 136 MMOL/L (135-145); TOTAL PROTEIN 6.9 GM/DL (6.4-8.2)
[2020-06-05 10:21] LABS: BASOPHILS % (AUTO) 0 % (0-10); EOSINOPHILS # (AUTO) 0.1 10^3/uL (0.0-0.3); EOSINOPHILS % (AUTO) 2 % (0-10); HEMATOCRIT 40 % (40-54); LYMPHOCYTES # (AUTO) 1.4 10^3/uL (1.0-4.0); LYMPHOCYTES % (AUTO) 31 % (12-44); MEAN CORPUSCULAR HEMOGLOBIN 31 pg (25-34); MEAN CORPUSCULAR HGB CONC 35 g/dL (32-36); MEAN CORPUSCULAR VOLUME 88 fL (80-99); MEAN PLATELET VOLUME 10.1 fL (9.0-12.2); MONOCYTES # (AUTO) 0.3 10^3/uL (0.0-1.0); MONOCYTES % (AUTO) 7 % (0-12); NEUTROPHILS # (AUTO) 2.7 10^3/uL (1.8-7.8); NEUTROPHILS % (AUTO) 59 % (42-75); PLATELET COUNT 182 10^3/uL (130-400); WHITE BLOOD COUNT 4.6 10^3/uL (4.3-11.0)
[2020-06-05 10:30] LABS: BILIRUBIN,URINE NEGATIVE (NEGATIVE); CLARITY,URINE CLEAR; COLOR,URINE YELLOW; GLUCOSE, URINE (UA) NEGATIVE (NEGATIVE); KETONES,URINE NEGATIVE (NEGATIVE); LEUKOCYTE ESTERASE ,URINE NEGATIVE (NEGATIVE); NITRITE,URINE NEGATIVE (NEGATIVE); PROTEIN,URINE NEGATIVE (NEGATIVE)
[2020-06-05 10:49] LABS: BACTERIA,URINE TRACE /HPF; WBC,URINE RARE /HPF
[2020-06-05 11:05] LABS: CARBON DIOXIDE 23 MMOL/L (21-32); CHLORIDE 107 MMOL/L (98-107); POTASSIUM 4.5 MMOL/L (3.6-5.0); SODIUM 138 MMOL/L (135-145)
[2020-06-05 11:06] LABS: ALANINE AMINOTRANSFERASE 40 U/L (0-55); ALBUMIN 3.9 GM/DL (3.2-4.5); ALKALINE PHOSPHATASE 68 U/L (40-136); BILIRUBIN,TOTAL 0.5 MG/DL (0.1-1.0); BUN/CREATININE RATIO 15; CREATININE SERUM 0.96 MG/DL (0.60-1.30); GFR ESTIMATED > 60; GLUCOSE 92 MG/DL (70-105)
[~2020-07-04 09:17] MED LIST changes: -CATHETER FLUSH 10 ML SYR IV PRN; -HOLD METFORMIN - RECEIVED CONTRAST 20 ML VIAL IV SCH; -IOHEXOL 350 MG/ML 100 ML (OMNIPAQUE 350) VIAL IV ONE; +NIVOLUMAB 480 MG in NS (IVPB) CANCER CENTER 100 ML IV SCH; -NS 100 ML (IVPB) BAG IV ONE; +NS IV 500 ML (CANCER CENTER) 500 ML IV SCH
[2020-07-04 09:35] LABS: BASOPHILS % (AUTO) 1 % (0-10); EOSINOPHILS # (AUTO) 0.1 10^3/uL (0.0-0.3); EOSINOPHILS % (AUTO) 2 % (0-10); HEMATOCRIT 42 % (40-54); HEMOGLOBIN 14.5 g/dL (13.3-17.7); LYMPHOCYTES # (AUTO) 1.9 10^3/uL (1.0-4.0); LYMPHOCYTES % (AUTO) 34 % (12-44); MEAN CORPUSCULAR HEMOGLOBIN 31 pg (25-34); MEAN CORPUSCULAR HGB CONC 35 g/dL (32-36); MEAN CORPUSCULAR VOLUME 89 fL (80-99); MEAN PLATELET VOLUME 9.9 fL (9.0-12.2); MONOCYTES # (AUTO) 0.4 10^3/uL (0.0-1.0); MONOCYTES % (AUTO) 7 % (0-12); NEUTROPHILS # (AUTO) 3.2 10^3/uL (1.8-7.8); NEUTROPHILS % (AUTO) 57 % (42-75); PLATELET COUNT 209 10^3/uL (130-400); WHITE BLOOD COUNT 5.7 10^3/uL (4.3-11.0)
[2020-07-04 09:39] LABS: BILIRUBIN,URINE NEGATIVE (NEGATIVE); CLARITY,URINE CLEAR; COLOR,URINE YELLOW; GLUCOSE, URINE (UA) NEGATIVE (NEGATIVE); KETONES,URINE NEGATIVE (NEGATIVE); LEUKOCYTE ESTERASE ,URINE NEGATIVE (NEGATIVE); NITRITE,URINE NEGATIVE (NEGATIVE); PH,URINE 5.5 (5-9); PROTEIN,URINE NEGATIVE (NEGATIVE)
[2020-07-04 09:50] LABS: BACTERIA,URINE NEGATIVE /HPF; CALCIUM OXALATE CRYSTALS,UR RARE /LPF
[2020-07-04 09:56] LABS: ALANINE AMINOTRANSFERASE 38 U/L (0-55); ALBUMIN 3.9 GM/DL (3.2-4.5); ALKALINE PHOSPHATASE 71 U/L (40-136); BILIRUBIN,TOTAL 0.5 MG/DL (0.1-1.0); BUN/CREATININE RATIO 16; CALCIUM 8.9 MG/DL (8.5-10.1); CARBON DIOXIDE 20 MMOL/L (21-32); CHLORIDE 105 MMOL/L (98-107); GFR ESTIMATED > 60; GLUCOSE 95 MG/DL (70-105); POTASSIUM 4.4 MMOL/L (3.6-5.0); SODIUM 136 MMOL/L (135-145)
== END 2020-07-09 | disposition home or self-care (01) ==
LOC: ONC 09:17
PROVIDERS: ATTEND Internal Medicine Hematology & Oncology
DX: Z51.11 Encounter for antineoplastic chemotherapy (principal); C64.2 Malignant neoplasm of left kidney, except renal pelvis; C79.51 Secondary malignant neoplasm of bone; C78.02 Secondary malignant neoplasm of left lung; C78.7 Secondary malignant neoplasm of liver and intrahepatic bile duct; I10 Essential (primary) hypertension; E03.9 Hypothyroidism, unspecified; Z98.890 Other specified postprocedural states
CPT/HCPCS: 80053; 81000; 84443; 85025; 93005; 96413; G0463; 36591

== ENCOUNTER → 2020-09-23 | Outpatient (CLI) | payer MEDICARE, OTHER ==
[~2020-09-23] MED LIST changes: +BARIUM SUSPENSION 2.1% (VANILLA SILQ) 450 ML PO ONE; +CATHETER FLUSH 10 ML SYR IV PRN; +ERGO1250 PO; +HOLD METFORMIN - RECEIVED CONTRAST 20 ML VIAL IV SCH; +IOHEXOL 350 MG/ML 100 ML (OMNIPAQUE 350) VIAL IV ONE; -NIVOLUMAB 480 MG in NS (IVPB) CANCER CENTER 100 ML IV SCH; +NS 100 ML (IVPB) BAG IV ONE; -NS IV 500 ML (CANCER CENTER) 500 ML IV SCH
--- NOTE | 2020-09-23 14:31 | Diagnostic Imaging Report ---
PROCEDURE: CT chest with contrast, CT abdomen and pelvis with and without contrast. TECHNIQUE: Pre and post intravenous contrast axial imaging of the abdomen and pelvis and post contrast axial imaging of the chest were performed. Auto Exposure Controls were utilized during the CT exam to meet ALARA standards for radiation dose reduction. INDICATION: Follow-up primary malignant neoplasm left kidney. Correlation is made with prior CT from 06/28/2020. CT CHEST: No axillary lymphadenopathy is detected. Right paratracheal lymph node measures 12 mm x 9 mm compared with approximately 11 mm x 8 mm. No other mediastinal enlarged lymph nodes or hilar lymphadenopathy is seen. There is trace pericardial fluid. There is a small right pleural effusion, slightly decreased since the prior study. No left-sided pleural effusion is identified. A 3 mm right apical nodule is stable. A 4-5 mm right upper lobe nodule more inferiorly is stable. A right cardiophrenic soft tissue mass measures 3.7 x 1.8 cm compared with 3.7 x 2.0 cm on prior. No additional pulmonary nodules are identified. IMPRESSION: Stable CT chest since exam from 06/28/2020. CT ABDOMEN AND PELVIS: Hepatic low-attenuation lesions consistent with cysts are again noted and appear stable. The low attenuation peripheral based lesion in the inferior right lobe of the liver measures approximately 12 mm compared with 10 mm. No new liver mass is identified. Gallbladder again contains multiple stones. There is no biliary ductal dilatation. The pancreas and spleen are unremarkable. No adrenal mass is identified. Right kidney is unremarkable. The complex low attenuation lesion in the left kidney measures 4.9 cm AP x 4.3 cm transverse x 5.5 cm cephalocaudal compared with 4.8 cm x 4.9 cm x 5.5 cm on prior. Aorta is nonaneurysmal. Bowel loops remain normal in caliber without evidence of obstruction. There is no free fluid or fluid collection. No abdominal or pelvic lymphadenopathy is seen. Bladder and prostate are unremarkable. The bony structures are nonacute. IMPRESSION: Stable CT abdomen and pelvis since exam from 06/28/2020. No new abnormality is detected. Dictated by: Dictated on workstation # [id number]
--- NOTE | 2020-09-23 16:45 | Diagnostic Imaging Report ---
INDICATION: Kidney neoplasm. TECHNIQUE: The patient was administered 25.0 mCi of technetium 99m MDP intravenously and whole-body imaging was performed after a 3 hour delay. COMPARISON: Correlation is made with the prior whole body bone scan from 06/28/2020. FINDINGS: Normal uptake of activity by the axial and appendicular skeleton is noted. There is uptake by the kidneys with excretion into the urinary bladder. Mild degenerative uptake in the bilateral feet is noted. No suspicious focus is identified to suggest osseous metastatic disease. IMPRESSION: No scintigraphic evidence of osseous metastatic disease. Dictated by: Dictated on workstation # [id number]
== END ==
LOC: CARD 12:00
PROVIDERS: ATTEND Internal Medicine Hematology & Oncology
DX: C64.2 Malignant neoplasm of left kidney, except renal pelvis (principal)
CPT/HCPCS: 71260; 74178; 78306; A9503

== ENCOUNTER 2020-10-23 15:30 | Outpatient (RCR) | payer MEDICARE, OTHER ==
[2020-08-01 09:59] LABS: BASOPHILS % (AUTO) 0 % (0-10); EOSINOPHILS # (AUTO) 0.1 10^3/uL (0.0-0.3); EOSINOPHILS % (AUTO) 2 % (0-10); HEMATOCRIT 41 % (40-54); HEMOGLOBIN 14.1 g/dL (13.3-17.7); LYMPHOCYTES # (AUTO) 1.6 10^3/uL (1.0-4.0); LYMPHOCYTES % (AUTO) 33 % (12-44); MEAN CORPUSCULAR HEMOGLOBIN 31 pg (25-34); MEAN CORPUSCULAR HGB CONC 35 g/dL (32-36); MEAN CORPUSCULAR VOLUME 89 fL (80-99); MEAN PLATELET VOLUME 10.3 fL (9.0-12.2); MONOCYTES # (AUTO) 0.4 10^3/uL (0.0-1.0); MONOCYTES % (AUTO) 7 % (0-12); NEUTROPHILS # (AUTO) 2.9 10^3/uL (1.8-7.8); NEUTROPHILS % (AUTO) 58 % (42-75); PLATELET COUNT 189 10^3/uL (130-400)
[2020-08-01 10:20] LABS: ALANINE AMINOTRANSFERASE 42 U/L (0-55); ALBUMIN 3.9 GM/DL (3.2-4.5); ALKALINE PHOSPHATASE 57 U/L (40-136); BILIRUBIN,TOTAL 0.5 MG/DL (0.1-1.0); BUN/CREATININE RATIO 15; CALCIUM 8.9 MG/DL (8.5-10.1); CARBON DIOXIDE 25 MMOL/L (21-32); CHLORIDE 106 MMOL/L (98-107); CREATININE SERUM 0.95 MG/DL (0.60-1.30); GFR ESTIMATED > 60; GLUCOSE 112 MG/DL (70-105); POTASSIUM 4.3 MMOL/L (3.6-5.0); SODIUM 136 MMOL/L (135-145); TOTAL PROTEIN 6.8 GM/DL (6.4-8.2)
[2020-08-01 10:29] LABS: BILIRUBIN,URINE NEGATIVE (NEGATIVE); CLARITY,URINE CLEAR; COLOR,URINE YELLOW; GLUCOSE, URINE (UA) NEGATIVE (NEGATIVE); KETONES,URINE NEGATIVE (NEGATIVE); LEUKOCYTE ESTERASE ,URINE NEGATIVE (NEGATIVE); NITRITE,URINE NEGATIVE (NEGATIVE); PROTEIN,URINE NEGATIVE (NEGATIVE)
[2020-08-01 10:38] LABS: BACTERIA,URINE NEGATIVE /HPF
[2020-08-29 09:51] LABS: BASOPHILS % (AUTO) 1 % (0-10); EOSINOPHILS # (AUTO) 0.1 10^3/uL (0.0-0.3); EOSINOPHILS % (AUTO) 2 % (0-10); HEMATOCRIT 41 % (40-54); HEMOGLOBIN 14.3 g/dL (13.3-17.7); LYMPHOCYTES # (AUTO) 1.4 10^3/uL (1.0-4.0); LYMPHOCYTES % (AUTO) 35 % (12-44); MEAN CORPUSCULAR HEMOGLOBIN 31 pg (25-34); MEAN CORPUSCULAR HGB CONC 35 g/dL (32-36); MEAN CORPUSCULAR VOLUME 89 fL (80-99); MEAN PLATELET VOLUME 10.2 fL (9.0-12.2); MONOCYTES # (AUTO) 0.3 10^3/uL (0.0-1.0); MONOCYTES % (AUTO) 7 % (0-12); NEUTROPHILS # (AUTO) 2.3 10^3/uL (1.8-7.8); NEUTROPHILS % (AUTO) 55 % (42-75); PLATELET COUNT 190 10^3/uL (130-400); WHITE BLOOD COUNT 4.1 10^3/uL (4.3-11.0)
[2020-08-29 09:55] LABS: BILIRUBIN,URINE NEGATIVE (NEGATIVE); CLARITY,URINE CLEAR; COLOR,URINE OTHER; GLUCOSE, URINE (UA) NEGATIVE (NEGATIVE); KETONES,URINE NEGATIVE (NEGATIVE); LEUKOCYTE ESTERASE ,URINE NEGATIVE (NEGATIVE); NITRITE,URINE NEGATIVE (NEGATIVE); PROTEIN,URINE NEGATIVE (NEGATIVE)
[2020-08-29 10:05] LABS: BACTERIA,URINE NEGATIVE /HPF
[2020-08-29 10:12] LABS: ALANINE AMINOTRANSFERASE 34 U/L (0-55); ALBUMIN 3.8 GM/DL (3.2-4.5); ALKALINE PHOSPHATASE 60 U/L (40-136); BILIRUBIN,TOTAL 0.4 MG/DL (0.1-1.0); BUN/CREATININE RATIO 18; CALCIUM 9.1 MG/DL (8.5-10.1); CARBON DIOXIDE 25 MMOL/L (21-32); CHLORIDE 103 MMOL/L (98-107); CREATININE SERUM 0.92 MG/DL (0.60-1.30); GFR ESTIMATED > 60; GLUCOSE 140 MG/DL (70-105); POTASSIUM 4.1 MMOL/L (3.6-5.0); SODIUM 135 MMOL/L (135-145); TOTAL PROTEIN 6.7 GM/DL (6.4-8.2)
[2020-09-26 14:42] LABS: BASOPHILS % (AUTO) 1 % (0-10); EOSINOPHILS # (AUTO) 0.1 10^3/uL (0.0-0.3); EOSINOPHILS % (AUTO) 1 % (0-10); HEMATOCRIT 41 % (40-54); HEMOGLOBIN 14.3 g/dL (13.3-17.7); LYMPHOCYTES # (AUTO) 1.6 10^3/uL (1.0-4.0); LYMPHOCYTES % (AUTO) 30 % (12-44); MEAN CORPUSCULAR HEMOGLOBIN 31 pg (25-34); MEAN CORPUSCULAR HGB CONC 35 g/dL (32-36); MEAN CORPUSCULAR VOLUME 89 fL (80-99); MEAN PLATELET VOLUME 10.3 fL (9.0-12.2); MONOCYTES # (AUTO) 0.4 10^3/uL (0.0-1.0); MONOCYTES % (AUTO) 7 % (0-12); NEUTROPHILS # (AUTO) 3.2 10^3/uL (1.8-7.8); NEUTROPHILS % (AUTO) 61 % (42-75); PLATELET COUNT 203 10^3/uL (130-400); WHITE BLOOD COUNT 5.2 10^3/uL (4.3-11.0)
[2020-09-26 14:55] LABS: BILIRUBIN,URINE NEGATIVE (NEGATIVE); CLARITY,URINE CLEAR; COLOR,URINE YELLOW; GLUCOSE, URINE (UA) NEGATIVE (NEGATIVE); KETONES,URINE NEGATIVE (NEGATIVE); LEUKOCYTE ESTERASE ,URINE NEGATIVE (NEGATIVE); NITRITE,URINE NEGATIVE (NEGATIVE); PH,URINE 5.5 (5-9); PROTEIN,URINE NEGATIVE (NEGATIVE)
[2020-09-26 15:03] LABS: BACTERIA,URINE TRACE /HPF; CALCIUM OXALATE CRYSTALS,UR FEW /LPF; SQUAMOUS EPITHELIAL CELL,UR RARE /HPF
[2020-09-26 15:05] LABS: BILIRUBIN,TOTAL 0.4 MG/DL (0.1-1.0); CALCIUM 9.1 MG/DL (8.5-10.1); CREATININE SERUM 1.3 MG/DL (0.60-1.30); POTASSIUM 3.9 MMOL/L (3.6-5.0); TOTAL PROTEIN 6.9 GM/DL (6.4-8.2)
[~2020-10-23 15:30] MED LIST changes: -BARIUM SUSPENSION 2.1% (VANILLA SILQ) 450 ML PO ONE; -CATHETER FLUSH 10 ML SYR IV PRN; -HOLD METFORMIN - RECEIVED CONTRAST 20 ML VIAL IV SCH; -IOHEXOL 350 MG/ML 100 ML (OMNIPAQUE 350) VIAL IV ONE; +NIVOLUMAB 480 MG in NS (IVPB) CANCER CENTER 100 ML IV SCH; -NS 100 ML (IVPB) BAG IV ONE; +NS IV 500 ML (CANCER CENTER) 500 ML IV SCH
[2020-10-23 15:52] LABS: BASOPHILS % (AUTO) 1 % (0-10); EOSINOPHILS # (AUTO) 0.1 10^3/uL (0.0-0.3); EOSINOPHILS % (AUTO) 2 % (0-10); HEMATOCRIT 39 % (40-54); HEMOGLOBIN 13.8 g/dL (13.3-17.7); LYMPHOCYTES # (AUTO) 1.8 10^3/uL (1.0-4.0); LYMPHOCYTES % (AUTO) 33 % (12-44); MEAN CORPUSCULAR HEMOGLOBIN 31 pg (25-34); MEAN CORPUSCULAR HGB CONC 35 g/dL (32-36); MEAN CORPUSCULAR VOLUME 90 fL (80-99); MEAN PLATELET VOLUME 10.6 fL (9.0-12.2); MONOCYTES # (AUTO) 0.5 10^3/uL (0.0-1.0); MONOCYTES % (AUTO) 9 % (0-12); NEUTROPHILS # (AUTO) 3.1 10^3/uL (1.8-7.8); NEUTROPHILS % (AUTO) 56 % (42-75); PLATELET COUNT 184 10^3/uL (130-400); WHITE BLOOD COUNT 5.5 10^3/uL (4.3-11.0)
[2020-10-23 16:14] LABS: ALBUMIN 3.7 GM/DL (3.2-4.5); BILIRUBIN,TOTAL 0.4 MG/DL (0.1-1.0); CALCIUM 9.2 MG/DL (8.5-10.1); CREATININE SERUM 1.02 MG/DL (0.60-1.30); POTASSIUM 4.3 MMOL/L (3.6-5.0)
[2020-10-23 16:31] LABS: BILIRUBIN,URINE NEGATIVE (NEGATIVE); CLARITY,URINE CLEAR; COLOR,URINE YELLOW; GLUCOSE, URINE (UA) NEGATIVE (NEGATIVE); KETONES,URINE NEGATIVE (NEGATIVE); LEUKOCYTE ESTERASE ,URINE NEGATIVE (NEGATIVE); NITRITE,URINE NEGATIVE (NEGATIVE); PH,URINE 5.5 (5-9); PROTEIN,URINE NEGATIVE (NEGATIVE)
[2020-10-23 16:45] LABS: BACTERIA,URINE TRACE /HPF
== END 2020-10-30 | disposition home or self-care (01) ==
LOC: ONC 15:30
PROVIDERS: ATTEND Internal Medicine Hematology & Oncology
DX: Z51.11 Encounter for antineoplastic chemotherapy (principal); C64.2 Malignant neoplasm of left kidney, except renal pelvis; C79.51 Secondary malignant neoplasm of bone; C78.02 Secondary malignant neoplasm of left lung; C78.7 Secondary malignant neoplasm of liver and intrahepatic bile duct; I10 Essential (primary) hypertension; E03.9 Hypothyroidism, unspecified; Z79.899 Other long term (current) drug therapy; Z79.890 Hormone replacement therapy; G47.33 Obstructive sleep apnea (adult) (pediatric); Z99.89 Dependence on other enabling machines and devices
CPT/HCPCS: 80053; 81000; 84443; 85025; 93005; 96413; G0463; 36591

== ENCOUNTER → 2020-12-16 | Outpatient (CLI) | payer MEDICARE, OTHER ==
[~2020-12-16] MED LIST changes: +BARIUM SUSPENSION 2.1% (VANILLA SILQ) 450 ML PO ONE; +CATHETER FLUSH 10 ML SYR IV PRN; +HOLD METFORMIN - RECEIVED CONTRAST 20 ML VIAL IV SCH; +IOHEXOL 350 MG/ML 100 ML (OMNIPAQUE 350) VIAL IV ONE; -NIVOLUMAB 480 MG in NS (IVPB) CANCER CENTER 100 ML IV SCH; +NS 100 ML (IVPB) BAG IV ONE; -NS IV 500 ML (CANCER CENTER) 500 ML IV SCH
--- NOTE | 2020-12-16 11:52 | Diagnostic Imaging Report ---
PROCEDURE: CT chest with contrast, CT abdomen and pelvis with and without contrast. TECHNIQUE: Pre and post intravenous contrast axial imaging of the abdomen and pelvis and post contrast axial imaging of the chest were performed. Auto Exposure Controls were utilized during the CT exam to meet ALARA standards for radiation dose reduction. INDICATION: Follow-up primary malignant neoplasm the left kidney. Correlation is made with prior CT from 09/23/2020. CT CHEST: No axillary lymphadenopathy is detected. A right paratracheal lymph node measures approximately 11 mm x 11 mm compared with 12 mm x 9 mm on prior. No hilar lymphadenopathy is detected. No pericardial fluid is identified. No significant pleural effusion is identified on today's study. Right apical nodular density is stable approximately 4 mm. A right upper lobe more inferiorly located is stable at 5 mm. Right cardiophrenic angle mass measures 3.7 x 2.3 cm compared to 3.7 x 1.8 cm. No new mass is identified. IMPRESSION: Overall stable CT chest study when compared with exam from 09/23/2020. CT abdomen and pelvis: Hepatic cysts appear stable. The low-density lesion peripheral aspect of the inferior right lobe of the liver is stable at 12 mm. No definite new liver mass is identified. Gallbladder contains several small stones. There is no biliary duct dilatation. Pancreas and spleen are unremarkable. No adrenal mass is identified. Right kidney is unremarkable. Complex low-attenuation lesion left kidney measures 4.7 cm AP by 4.3 cm transverse by 5.7 cm cephalocaudal. This compares with 4.9 x 4.3 cm x 5.5 cm on prior study. Aorta is unremarkable. No central retroperitoneal or mesenteric lymphadenopathy is seen. Bowel loops are normal in caliber. No ascites. Bladder is decompressed. Prostate is unremarkable. No pelvic lymphadenopathy is detected. Bony structures are nonacute. IMPRESSION: Stable CT abdomen pelvis study since 09/23/2020. Dictated by: Dictated on workstation # [id number]
--- NOTE | 2020-12-16 16:26 | Diagnostic Imaging Report ---
INDICATION: Kidney neoplasm. TECHNIQUE: Patient was administered 25.0 mCi technetium 99m MDP intravenously and whole body imaging was performed after three-hour delay. COMPARISON: Correlation is made with prior study from 09/23/2020. FINDINGS: There is uptake of activity by the axial and appendicular skeleton. There is uptake by the kidneys with excretion into the urinary bladder. There is abnormal uptake identified in the medial soft tissues of the right calf, etiology indeterminate. This appears to project separate from the tibia. No other suspicious foci are identified. IMPRESSION: There is abnormal accumulation of activity in the medial right lower extremity at the level of the mid shaft of the tibia. Exact etiology is indeterminate. Dedicated radiographs of the right lower extremity would be useful for further evaluation. Dictated by: Dictated on workstation # [id number]
== END ==
LOC: CARD 11:00
PROVIDERS: ATTEND Internal Medicine Hematology & Oncology
DX: C64.2 Malignant neoplasm of left kidney, except renal pelvis (principal)
CPT/HCPCS: 71260; 74178; 78306; A9503

== ENCOUNTER → 2020-12-20 | Outpatient (CLI) | payer MEDICARE, OTHER ==
[~2020-12-20] MED LIST changes: -BARIUM SUSPENSION 2.1% (VANILLA SILQ) 450 ML PO ONE
--- NOTE | 2020-12-20 11:53 | Diagnostic Imaging Report ---
PROCEDURE: CT right lower extremity with and without contrast. TECHNIQUE: Axial imaging through the right lower extremity was performed before and after the administration of intravenous contrast. Coronal and sagittal reformations were also performed. Auto Exposure Controls were utilized during the CT exam to meet ALARA standards for radiation dose reduction. INDICATION: Abnormal bone scan. There are no prior CT examinations available for comparison. FINDINGS: The recent nuclear medicine bone scan exam of 12/16/2020 noted abnormal uptake in the soft tissues along the medial aspect of the right calf. This finding has developed in the interval since the previous nuclear medicine bone scan of 06/24/2020. On this exam, there are numerous enhancing vessels in this area. This region has a conglomerate size of approximately 1.5 x 1.8 x 5.7 cm in maximum AP, transverse and longitudinal dimensions. This appearance could be secondary to a hemangioma. However, there may be a small amount of edema in this area which would be unusual for a hemangioma. It would also be unlikely that this is related to a hemorrhagic metastasis secondary to the patient's diagnosis of renal cell carcinoma. Reportedly, the patient has had a biopsy of the right calf in the past on 04/03/2019. However, the results of that biopsy are not known to me. There is no other soft tissue abnormality identified. There is no fracture or acute bony abnormality appreciated either. There is moderate tricompartmental disease of the knee joint. There is no sign of a joint effusion. IMPRESSION: 1. There are numerous enhancing vessels in the soft tissues along the posterior medial aspect of the proximal right lower lobe. This would correspond to the abnormal uptake seen on the recent nuclear medicine bone scan. This finding may well be secondary to a hemangioma. The possibility of a hypervascular metastatic focus related to the patient's diagnosis of renal cell carcinoma should also be considered. 2. If the results of this biopsy are available, they would be helpful for comparison. 3. If further imaging is desired, then PET/CT would be recommended. 4. These results will be discussed with Dr. Padilla. Dictated on workstation # [id number]
== END ==
LOC: RAD 10:15
PROVIDERS: ATTEND Internal Medicine Hematology & Oncology
DX: R93.89 Abnormal findings on diagnostic imaging of other specified body structures (principal); C64.2 Malignant neoplasm of left kidney, except renal pelvis
CPT/HCPCS: 73702

== ENCOUNTER → 2020-12-30 | Outpatient (CLI) | payer MEDICARE, OTHER ==
[~2020-12-30] MED LIST changes: -CATHETER FLUSH 10 ML SYR IV PRN; +GADOBUTROL 15 MMOL/15 ML (GADAVIST) VIAL IV ONE; -HOLD METFORMIN - RECEIVED CONTRAST 20 ML VIAL IV SCH; -IOHEXOL 350 MG/ML 100 ML (OMNIPAQUE 350) VIAL IV ONE; -NS 100 ML (IVPB) BAG IV ONE
--- NOTE | 2020-12-30 16:30 | Diagnostic Imaging Report ---
PROCEDURE: MR imaging right lower extremity with and without contrast. TECHNIQUE: Multiplanar, multisequence pre and post contrast-enhanced MR imaging of the right lower extremity was accomplished. INDICATION: Abnormal finding on prior CT COMPARISON: CT from 12/20/2020 FINDINGS: No acute fracture is seen in the right tibia and fibula. No focal osseous lesions are seen. No cortical defects or erosions are identified. Within the medial soleus there is a focal area of T2 hyperintensity and enhancement measuring 3.3 x 2.5 cm on axial imaging and 4.7 cm craniocaudal. There is no significant associated mass effect. There are small hypointense foci within this lesion, likely calcifications. No focal muscular atrophy is appreciated in the right lower leg. There is mild subcutaneous edema about the lower leg. The contralateral left leg is seen on some sequences, and demonstrates moderate muscular atrophy in the soleus and the medial head of the gastrocnemius. IMPRESSION: 1. Abnormal enhancing signal in the medial soleus with calcifications. 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 A neoplastic lesion is felt less likely. Recommend correlation with a history of trauma, consider followup in 6 weeks. Dictated by: Dictated on workstation # [id number]
== END ==
LOC: RAD 12:40
PROVIDERS: ATTEND Internal Medicine Hematology & Oncology
DX: C64.2 Malignant neoplasm of left kidney, except renal pelvis (principal); R93.89 Abnormal findings on diagnostic imaging of other specified body structures
CPT/HCPCS: 73720

== ENCOUNTER 2021-02-13 11:33 | Outpatient (RCR) | payer MEDICARE, OTHER ==
[2020-11-21 13:12] LABS: BILIRUBIN,URINE NEGATIVE (NEGATIVE); CLARITY,URINE CLEAR; COLOR,URINE YELLOW; GLUCOSE, URINE (UA) NEGATIVE (NEGATIVE); KETONES,URINE NEGATIVE (NEGATIVE); LEUKOCYTE ESTERASE ,URINE NEGATIVE (NEGATIVE); NITRITE,URINE NEGATIVE (NEGATIVE); PROTEIN,URINE NEGATIVE (NEGATIVE)
[2020-11-21 13:14] LABS: BASOPHILS % (AUTO) 1 % (0-10); EOSINOPHILS # (AUTO) 0.1 10^3/uL (0.0-0.3); EOSINOPHILS % (AUTO) 1 % (0-10); HEMATOCRIT 39 % (40-54); HEMOGLOBIN 13.5 g/dL (13.3-17.7); LYMPHOCYTES # (AUTO) 1.4 10^3/uL (1.0-4.0); LYMPHOCYTES % (AUTO) 26 % (12-44); MEAN CORPUSCULAR HEMOGLOBIN 31 pg (25-34); MEAN CORPUSCULAR HGB CONC 34 g/dL (32-36); MEAN CORPUSCULAR VOLUME 91 fL (80-99); MEAN PLATELET VOLUME 10.5 fL (9.0-12.2); MONOCYTES # (AUTO) 0.4 10^3/uL (0.0-1.0); MONOCYTES % (AUTO) 7 % (0-12); NEUTROPHILS # (AUTO) 3.4 10^3/uL (1.8-7.8); NEUTROPHILS % (AUTO) 65 % (42-75); PLATELET COUNT 201 10^3/uL (130-400); WHITE BLOOD COUNT 5.2 10^3/uL (4.3-11.0)
[2020-11-21 13:26] LABS: ALBUMIN 3.9 GM/DL (3.2-4.5); BILIRUBIN,TOTAL 0.4 MG/DL (0.1-1.0); CALCIUM 9.7 MG/DL (8.5-10.1); CREATININE SERUM 1.13 MG/DL (0.60-1.30); POTASSIUM 4.2 MMOL/L (3.6-5.0); TOTAL PROTEIN 6.5 GM/DL (6.4-8.2)
[2020-11-21 13:50] LABS: AMORPHOUS SEDIMENT,UR FEW AMOR URATES /LPF; BACTERIA,URINE TRACE /HPF; CALCIUM OXALATE CRYSTALS,UR RARE /LPF; WBC,URINE 0-2 /HPF
[2020-12-19 11:21] LABS: BASOPHILS % (AUTO) 1 % (0-10); EOSINOPHILS # (AUTO) 0.1 10^3/uL (0.0-0.3); EOSINOPHILS % (AUTO) 1 % (0-10); HEMATOCRIT 40 % (40-54); HEMOGLOBIN 13.8 g/dL (13.3-17.7); LYMPHOCYTES # (AUTO) 1.6 10^3/uL (1.0-4.0); LYMPHOCYTES % (AUTO) 32 % (12-44); MEAN CORPUSCULAR HEMOGLOBIN 32 pg (25-34); MEAN CORPUSCULAR HGB CONC 35 g/dL (32-36); MEAN CORPUSCULAR VOLUME 92 fL (80-99); MONOCYTES # (AUTO) 0.4 10^3/uL (0.0-1.0); MONOCYTES % (AUTO) 9 % (0-12); NEUTROPHILS # (AUTO) 2.8 10^3/uL (1.8-7.8); NEUTROPHILS % (AUTO) 57 % (42-75); PLATELET COUNT 194 10^3/uL (130-400); WHITE BLOOD COUNT 4.9 10^3/uL (4.3-11.0)
[2020-12-19 11:22] LABS: BILIRUBIN,URINE NEGATIVE (NEGATIVE); CLARITY,URINE SL CLOUDY; COLOR,URINE YELLOW; GLUCOSE, URINE (UA) NEGATIVE (NEGATIVE); KETONES,URINE NEGATIVE (NEGATIVE); LEUKOCYTE ESTERASE ,URINE NEGATIVE (NEGATIVE); NITRITE,URINE NEGATIVE (NEGATIVE); PROTEIN,URINE NEGATIVE (NEGATIVE)
[2020-12-19 11:43] LABS: BACTERIA,URINE NEGATIVE /HPF; WBC,URINE RARE /HPF
[2020-12-19 12:01] LABS: ALBUMIN 3.8 GM/DL (3.2-4.5); BILIRUBIN,TOTAL 0.4 MG/DL (0.1-1.0); CALCIUM 9.3 MG/DL (8.5-10.1); CREATININE SERUM 0.87 MG/DL (0.60-1.30); POTASSIUM 4.7 MMOL/L (3.6-5.0); TOTAL PROTEIN 6.6 GM/DL (6.4-8.2)
[2021-01-16 11:17] LABS: BASOPHILS % (AUTO) 0 % (0-10); EOSINOPHILS # (AUTO) 0.1 10^3/uL (0.0-0.3); EOSINOPHILS % (AUTO) 1 % (0-10); HEMATOCRIT 41 % (40-54); HEMOGLOBIN 14.2 g/dL (13.3-17.7); LYMPHOCYTES # (AUTO) 1.2 10^3/uL (1.0-4.0); LYMPHOCYTES % (AUTO) 27 % (12-44); MEAN CORPUSCULAR HEMOGLOBIN 31 pg (25-34); MEAN CORPUSCULAR HGB CONC 35 g/dL (32-36); MEAN CORPUSCULAR VOLUME 90 fL (80-99); MEAN PLATELET VOLUME 10.2 fL (9.0-12.2); MONOCYTES # (AUTO) 0.4 10^3/uL (0.0-1.0); MONOCYTES % (AUTO) 9 % (0-12); NEUTROPHILS # (AUTO) 2.9 10^3/uL (1.8-7.8); NEUTROPHILS % (AUTO) 63 % (42-75); PLATELET COUNT 196 10^3/uL (130-400); WHITE BLOOD COUNT 4.6 10^3/uL (4.3-11.0)
[2021-01-16 11:37] LABS: BILIRUBIN,URINE NEGATIVE (NEGATIVE); CLARITY,URINE CLEAR; COLOR,URINE YELLOW; GLUCOSE, URINE (UA) NEGATIVE (NEGATIVE); KETONES,URINE NEGATIVE (NEGATIVE); LEUKOCYTE ESTERASE ,URINE NEGATIVE (NEGATIVE); NITRITE,URINE NEGATIVE (NEGATIVE); PROTEIN,URINE NEGATIVE (NEGATIVE)
[2021-01-16 12:01] LABS: BACTERIA,URINE NEGATIVE /HPF; CALCIUM OXALATE CRYSTALS,UR MODERATE /LPF; WBC,URINE RARE /HPF
[2021-01-16 12:03] LABS: ALBUMIN 3.8 GM/DL (3.2-4.5); BILIRUBIN,TOTAL 0.6 MG/DL (0.1-1.0); CALCIUM 9.2 MG/DL (8.5-10.1); CREATININE SERUM 1.11 MG/DL (0.60-1.30); POTASSIUM 3.9 MMOL/L (3.6-5.0)
[~2021-02-13 11:33] MED LIST changes: -GADOBUTROL 15 MMOL/15 ML (GADAVIST) VIAL IV ONE; +NIVOLUMAB 480 MG in NS (IVPB) CANCER CENTER 100 ML IV SCH; +NS IV 500 ML (CANCER CENTER) 500 ML IV SCH
[2021-02-13 11:59] LABS: BASOPHILS % (AUTO) 1 % (0-10); EOSINOPHILS # (AUTO) 0.1 10^3/uL (0.0-0.3); EOSINOPHILS % (AUTO) 2 % (0-10); HEMATOCRIT 41 % (40-54); HEMOGLOBIN 14.1 g/dL (13.3-17.7); LYMPHOCYTES # (AUTO) 1.8 10^3/uL (1.0-4.0); LYMPHOCYTES % (AUTO) 37 % (12-44); MEAN CORPUSCULAR HEMOGLOBIN 31 pg (25-34); MEAN CORPUSCULAR HGB CONC 35 g/dL (32-36); MEAN CORPUSCULAR VOLUME 90 fL (80-99); MEAN PLATELET VOLUME 10.1 fL (9.0-12.2); MONOCYTES # (AUTO) 0.3 10^3/uL (0.0-1.0); MONOCYTES % (AUTO) 7 % (0-12); NEUTROPHILS # (AUTO) 2.6 10^3/uL (1.8-7.8); NEUTROPHILS % (AUTO) 54 % (42-75); PLATELET COUNT 186 10^3/uL (130-400); WHITE BLOOD COUNT 4.9 10^3/uL (4.3-11.0)
[2021-02-13 12:15] LABS: BILIRUBIN,URINE NEGATIVE (NEGATIVE); CLARITY,URINE CLEAR; COLOR,URINE YELLOW; GLUCOSE, URINE (UA) NEGATIVE (NEGATIVE); KETONES,URINE NEGATIVE (NEGATIVE); LEUKOCYTE ESTERASE ,URINE NEGATIVE (NEGATIVE); NITRITE,URINE NEGATIVE (NEGATIVE); PH,URINE 6.5 (5-9); PROTEIN,URINE TRACE (NEGATIVE)
[2021-02-13 12:24] LABS: BACTERIA,URINE NEGATIVE /HPF
[2021-02-13 12:44] LABS: ALBUMIN 3.8 GM/DL (3.2-4.5); BILIRUBIN,TOTAL 0.5 MG/DL (0.1-1.0); CALCIUM 9.1 MG/DL (8.5-10.1); CREATININE SERUM 1.02 MG/DL (0.60-1.30); POTASSIUM 4.5 MMOL/L (3.6-5.0); TOTAL PROTEIN 6.7 GM/DL (6.4-8.2)
== END 2021-02-19 | disposition home or self-care (01) ==
LOC: ONC 11:33
PROVIDERS: ATTEND Internal Medicine Hematology & Oncology
DX: Z51.11 Encounter for antineoplastic chemotherapy (principal); Z45.2 Encounter for adjustment and management of vascular access device; C64.2 Malignant neoplasm of left kidney, except renal pelvis; C79.51 Secondary malignant neoplasm of bone; C78.02 Secondary malignant neoplasm of left lung; C78.7 Secondary malignant neoplasm of liver and intrahepatic bile duct; I10 Essential (primary) hypertension; E03.9 Hypothyroidism, unspecified; E78.00 Pure hypercholesterolemia, unspecified; G47.33 Obstructive sleep apnea (adult) (pediatric); Z98.890 Other specified postprocedural states
CPT/HCPCS: 80053; 81000; 84443; 85025; 93005; 96413; G0463; 36591

== ENCOUNTER → 2021-02-24 | Outpatient (CLI) | payer MEDICARE, OTHER ==
[~2021-02-24] MED LIST changes: +GADOTERATE 0.5 MMOL/ML (CLARISCAN) 20 ML VIAL IV ONE; +HOLD METFORMIN - RECEIVED CONTRAST 20 ML VIAL IV SCH; +IOHEXOL 350 MG/ML 100 ML (OMNIPAQUE 350) VIAL IV ONE; -NIVOLUMAB 480 MG in NS (IVPB) CANCER CENTER 100 ML IV SCH; +NS 100 ML (IVPB) BAG IV ONE; -NS IV 500 ML (CANCER CENTER) 500 ML IV SCH
[2021-02-24] MEDS: CATHETER FLUSH 10 ML SYR IV PRN ×2 (12:06→13:03)
--- NOTE | 2021-02-24 15:12 | Diagnostic Imaging Report ---
PROCEDURE: CT chest with contrast, CT abdomen and pelvis with and without contrast. TECHNIQUE: Pre and post intravenous contrast axial imaging of the abdomen and pelvis and post contrast axial imaging of the chest were performed. Auto Exposure Controls were utilized during the CT exam to meet ALARA standards for radiation dose reduction. INDICATION: Malignant neoplasm of the left kidney. COMPARISON: Correlation is made with the prior CT from 12/16/2020. FINDINGS: CT CHEST: No axillary lymphadenopathy is identified. A right paratracheal lymph node measures 11 mm x 8 mm compared with 11 mm x 11 mm on the prior exam. No hilar lymphadenopathy is seen. A left-sided line has its tip near the origin of the coronary sinus, similar to the prior exam. No pericardial or pleural fluid is seen. The right cardiophrenic mass measures 3.2 x 2.2 cm compared with 3.7 x 2.3 cm. The right apical nodule is stable at 4 mm. The right upper lobe nodule more inferiorly located is stable at 4 to 5 mm. No new pulmonary nodules are identified. CT ABDOMEN/PELVIS: Hepatic cysts are again noted and appear stable. The somewhat ill-defined low-density lesion along the inferior periphery of the right lobe of the liver appears stable at approximately 14 mm. No new liver mass is detected. The gallbladder contains multiple stones. There is no biliary ductal dilatation. The pancreas and spleen are unremarkable. No adrenal mass is detected. The right kidney is unremarkable. The low-density exophytic lesion arising from the left kidney measures 4.7 cm AP x 4.4 cm transverse x 5.8 mm transverse. This compares with 4.7 cm x 4.3 cm x 5.7 cm on the prior exam. The aorta is of normal caliber. There is no central retroperitoneal or mesenteric lymphadenopathy. The bowel loops are of normal caliber. There is no obstruction. There is no free fluid or fluid collection. The bladder and prostate are unremarkable. No definite pelvic lymphadenopathy is seen. IMPRESSION: Overall stable CT of the chest, abdomen, and pelvis when compared to the prior study from 12/16/2020. Dictated by: Dictated on workstation # [id number]
--- NOTE | 2021-02-24 15:54 | Diagnostic Imaging Report ---
INDICATION: Kidney neoplasm. TECHNIQUE: The patient was administered 25.3 mCi of technetium 99m MDP intravenously and whole-body imaging was performed after a 3 hour delay. COMPARISON: Correlation is made with the prior whole body bone scan from 12/16/2020. FINDINGS: Normal distribution of the radiotracer is again noted. Uptake along the medial right calf is again noted, indeterminate. No new or suspicious foci are identified to suggest osseous metastatic disease. IMPRESSION: Stable whole body bone scan when compared to the exam from 12/16/2020. Dictated by: Dictated on workstation # [id number]
--- NOTE | 2021-02-24 16:36 | Diagnostic Imaging Report ---
PROCEDURE: MR imaging right lower extremity with and without contrast. TECHNIQUE: Multiplanar, multisequence pre- and [id number] MR imaging of the right lower extremity was accomplished. INDICATION: Follow-up abnormal finding in the right calf. COMPARISON: MRI from 12/30/2020. FINDINGS: Within the medial soleus, there is an area of T2 hyperintensity and postcontrast enhancement, which measures about 2.9 x 1.7 cm on axial imaging (image 27, series 12), compared to 3.3 x 2.5 cm previously. This has mildly decreased in size since the prior exam, with decreased internal enhancement and abnormal signal. There is persistent fiber irregularity in this region. Internal hypointense foci are again seen and appear stable, possibly calcifications. No new masses or fluid collections are seen in the right lower leg. There are areas of atrophy in the left soleus and gastrocnemius musculature. No acute osseous abnormality is seen in the right tibia and fibula. No focal bony lesions are identified. There is mild subcutaneous edema about the right leg. IMPRESSION: 1. Region of abnormal signal and enhancement in the right soleus has decreased in size and intensity since the prior exam, and is most consistent with myositis ossificans. No other masses or fluid collections are seen. Dictated by: Dictated on workstation # [id number]
== END ==
LOC: RAD 12:00
PROVIDERS: ATTEND Internal Medicine Hematology & Oncology
DX: C64.2 Malignant neoplasm of left kidney, except renal pelvis (principal)
CPT/HCPCS: 71260; 73720; 74178; 78306; A9503

== ENCOUNTER 2021-03-12 13:03 | Outpatient (RCR) | payer MEDICARE, OTHER ==
[~2021-03-12 13:03] MED LIST changes: -GADOTERATE 0.5 MMOL/ML (CLARISCAN) 20 ML VIAL IV ONE; -HOLD METFORMIN - RECEIVED CONTRAST 20 ML VIAL IV SCH; -IOHEXOL 350 MG/ML 100 ML (OMNIPAQUE 350) VIAL IV ONE; +NIVOLUMAB 480 MG in NS (IVPB) CANCER CENTER 100 ML IV SCH; -NS 100 ML (IVPB) BAG IV ONE; +NS IV 500 ML (CANCER CENTER) 500 ML IV SCH
[2021-03-12 13:23] LABS: BASOPHILS % (AUTO) 0 % (0-10); EOSINOPHILS # (AUTO) 0.1 10^3/uL (0.0-0.3); EOSINOPHILS % (AUTO) 1 % (0-10); HEMATOCRIT 42 % (40-54); HEMOGLOBIN 14.2 g/dL (13.3-17.7); LYMPHOCYTES # (AUTO) 1.5 10^3/uL (1.0-4.0); LYMPHOCYTES % (AUTO) 25 % (12-44); MEAN CORPUSCULAR HEMOGLOBIN 31 pg (25-34); MEAN CORPUSCULAR HGB CONC 34 g/dL (32-36); MEAN CORPUSCULAR VOLUME 90 fL (80-99); MEAN PLATELET VOLUME 10.3 fL (9.0-12.2); MONOCYTES # (AUTO) 0.5 10^3/uL (0.0-1.0); MONOCYTES % (AUTO) 8 % (0-12); NEUTROPHILS % (AUTO) 66 % (42-75); PLATELET COUNT 197 10^3/uL (130-400); WHITE BLOOD COUNT 6.1 10^3/uL (4.3-11.0)
[2021-03-12 13:34] LABS: BILIRUBIN,URINE NEGATIVE (NEGATIVE); CLARITY,URINE CLEAR; COLOR,URINE YELLOW; GLUCOSE, URINE (UA) NEGATIVE (NEGATIVE); KETONES,URINE NEGATIVE (NEGATIVE); LEUKOCYTE ESTERASE ,URINE NEGATIVE (NEGATIVE); NITRITE,URINE NEGATIVE (NEGATIVE); PH,URINE 5.5 (5-9); PROTEIN,URINE NEGATIVE (NEGATIVE)
[2021-03-12 13:43] LABS: BACTERIA,URINE NEGATIVE /HPF
[2021-03-12 13:46] LABS: BILIRUBIN,TOTAL 0.5 MG/DL (0.1-1.0); CALCIUM 9.2 MG/DL (8.5-10.1); CREATININE SERUM 0.97 MG/DL (0.60-1.30); POTASSIUM 4.4 MMOL/L (3.6-5.0); TOTAL PROTEIN 6.8 GM/DL (6.4-8.2)
== END 2021-03-14 | disposition home or self-care (01) ==
LOC: ONC 13:03
PROVIDERS: ATTEND Internal Medicine Hematology & Oncology
DX: Z51.11 Encounter for antineoplastic chemotherapy (principal); C64.2 Malignant neoplasm of left kidney, except renal pelvis; C79.51 Secondary malignant neoplasm of bone; C78.02 Secondary malignant neoplasm of left lung; C78.7 Secondary malignant neoplasm of liver and intrahepatic bile duct; I10 Essential (primary) hypertension; E03.9 Hypothyroidism, unspecified; E78.00 Pure hypercholesterolemia, unspecified; Z98.890 Other specified postprocedural states
CPT/HCPCS: 80053; 81000; 84443; 85025; 93005; 96413; G0463; 99213

== ENCOUNTER 2021-04-10 10:57 | Outpatient (RCR) | payer MEDICARE, OTHER ==
[2021-04-10 11:16] LABS: BASOPHILS % (AUTO) 1 % (0-10); EOSINOPHILS # (AUTO) 0.1 10^3/uL (0.0-0.3); EOSINOPHILS % (AUTO) 1 % (0-10); HEMATOCRIT 42 % (40-54); HEMOGLOBIN 14.1 g/dL (13.3-17.7); LYMPHOCYTES # (AUTO) 1.7 10^3/uL (1.0-4.0); LYMPHOCYTES % (AUTO) 35 % (12-44); MEAN CORPUSCULAR HEMOGLOBIN 31 pg (25-34); MEAN CORPUSCULAR HGB CONC 34 g/dL (32-36); MEAN CORPUSCULAR VOLUME 90 fL (80-99); MONOCYTES # (AUTO) 0.4 10^3/uL (0.0-1.0); MONOCYTES % (AUTO) 8 % (0-12); NEUTROPHILS # (AUTO) 2.7 10^3/uL (1.8-7.8); NEUTROPHILS % (AUTO) 55 % (42-75); PLATELET COUNT 200 10^3/uL (130-400); WHITE BLOOD COUNT 4.9 10^3/uL (4.3-11.0)
[2021-04-10 11:26] LABS: BILIRUBIN,URINE NEGATIVE (NEGATIVE); CLARITY,URINE CLEAR; COLOR,URINE YELLOW; GLUCOSE, URINE (UA) NEGATIVE (NEGATIVE); KETONES,URINE NEGATIVE (NEGATIVE); LEUKOCYTE ESTERASE ,URINE NEGATIVE (NEGATIVE); NITRITE,URINE NEGATIVE (NEGATIVE); PROTEIN,URINE TRACE (NEGATIVE)
[2021-04-10 11:42] LABS: ALBUMIN 3.9 GM/DL (3.2-4.5); BILIRUBIN,TOTAL 0.5 MG/DL (0.1-1.0); CALCIUM 9.1 MG/DL (8.5-10.1); CREATININE SERUM 1.04 MG/DL (0.60-1.30); POTASSIUM 4.5 MMOL/L (3.6-5.0); TOTAL PROTEIN 6.7 GM/DL (6.4-8.2)
[2021-04-10 11:57] LABS: BACTERIA,URINE NEGATIVE /HPF
[2021-04-10 11:58] LABS: CALCIUM OXALATE CRYSTALS,UR MODERATE /LPF
== END 2021-04-14 | disposition home or self-care (01) ==
LOC: ONC 10:57
PROVIDERS: ATTEND Internal Medicine Hematology & Oncology
DX: Z51.11 Encounter for antineoplastic chemotherapy (principal); Z45.2 Encounter for adjustment and management of vascular access device; C64.2 Malignant neoplasm of left kidney, except renal pelvis; C78.00 Secondary malignant neoplasm of unspecified lung; C79.51 Secondary malignant neoplasm of bone; I10 Essential (primary) hypertension; E03.9 Hypothyroidism, unspecified; G47.33 Obstructive sleep apnea (adult) (pediatric); C78.7 Secondary malignant neoplasm of liver and intrahepatic bile duct; E78.00 Pure hypercholesterolemia, unspecified; E66.9 Obesity, unspecified
CPT/HCPCS: 80053; 81000; 84443; 85025; 93005; 96413; G0463; 36591; 99213

== ENCOUNTER → 2021-05-19 | Outpatient (CLI) | payer MEDICARE, OTHER ==
[~2021-05-19] MED LIST changes: +CATHETER FLUSH 10 ML SYR IV PRN; +HOLD METFORMIN - RECEIVED CONTRAST 20 ML VIAL IV SCH; +IOHEXOL 350 MG/ML 100 ML (OMNIPAQUE 350) VIAL IV ONE; -NIVOLUMAB 480 MG in NS (IVPB) CANCER CENTER 100 ML IV SCH; +NS 100 ML (IVPB) BAG IV ONE; -NS IV 500 ML (CANCER CENTER) 500 ML IV SCH
--- NOTE | 2021-05-19 12:54 | Diagnostic Imaging Report ---
EXAMINATION: CT chest with intravenous contrast, CT abdomen and pelvis without and with intravenous contrast. TECHNIQUE: Pre and post intravenous contrast axial imaging of the abdomen and pelvis and post contrast axial imaging of the chest were performed. All CT scans use one or more of the following dose optimizing techniques: automated exposure control, MA and/or KvP adjustment based on patient size and exam type or iterative reconstruction. HISTORY: Left kidney neoplasm COMPARISON: 02/24/2021 FINDINGS: Thyroid: The thyroid is normal. Mediastinum: Heart size is normal without significant pericardial effusion. Calcifications of the aorta and coronary vessels. Thoracic aorta is normal in caliber. No suspicious lymphadenopathy. Lungs and airways: The lungs are clear without consolidation, pleural effusion, or pneumothorax. There are subcentimeter pulmonary nodules that are unchanged from prior exam. A business center representative right upper lobe pulmonary nodule measures 0.4 cm (series 12 image 69). The airways are normal. Solid organs: Stable hypoattenuating hepatic lesions, the largest of which is compatible with a hepatic cyst. Multiple layering hyperdense stones within the gallbladder. There is no biliary ductal dilation. Pancreas is normal. Spleen is normal. Adrenal glands are normal. Stable size and appearance of a partially calcified exophytic left renal cortical lesion measuring 4.4 x 4.0 cm (previously 4.5 x 4.0 cm when measured in a similar fashion on the previous exam). No new suspicious renal lesion or hydronephrosis. Bowel: The stomach and small bowel are normal without obstruction. The colon is unremarkable. The appendix is nonvisualized. Peritoneum: There is no intraperitoneal free fluid or free air. No suspicious lymphadenopathy. Vasculature: Calcification of the aorta without aneurysm. Musculoskeletal: Degenerative changes of the spine without suspicious osseous lesion or compression fracture. Pelvis: The prostate gland is normal. The urinary bladder is normal. IMPRESSION: 1. Stable size and appearance of the exophytic left renal cortical lesion measuring up to 4.4 cm compared to 02/24/2021. 2. No new findings of metastatic disease within the chest, abdomen or pelvis. Dictated by: Dictated on workstation # [id number]
== END ==
LOC: RAD FS 10:25
PROVIDERS: ATTEND Internal Medicine Hematology & Oncology
DX: C64.2 Malignant neoplasm of left kidney, except renal pelvis (principal)
CPT/HCPCS: 71260; 74178; Q9967

== ENCOUNTER 2021-06-11 08:58 | Outpatient (RCR) | payer MEDICARE, OTHER ==
[2021-05-14 10:53] LABS: BASOPHILS % (AUTO) 1 % (0-10); EOSINOPHILS # (AUTO) 0.1 10^3/uL (0.0-0.3); EOSINOPHILS % (AUTO) 2 % (0-10); HEMATOCRIT 38 % (40-54); HEMOGLOBIN 13.2 g/dL (13.3-17.7); LYMPHOCYTES # (AUTO) 1.5 10^3/uL (1.0-4.0); LYMPHOCYTES % (AUTO) 33 % (12-44); MEAN CORPUSCULAR HEMOGLOBIN 31 pg (25-34); MEAN CORPUSCULAR HGB CONC 35 g/dL (32-36); MEAN CORPUSCULAR VOLUME 89 fL (80-99); MONOCYTES # (AUTO) 0.4 10^3/uL (0.0-1.0); MONOCYTES % (AUTO) 9 % (0-12); NEUTROPHILS # (AUTO) 2.5 10^3/uL (1.8-7.8); NEUTROPHILS % (AUTO) 56 % (42-75); PLATELET COUNT 182 10^3/uL (130-400); WHITE BLOOD COUNT 4.4 10^3/uL (4.3-11.0)
[2021-05-14 11:00] LABS: BILIRUBIN,URINE NEGATIVE (NEGATIVE); CLARITY,URINE SL CLOUDY; COLOR,URINE YELLOW; GLUCOSE, URINE (UA) NEGATIVE (NEGATIVE); KETONES,URINE NEGATIVE (NEGATIVE); LEUKOCYTE ESTERASE ,URINE NEGATIVE (NEGATIVE); NITRITE,URINE NEGATIVE (NEGATIVE); PROTEIN,URINE TRACE (NEGATIVE)
[2021-05-14 11:01] LABS: BACTERIA,URINE NEGATIVE /HPF; HYALINE CASTS, URINE 0-2 /LPF; RBC,URINE RARE /HPF; WBC,URINE RARE /HPF
[2021-05-14 11:19] LABS: ALBUMIN 3.7 GM/DL (3.2-4.5); BILIRUBIN,TOTAL 0.4 MG/DL (0.1-1.0); CALCIUM 8.6 MG/DL (8.5-10.1); CREATININE SERUM 0.87 MG/DL (0.60-1.30); POTASSIUM 4.3 MMOL/L (3.6-5.0); TOTAL PROTEIN 6.3 GM/DL (6.4-8.2)
[~2021-06-11 08:58] MED LIST changes: -CATHETER FLUSH 10 ML SYR IV PRN; -HOLD METFORMIN - RECEIVED CONTRAST 20 ML VIAL IV SCH; -IOHEXOL 350 MG/ML 100 ML (OMNIPAQUE 350) VIAL IV ONE; +NIVOLUMAB 480 MG in NS (IVPB) CANCER CENTER 100 ML IV SCH; -NS 100 ML (IVPB) BAG IV ONE; +NS IV 500 ML (CANCER CENTER) 500 ML IV SCH
[2021-06-11] MEDS ORDERED: HEParin (CENTRAL IV FLUSH) 500 UNIT/5 ML SYR IV PRN (10:00)
[2021-06-11] MEDS ORDERED: NS IV 500 ML (CANCER CENTER) IV SCH (10:00)
== END 2021-06-12 | disposition home or self-care (01) ==
LOC: ONC 08:58
PROVIDERS: ATTEND Internal Medicine Hematology & Oncology
DX: Z51.11 Encounter for antineoplastic chemotherapy (principal); C64.2 Malignant neoplasm of left kidney, except renal pelvis; C78.00 Secondary malignant neoplasm of unspecified lung; C79.51 Secondary malignant neoplasm of bone; I10 Essential (primary) hypertension; E03.9 Hypothyroidism, unspecified; G47.33 Obstructive sleep apnea (adult) (pediatric); C78.7 Secondary malignant neoplasm of liver and intrahepatic bile duct; E78.00 Pure hypercholesterolemia, unspecified; E66.9 Obesity, unspecified
CPT/HCPCS: 80053; 81000; 84443; 85025; 93005; 96360; 96413; G0463; 99213

== ENCOUNTER 2021-06-18 09:21 | Outpatient (RCR) | payer MEDICARE, OTHER ==
[~2021-06-18] VITALS: Ht 177.8 cm; Wt 112.0 kg
[~2021-06-18 09:21] MED LIST changes: +HEParin (CENTRAL IV FLUSH) 500 UNIT/5 ML SYR IV PRN; +NIVOLUMAB 480 MG in NS (IVPB) 100 ML IV SCH; -NIVOLUMAB 480 MG in NS (IVPB) CANCER CENTER 100 ML IV SCH; +NS (IVPB) 250 ML IV SCH; -NS IV 500 ML (CANCER CENTER) 500 ML IV SCH; +NS IV 500 ML 500 ML IV SCH
[2021-06-18 09:51] LABS: BASOPHILS % (AUTO) 0 % (0-10); EOSINOPHILS # (AUTO) 0.1 10^3/uL (0.0-0.3); EOSINOPHILS % (AUTO) 2 % (0-10); HEMATOCRIT 42 % (40-54); HEMOGLOBIN 14.5 g/dL (13.3-17.7); LYMPHOCYTES # (AUTO) 1.7 10^3/uL (1.0-4.0); LYMPHOCYTES % (AUTO) 35 % (12-44); MEAN CORPUSCULAR HEMOGLOBIN 31 pg (25-34); MEAN CORPUSCULAR HGB CONC 35 g/dL (32-36); MEAN CORPUSCULAR VOLUME 89 fL (80-99); MEAN PLATELET VOLUME 10.2 fL (9.0-12.2); MONOCYTES # (AUTO) 0.3 10^3/uL (0.0-1.0); MONOCYTES % (AUTO) 7 % (0-12); NEUTROPHILS # (AUTO) 2.7 10^3/uL (1.8-7.8); NEUTROPHILS % (AUTO) 56 % (42-75); PLATELET COUNT 198 10^3/uL (130-400); WHITE BLOOD COUNT 4.9 10^3/uL (4.3-11.0)
[2021-06-18 09:52] LABS: BILIRUBIN,URINE NEGATIVE (NEGATIVE); CLARITY,URINE CLEAR; COLOR,URINE YELLOW; GLUCOSE, URINE (UA) NEGATIVE (NEGATIVE); KETONES,URINE NEGATIVE (NEGATIVE); LEUKOCYTE ESTERASE ,URINE NEGATIVE (NEGATIVE); NITRITE,URINE NEGATIVE (NEGATIVE); PROTEIN,URINE 1+ (NEGATIVE)
[2021-06-18 10:12] LABS: BACTERIA,URINE NEGATIVE /HPF; WBC,URINE RARE /HPF
[2021-06-18 10:14] LABS: BILIRUBIN,TOTAL 0.5 MG/DL (0.1-1.0); CALCIUM 9.1 MG/DL (8.5-10.1); CREATININE SERUM 0.92 MG/DL (0.60-1.30); POTASSIUM 4.4 MMOL/L (3.6-5.0)
== END 2021-07-12 | disposition home or self-care (01) ==
LOC: ONC 09:21
PROVIDERS: ATTEND Internal Medicine Hematology & Oncology
DX: Z51.11 Encounter for antineoplastic chemotherapy (principal); Z45.2 Encounter for adjustment and management of vascular access device; C64.2 Malignant neoplasm of left kidney, except renal pelvis; C78.00 Secondary malignant neoplasm of unspecified lung; C79.51 Secondary malignant neoplasm of bone; C78.7 Secondary malignant neoplasm of liver and intrahepatic bile duct; I10 Essential (primary) hypertension; E03.9 Hypothyroidism, unspecified; G47.33 Obstructive sleep apnea (adult) (pediatric); E78.00 Pure hypercholesterolemia, unspecified; E66.9 Obesity, unspecified
CPT/HCPCS: 80053; 81000; 84443; 85025; 93005; 96360; 96413; G0463; 36591; 99213

== ENCOUNTER 2021-07-16 09:53 | Outpatient (RCR) | payer MEDICARE, OTHER ==
[~2021-07-16 09:53] MED LIST changes: -NS IV 500 ML 500 ML IV SCH
[2021-07-16 10:27] LABS: BASOPHILS % (AUTO) 0 % (0-10); EOSINOPHILS # (AUTO) 0.1 10^3/uL (0.0-0.3); EOSINOPHILS % (AUTO) 2 % (0-10); HEMATOCRIT 39 % (40-54); LYMPHOCYTES # (AUTO) 1.5 10^3/uL (1.0-4.0); LYMPHOCYTES % (AUTO) 34 % (12-44); MEAN CORPUSCULAR HEMOGLOBIN 32 pg (25-34); MEAN CORPUSCULAR HGB CONC 36 g/dL (32-36); MEAN CORPUSCULAR VOLUME 89 fL (80-99); MEAN PLATELET VOLUME 10.4 fL (9.0-12.2); MONOCYTES # (AUTO) 0.4 10^3/uL (0.0-1.0); MONOCYTES % (AUTO) 9 % (0-12); NEUTROPHILS # (AUTO) 2.5 10^3/uL (1.8-7.8); NEUTROPHILS % (AUTO) 56 % (42-75); PLATELET COUNT 193 10^3/uL (130-400); WHITE BLOOD COUNT 4.6 10^3/uL (4.3-11.0)
[2021-07-16 10:45] LABS: ALBUMIN 3.8 GM/DL (3.2-4.5); BILIRUBIN,TOTAL 0.4 MG/DL (0.1-1.0); CREATININE SERUM 0.87 MG/DL (0.60-1.30); POTASSIUM 4.3 MMOL/L (3.6-5.0); TOTAL PROTEIN 6.5 GM/DL (6.4-8.2)
[2021-07-16 10:59] LABS: BILIRUBIN,URINE NEGATIVE (NEGATIVE); CLARITY,URINE CLEAR; COLOR,URINE YELLOW; GLUCOSE, URINE (UA) NEGATIVE (NEGATIVE); KETONES,URINE NEGATIVE (NEGATIVE); LEUKOCYTE ESTERASE ,URINE NEGATIVE (NEGATIVE); NITRITE,URINE NEGATIVE (NEGATIVE); PH,URINE 5.5 (5-9); PROTEIN,URINE 2+ (NEGATIVE)
[2021-07-16 11:11] LABS: BACTERIA,URINE NEGATIVE /HPF; RBC,URINE RARE /HPF; SQUAMOUS EPITHELIAL CELL,UR RARE /HPF; WBC,URINE RARE /HPF
== END 2021-08-12 | disposition home or self-care (01) ==
LOC: ONC 09:53
PROVIDERS: ATTEND Internal Medicine Hematology & Oncology
DX: Z51.11 Encounter for antineoplastic chemotherapy (principal); C64.2 Malignant neoplasm of left kidney, except renal pelvis; C78.00 Secondary malignant neoplasm of unspecified lung; C79.51 Secondary malignant neoplasm of bone; C78.7 Secondary malignant neoplasm of liver and intrahepatic bile duct; I10 Essential (primary) hypertension; E03.9 Hypothyroidism, unspecified; G47.33 Obstructive sleep apnea (adult) (pediatric); E78.00 Pure hypercholesterolemia, unspecified; E66.9 Obesity, unspecified
CPT/HCPCS: 80053; 81000; 84443; 85025; 93005; 96413; G0463; 36591; 99213

== ENCOUNTER → 2021-09-02 | Outpatient (CLI) | payer MEDICARE, OTHER ==
[~2021-09-02] MED LIST changes: +CATHETER FLUSH 10 ML SYR IV PRN; -HEParin (CENTRAL IV FLUSH) 500 UNIT/5 ML SYR IV PRN; +HOLD METFORMIN - RECEIVED CONTRAST 20 ML VIAL IV SCH; +IOHEXOL 350 MG/ML 100 ML (OMNIPAQUE 350) VIAL IV ONE; -NIVOLUMAB 480 MG in NS (IVPB) 100 ML IV SCH; -NS (IVPB) 250 ML IV SCH; +NS 100 ML (IVPB) BAG IV ONE
--- NOTE | 2021-09-02 11:01 | Diagnostic Imaging Report ---
EXAMINATION: CT chest, pelvis with contrast, CT abdomen with and without contrast. TECHNIQUE: Precontrast acquisitions were acquired through the abdomen. Multiple contiguous axial images were obtained through the chest, abdomen and pelvis after administration of intravenous contrast. All CT scans use one or more of the following dose optimizing techniques: automated exposure control, MA and/or KvP adjustment based on patient size and exam type or iterative reconstruction. HISTORY: Renal cancer. COMPARISON: 05/19/2021 FINDINGS: There is no edema or pneumonia. No pleural effusion. No pneumothorax. No suspicious nodules. There is no axillary or supraclavicular lymphadenopathy. There is no mediastinal lymphadenopathy. Heart size is normal. There are mild coronary artery calcifications. No pericardial effusion. Aorta is normal in caliber. A left-sided portacatheter is present. It enters into left superior vena cava draining into the coronary sinus. There are stable cysts in liver. No suspicious liver lesions. There is no biliary ductal dilation. Stones are present in the gallbladder. No evidence of cholecystitis. Pancreas is normal. Spleen is normal. Adrenal glands are normal. There is a stable partially calcified exophytic left renal mass measuring 3.6 x 4.2 cm. No measurable enhancement is present. No new renal lesion. There is no hydronephrosis. Urinary bladder is normal. Visualized bowel is normal in caliber without obstruction or inflammation. No free fluid or air. No abdominal or pelvic lymphadenopathy. Aorta is normal in caliber without aneurysm. There are no suspicious osseous lesions. IMPRESSION: 1. Stable left renal mass without discernible contrast enhancement. 2. No metastatic disease in the chest, abdomen or pelvis. Dictated by: Dictated on workstation # [id number]
== END ==
LOC: CARD 09:51
PROVIDERS: ATTEND Internal Medicine Hematology & Oncology
DX: C64.2 Malignant neoplasm of left kidney, except renal pelvis (principal); R91.8 Other nonspecific abnormal finding of lung field
CPT/HCPCS: 71260; 74178; 93005

== ENCOUNTER 2021-09-10 10:50 | Outpatient (RCR) | payer MEDICARE, OTHER ==
[2021-08-13 10:20] LABS: BASOPHILS % (AUTO) 1 % (0-10); EOSINOPHILS # (AUTO) 0.1 10^3/uL (0.0-0.3); EOSINOPHILS % (AUTO) 2 % (0-10); HEMATOCRIT 41 % (40-54); HEMOGLOBIN 14.1 g/dL (13.3-17.7); LYMPHOCYTES # (AUTO) 1.7 10^3/uL (1.0-4.0); LYMPHOCYTES % (AUTO) 29 % (12-44); MEAN CORPUSCULAR HEMOGLOBIN 31 pg (25-34); MEAN CORPUSCULAR HGB CONC 35 g/dL (32-36); MEAN CORPUSCULAR VOLUME 90 fL (80-99); MEAN PLATELET VOLUME 10.6 fL (9.0-12.2); MONOCYTES # (AUTO) 0.5 10^3/uL (0.0-1.0); MONOCYTES % (AUTO) 8 % (0-12); NEUTROPHILS # (AUTO) 3.6 10^3/uL (1.8-7.8); NEUTROPHILS % (AUTO) 61 % (42-75); PLATELET COUNT 207 10^3/uL (130-400); WHITE BLOOD COUNT 5.9 10^3/uL (4.3-11.0)
[2021-08-13 10:21] LABS: BILIRUBIN,URINE NEGATIVE (NEGATIVE); CLARITY,URINE CLEAR; COLOR,URINE YELLOW; GLUCOSE, URINE (UA) NEGATIVE (NEGATIVE); KETONES,URINE NEGATIVE (NEGATIVE); LEUKOCYTE ESTERASE ,URINE NEGATIVE (NEGATIVE); NITRITE,URINE NEGATIVE (NEGATIVE); PROTEIN,URINE 2+ (NEGATIVE)
[2021-08-13 10:46] LABS: BACTERIA,URINE NEGATIVE /HPF; WBC,URINE RARE /HPF
[2021-08-13 10:47] LABS: CALCIUM OXALATE CRYSTALS,UR LARGE /LPF
[2021-08-13 11:00] LABS: ALBUMIN 3.9 GM/DL (3.2-4.5); BILIRUBIN,TOTAL 0.4 MG/DL (0.1-1.0); CALCIUM 9.1 MG/DL (8.5-10.1); CREATININE SERUM 0.99 MG/DL (0.60-1.30); POTASSIUM 4.6 MMOL/L (3.6-5.0); TOTAL PROTEIN 6.9 GM/DL (6.4-8.2)
[~2021-09-10 10:50] MED LIST changes: -CATHETER FLUSH 10 ML SYR IV PRN; +HEParin (CENTRAL IV FLUSH) 500 UNIT/5 ML SYR IV PRN; -HOLD METFORMIN - RECEIVED CONTRAST 20 ML VIAL IV SCH; -IOHEXOL 350 MG/ML 100 ML (OMNIPAQUE 350) VIAL IV ONE; +NIVOLUMAB 480 MG in NS (IVPB) 100 ML IV SCH; +NS (IVPB) 250 ML IV SCH; -NS 100 ML (IVPB) BAG IV ONE; +NS IV 500 ML 500 ML ONE
[2021-09-10 11:19] LABS: BASOPHILS % (AUTO) 0 % (0-10); EOSINOPHILS # (AUTO) 0.1 10^3/uL (0.0-0.3); EOSINOPHILS % (AUTO) 1 % (0-10); HEMATOCRIT 39 % (40-54); HEMOGLOBIN 13.6 g/dL (13.3-17.7); LYMPHOCYTES # (AUTO) 1.5 10^3/uL (1.0-4.0); LYMPHOCYTES % (AUTO) 33 % (12-44); MEAN CORPUSCULAR HEMOGLOBIN 31 pg (25-34); MEAN CORPUSCULAR HGB CONC 35 g/dL (32-36); MEAN CORPUSCULAR VOLUME 89 fL (80-99); MEAN PLATELET VOLUME 10.2 fL (9.0-12.2); MONOCYTES # (AUTO) 0.3 10^3/uL (0.0-1.0); MONOCYTES % (AUTO) 7 % (0-12); NEUTROPHILS # (AUTO) 2.7 10^3/uL (1.8-7.8); NEUTROPHILS % (AUTO) 58 % (42-75); PLATELET COUNT 207 10^3/uL (130-400); WHITE BLOOD COUNT 4.6 10^3/uL (4.3-11.0)
[2021-09-10 11:37] LABS: ALBUMIN 3.8 GM/DL (3.2-4.5); BILIRUBIN,TOTAL 0.4 MG/DL (0.1-1.0); CALCIUM 9.3 MG/DL (8.5-10.1); CREATININE SERUM 1.01 MG/DL (0.60-1.30); POTASSIUM 4.2 MMOL/L (3.6-5.0); TOTAL PROTEIN 6.5 GM/DL (6.4-8.2)
[2021-09-10 11:45] LABS: BILIRUBIN,URINE NEGATIVE (NEGATIVE); CLARITY,URINE CLEAR; COLOR,URINE YELLOW; GLUCOSE, URINE (UA) NEGATIVE (NEGATIVE); KETONES,URINE NEGATIVE (NEGATIVE); LEUKOCYTE ESTERASE ,URINE NEGATIVE (NEGATIVE); NITRITE,URINE NEGATIVE (NEGATIVE); PROTEIN,URINE 2+ (NEGATIVE)
[2021-09-10 12:09] LABS: BACTERIA,URINE NEGATIVE /HPF; HYALINE CASTS, URINE RARE /LPF; SQUAMOUS EPITHELIAL CELL,UR RARE /HPF; WBC,URINE 0-2 /HPF
== END 2021-09-11 | disposition home or self-care (01) ==
LOC: ONC 10:50
PROVIDERS: ATTEND Internal Medicine Hematology & Oncology
DX: Z51.11 Encounter for antineoplastic chemotherapy (principal); Z45.2 Encounter for adjustment and management of vascular access device; C64.2 Malignant neoplasm of left kidney, except renal pelvis; C79.51 Secondary malignant neoplasm of bone; C78.7 Secondary malignant neoplasm of liver and intrahepatic bile duct; I10 Essential (primary) hypertension
CPT/HCPCS: 80053; 81000; 84443; 85025; 93005; 96413; G0463; 36591

== ENCOUNTER 2021-10-08 09:57 | Outpatient (RCR) | payer MEDICARE, OTHER ==
[~2021-10-08 09:57] MED LIST changes: -NS (IVPB) 250 ML IV SCH; +NS IV 500 ML 500 ML IV SCH; -NS IV 500 ML 500 ML ONE
[2021-10-08 10:12] LABS: BILIRUBIN,URINE NEGATIVE (NEGATIVE); CLARITY,URINE CLEAR; COLOR,URINE YELLOW; GLUCOSE, URINE (UA) NEGATIVE (NEGATIVE); KETONES,URINE NEGATIVE (NEGATIVE); LEUKOCYTE ESTERASE ,URINE NEGATIVE (NEGATIVE); NITRITE,URINE NEGATIVE (NEGATIVE); PH,URINE 5.5 (5-9); PROTEIN,URINE 2+ (NEGATIVE)
[2021-10-08 10:19] LABS: AMORPHOUS SEDIMENT,UR FEW AMOR URATES /LPF; BACTERIA,URINE NEGATIVE /HPF; CALCIUM OXALATE CRYSTALS,UR MODERATE /LPF
[2021-10-08 10:30] LABS: BASOPHILS % (AUTO) 0 % (0-10); EOSINOPHILS # (AUTO) 0.1 10^3/uL (0.0-0.3); EOSINOPHILS % (AUTO) 1 % (0-10); HEMATOCRIT 39 % (40-54); HEMOGLOBIN 13.6 g/dL (13.3-17.7); LYMPHOCYTES # (AUTO) 1.6 10^3/uL (1.0-4.0); LYMPHOCYTES % (AUTO) 31 % (12-44); MEAN CORPUSCULAR HEMOGLOBIN 31 pg (25-34); MEAN CORPUSCULAR HGB CONC 35 g/dL (32-36); MEAN CORPUSCULAR VOLUME 90 fL (80-99); MONOCYTES # (AUTO) 0.4 10^3/uL (0.0-1.0); MONOCYTES % (AUTO) 9 % (0-12); NEUTROPHILS % (AUTO) 58 % (42-75); PLATELET COUNT 210 10^3/uL (130-400); WHITE BLOOD COUNT 5.2 10^3/uL (4.3-11.0)
[2021-10-08 11:00] LABS: ALBUMIN 3.8 GM/DL (3.2-4.5); BILIRUBIN,TOTAL 0.5 MG/DL (0.1-1.0); CALCIUM 8.9 MG/DL (8.5-10.1); CREATININE SERUM 1.17 MG/DL (0.60-1.30); POTASSIUM 4.3 MMOL/L (3.6-5.0); TOTAL PROTEIN 6.5 GM/DL (6.4-8.2)
== END 2021-10-12 | disposition home or self-care (01) ==
LOC: ONC 09:57
PROVIDERS: ATTEND Internal Medicine Hematology & Oncology
DX: Z51.11 Encounter for antineoplastic chemotherapy (principal); Z45.2 Encounter for adjustment and management of vascular access device; C64.2 Malignant neoplasm of left kidney, except renal pelvis; C79.51 Secondary malignant neoplasm of bone; C78.7 Secondary malignant neoplasm of liver and intrahepatic bile duct; I10 Essential (primary) hypertension
CPT/HCPCS: 80053; 81000; 84443; 85025; 93005; 96413; G0463; 36591

== ENCOUNTER 2021-11-05 10:54 | Outpatient (RCR) | payer MEDICARE, OTHER ==
[2021-11-05 11:24] LABS: BASOPHILS % (AUTO) 0 % (0-10); EOSINOPHILS % (AUTO) 1 % (0-10); HEMATOCRIT 39 % (40-54); HEMOGLOBIN 13.5 g/dL (13.3-17.7); LYMPHOCYTES # (AUTO) 1.5 10^3/uL (1.0-4.0); LYMPHOCYTES % (AUTO) 33 % (12-44); MEAN CORPUSCULAR HEMOGLOBIN 31 pg (25-34); MEAN CORPUSCULAR HGB CONC 35 g/dL (32-36); MEAN CORPUSCULAR VOLUME 89 fL (80-99); MEAN PLATELET VOLUME 9.8 fL (9.0-12.2); MONOCYTES # (AUTO) 0.4 10^3/uL (0.0-1.0); MONOCYTES % (AUTO) 8 % (0-12); NEUTROPHILS # (AUTO) 2.7 10^3/uL (1.8-7.8); NEUTROPHILS % (AUTO) 58 % (42-75); PLATELET COUNT 203 10^3/uL (130-400); WHITE BLOOD COUNT 4.7 10^3/uL (4.3-11.0)
[2021-11-05 11:42] LABS: BILIRUBIN,URINE NEGATIVE (NEGATIVE); CLARITY,URINE CLEAR; COLOR,URINE YELLOW; GLUCOSE, URINE (UA) NEGATIVE (NEGATIVE); KETONES,URINE NEGATIVE (NEGATIVE); LEUKOCYTE ESTERASE ,URINE NEGATIVE (NEGATIVE); NITRITE,URINE NEGATIVE (NEGATIVE); PH,URINE 6.5 (5-9); PROTEIN,URINE 1+ (NEGATIVE)
[2021-11-05 11:45] LABS: ALBUMIN 3.8 GM/DL (3.2-4.5); BILIRUBIN,TOTAL 0.5 MG/DL (0.1-1.0); CALCIUM 9.1 MG/DL (8.5-10.1); POTASSIUM 4.4 MMOL/L (3.6-5.0); TOTAL PROTEIN 6.4 GM/DL (6.4-8.2)
[2021-11-05 12:00] LABS: BACTERIA,URINE NEGATIVE /HPF
== END 2021-11-12 | disposition home or self-care (01) ==
LOC: ONC 10:54
PROVIDERS: ATTEND Internal Medicine Hematology & Oncology
DX: Z51.11 Encounter for antineoplastic chemotherapy (principal); Z45.2 Encounter for adjustment and management of vascular access device; C64.2 Malignant neoplasm of left kidney, except renal pelvis; C79.51 Secondary malignant neoplasm of bone; C78.7 Secondary malignant neoplasm of liver and intrahepatic bile duct; I10 Essential (primary) hypertension
CPT/HCPCS: 80053; 81000; 84443; 85025; 93005; 96413; G0463; 36591

== ENCOUNTER → 2021-11-26 | Outpatient (CLI) | payer MEDICARE, OTHER ==
[~2021-11-26] MED LIST changes: +CATHETER FLUSH 10 ML SYR IV PRN; -HEParin (CENTRAL IV FLUSH) 500 UNIT/5 ML SYR IV PRN; +HOLD METFORMIN - RECEIVED CONTRAST 20 ML VIAL IV SCH; +IOHEXOL 350 MG/ML 100 ML (OMNIPAQUE 350) VIAL IV ONE; -NIVOLUMAB 480 MG in NS (IVPB) 100 ML IV SCH; +NS 100 ML (IVPB) BAG IV ONE; -NS IV 500 ML 500 ML IV SCH
--- NOTE | 2021-11-26 12:37 | Diagnostic Imaging Report ---
PROCEDURE: CT chest, abdomen, and pelvis with contrast. TECHNIQUE: Multiple contiguous axial images were obtained through the chest, abdomen, and pelvis after the administration of intravenous contrast. Auto Exposure Controls were utilized during the CT exam to meet ALARA standards for radiation dose reduction. INDICATION: Kidney carcinoma. COMPARISON: Comparison is made with prior CT from 05/19/2021. FINDINGS: CT CHEST: No axillary lymphadenopathy is detected. No mediastinal or hilar lymphadenopathy is identified. The left subclavian line is located within a left-sided SVC. No pericardial or pleural fluid is identified. Parenchymal evaluation again demonstrates subcentimeter nodule in the right upper lobe, stable at 4 to 5 mm. No new masses are detected. IMPRESSION: Stable CT chest with contrast when compared with 05/19/2021. No thoracic lymphadenopathy or pulmonary metastatic disease is detected. CT ABDOMEN AND PELVIS: Low-attenuation lesions within the liver are again noted, consistent with cysts. The soft tissue mass in the region of the right cardiophrenic space appears stable at 3.1 x 1.9 cm compared with 3.1 x 2.2 cm. Gallbladder contains small stones. There is no biliary ductal dilatation. The pancreas and spleen are unremarkable. No adrenal mass is detected. Right kidney is unremarkable. The exophytic mass with punctate calcifications measures 5.0 cm AP x 4.8 cm transverse compared with 4.7 cm AP x 4.6 cm transverse on prior. Cephalocaudal measurement is approximately 5.7 cm compared with 6.0 cm on prior. Aorta is nonaneurysmal. No central retroperitoneal or mesenteric lymphadenopathy is identified. The small and large bowel loops are normal in caliber. There is no ascites. Bladder is decompressed. Prostate is unremarkable. No pelvic lymphadenopathy is seen. IMPRESSION: Stable CT of the abdomen and pelvis when compared with prior exam from 05/19/2021. Right cardiophrenic mass and the exophytic left renal mass appear to be stable. No new abnormalities detected. Dictated by: Dictated on workstation # [id number]
== END ==
LOC: RAD 10:49
PROVIDERS: ATTEND Internal Medicine Hematology & Oncology
DX: C64.2 Malignant neoplasm of left kidney, except renal pelvis (principal)
CPT/HCPCS: 71260; 74177

== ENCOUNTER 2021-12-03 10:51 | Outpatient (RCR) | payer MEDICARE, OTHER ==
[~2021-12-03 10:51] MED LIST changes: -CATHETER FLUSH 10 ML SYR IV PRN; +HEParin (CENTRAL IV FLUSH) 500 UNIT/5 ML SYR IV PRN; -HOLD METFORMIN - RECEIVED CONTRAST 20 ML VIAL IV SCH; -IOHEXOL 350 MG/ML 100 ML (OMNIPAQUE 350) VIAL IV ONE; +NIVOLUMAB 480 MG in NS (IVPB) 100 ML IV SCH; -NS 100 ML (IVPB) BAG IV ONE; +NS IV 500 ML 500 ML IV SCH
[2021-12-03 11:42] LABS: BASOPHILS % (AUTO) 0 % (0-10); EOSINOPHILS # (AUTO) 0.1 10^3/uL (0.0-0.3); EOSINOPHILS % (AUTO) 2 % (0-10); HEMATOCRIT 38 % (40-54); HEMOGLOBIN 13.3 g/dL (13.3-17.7); LYMPHOCYTES # (AUTO) 1.4 10^3/uL (1.0-4.0); LYMPHOCYTES % (AUTO) 30 % (12-44); MEAN CORPUSCULAR HEMOGLOBIN 31 pg (25-34); MEAN CORPUSCULAR HGB CONC 35 g/dL (32-36); MEAN CORPUSCULAR VOLUME 89 fL (80-99); MEAN PLATELET VOLUME 10.5 fL (9.0-12.2); MONOCYTES # (AUTO) 0.4 10^3/uL (0.0-1.0); MONOCYTES % (AUTO) 8 % (0-12); NEUTROPHILS # (AUTO) 2.9 10^3/uL (1.8-7.8); NEUTROPHILS % (AUTO) 60 % (42-75); PLATELET COUNT 201 10^3/uL (130-400); WHITE BLOOD COUNT 4.8 10^3/uL (4.3-11.0)
[2021-12-03 11:43] LABS: BILIRUBIN,URINE NEGATIVE (NEGATIVE); CLARITY,URINE CLEAR; COLOR,URINE YELLOW; GLUCOSE, URINE (UA) NEGATIVE (NEGATIVE); KETONES,URINE NEGATIVE (NEGATIVE); LEUKOCYTE ESTERASE ,URINE NEGATIVE (NEGATIVE); NITRITE,URINE NEGATIVE (NEGATIVE); PROTEIN,URINE 2+ (NEGATIVE)
[2021-12-03 11:50] LABS: BACTERIA,URINE NEGATIVE /HPF; CALCIUM OXALATE CRYSTALS,UR FEW /LPF; SQUAMOUS EPITHELIAL CELL,UR RARE /HPF; WBC,URINE RARE /HPF
[2021-12-03 12:00] LABS: ALBUMIN 3.5 GM/DL (3.2-4.5); BILIRUBIN,TOTAL 0.4 MG/DL (0.1-1.0); CALCIUM 8.8 MG/DL (8.5-10.1); CREATININE SERUM 0.99 MG/DL (0.60-1.30); POTASSIUM 3.9 MMOL/L (3.6-5.0); TOTAL PROTEIN 5.9 GM/DL (6.4-8.2)
[2021-12-03] MEDS ORDERED: NS (IVPB) 250 ML ONE (12:06)
== END 2021-12-12 | disposition home or self-care (01) ==
LOC: ONC 10:51
PROVIDERS: ATTEND Internal Medicine Hematology & Oncology
DX: Z51.11 Encounter for antineoplastic chemotherapy (principal); Z45.2 Encounter for adjustment and management of vascular access device; C64.2 Malignant neoplasm of left kidney, except renal pelvis; C79.51 Secondary malignant neoplasm of bone; C78.7 Secondary malignant neoplasm of liver and intrahepatic bile duct; I10 Essential (primary) hypertension; R91.8 Other nonspecific abnormal finding of lung field; K12.30 Oral mucositis (ulcerative), unspecified; R19.7 Diarrhea, unspecified; D64.9 Anemia, unspecified; E78.00 Pure hypercholesterolemia, unspecified
CPT/HCPCS: 80053; 81000; 84443; 85025; 93005; 96413; G0463; 36591

== ENCOUNTER 2022-01-08 10:28 | Outpatient (RCR) | payer MEDICARE, OTHER ==
[2022-01-08 11:29] LABS: BILIRUBIN,URINE NEGATIVE (NEGATIVE); CLARITY,URINE CLEAR; COLOR,URINE YELLOW; GLUCOSE, URINE (UA) NEGATIVE (NEGATIVE); KETONES,URINE NEGATIVE (NEGATIVE); LEUKOCYTE ESTERASE ,URINE NEGATIVE (NEGATIVE); NITRITE,URINE NEGATIVE (NEGATIVE); PH,URINE 5.5 (5-9); PROTEIN,URINE 2+ (NEGATIVE)
[2022-01-08 11:43] LABS: BASOPHILS % (AUTO) 1 % (0-10); EOSINOPHILS # (AUTO) 0.1 10^3/uL (0.0-0.3); EOSINOPHILS % (AUTO) 1 % (0-10); HEMATOCRIT 39 % (40-54); HEMOGLOBIN 13.8 g/dL (13.3-17.7); LYMPHOCYTES # (AUTO) 1.4 10^3/uL (1.0-4.0); LYMPHOCYTES % (AUTO) 26 % (12-44); MEAN CORPUSCULAR HEMOGLOBIN 32 pg (25-34); MEAN CORPUSCULAR HGB CONC 36 g/dL (32-36); MEAN CORPUSCULAR VOLUME 89 fL (80-99); MEAN PLATELET VOLUME 10.9 fL (9.0-12.2); MONOCYTES # (AUTO) 0.3 10^3/uL (0.0-1.0); MONOCYTES % (AUTO) 6 % (0-12); NEUTROPHILS # (AUTO) 3.6 10^3/uL (1.8-7.8); NEUTROPHILS % (AUTO) 67 % (42-75); PLATELET COUNT 182 10^3/uL (130-400); WHITE BLOOD COUNT 5.4 10^3/uL (4.3-11.0)
[2022-01-08 11:44] LABS: BACTERIA,URINE NEGATIVE /HPF; HYALINE CASTS, URINE 0-2 /LPF; RBC,URINE 0-2 /HPF; WBC,URINE 0-2 /HPF
[2022-01-08 11:55] LABS: ALBUMIN 3.6 GM/DL (3.2-4.5); BILIRUBIN,TOTAL 0.6 MG/DL (0.1-1.0); CALCIUM 8.9 MG/DL (8.5-10.1); POTASSIUM 3.9 MMOL/L (3.6-5.0); TOTAL PROTEIN 6.5 GM/DL (6.4-8.2)
== END 2022-01-12 | disposition home or self-care (01) ==
LOC: ONC 10:28
PROVIDERS: ATTEND Internal Medicine Hematology & Oncology
DX: Z51.11 Encounter for antineoplastic chemotherapy (principal); C64.2 Malignant neoplasm of left kidney, except renal pelvis; C79.51 Secondary malignant neoplasm of bone; C78.7 Secondary malignant neoplasm of liver and intrahepatic bile duct; I10 Essential (primary) hypertension; R91.8 Other nonspecific abnormal finding of lung field
CPT/HCPCS: 36591; 80053; 81000; 84443; 85025; 93005; 96413; 99213

== ENCOUNTER 2022-02-04 09:29 | Outpatient (RCR) | payer MEDICARE, OTHER ==
[2022-02-04] MEDS ORDERED: NS IV 500 ML 500 ML IV SCH (09:45)
[2022-02-04] MEDS ORDERED: HEParin (CENTRAL IV FLUSH) 500 UNIT/5 ML SYR IV PRN (09:45)
[2022-02-04] MEDS ORDERED: NIVOLUMAB 480 MG in NS (IVPB) 100 ML IV SCH (09:45)
[2022-02-04 09:57] LABS: BASOPHILS % (AUTO) 1 % (0-10); BILIRUBIN,URINE NEGATIVE (NEGATIVE); CLARITY,URINE CLEAR; COLOR,URINE YELLOW; EOSINOPHILS # (AUTO) 0.1 10^3/uL (0.0-0.3); EOSINOPHILS % (AUTO) 2 % (0-10); GLUCOSE, URINE (UA) NEGATIVE (NEGATIVE); HEMATOCRIT 38 % (40-54); HEMOGLOBIN 13.1 g/dL (13.3-17.7); KETONES,URINE NEGATIVE (NEGATIVE); LEUKOCYTE ESTERASE ,URINE NEGATIVE (NEGATIVE); LYMPHOCYTES # (AUTO) 1.6 10^3/uL (1.0-4.0); LYMPHOCYTES % (AUTO) 36 % (12-44); MEAN CORPUSCULAR HEMOGLOBIN 31 pg (25-34); MEAN CORPUSCULAR HGB CONC 35 g/dL (32-36); MEAN CORPUSCULAR VOLUME 90 fL (80-99); MEAN PLATELET VOLUME 10.4 fL (9.0-12.2); MONOCYTES # (AUTO) 0.4 10^3/uL (0.0-1.0); MONOCYTES % (AUTO) 8 % (0-12); NEUTROPHILS # (AUTO) 2.3 10^3/uL (1.8-7.8); NEUTROPHILS % (AUTO) 53 % (42-75); NITRITE,URINE NEGATIVE (NEGATIVE); PLATELET COUNT 197 10^3/uL (130-400); PROTEIN,URINE 2+ (NEGATIVE); WHITE BLOOD COUNT 4.3 10^3/uL (4.3-11.0)
[2022-02-04 10:07] LABS: BACTERIA,URINE NEGATIVE /HPF; CALCIUM OXALATE CRYSTALS,UR RARE /LPF; WBC,URINE RARE /HPF
[2022-02-04 10:26] LABS: ALBUMIN 3.6 GM/DL (3.2-4.5); BILIRUBIN,TOTAL 0.4 MG/DL (0.1-1.0); CALCIUM 8.9 MG/DL (8.5-10.1); CREATININE SERUM 1.22 MG/DL (0.60-1.30); POTASSIUM 4.2 MMOL/L (3.6-5.0); TOTAL PROTEIN 6.1 GM/DL (6.4-8.2)
== END 2022-02-11 | disposition home or self-care (01) ==
LOC: ONC 09:29
PROVIDERS: ATTEND Internal Medicine Hematology & Oncology
DX: Z51.11 Encounter for antineoplastic chemotherapy (principal); Z45.2 Encounter for adjustment and management of vascular access device; C64.2 Malignant neoplasm of left kidney, except renal pelvis; C79.51 Secondary malignant neoplasm of bone; C78.7 Secondary malignant neoplasm of liver and intrahepatic bile duct; I10 Essential (primary) hypertension; E78.00 Pure hypercholesterolemia, unspecified; E66.9 Obesity, unspecified; R91.8 Other nonspecific abnormal finding of lung field
CPT/HCPCS: 80053; 81000; 84443; 85025; 93005; 96413; G0463; 36591

== ENCOUNTER → 2022-02-24 | Outpatient (CLI) | payer MEDICARE, OTHER ==
[~2022-02-24] MED LIST changes: +CATHETER FLUSH 10 ML SYR IV PRN; -HEParin (CENTRAL IV FLUSH) 500 UNIT/5 ML SYR IV PRN; +HOLD METFORMIN - RECEIVED CONTRAST 20 ML VIAL IV SCH; +IOHEXOL 350 MG/ML 100 ML (OMNIPAQUE 350) VIAL IV ONE; -NIVOLUMAB 480 MG in NS (IVPB) 100 ML IV SCH; +NS 100 ML (IVPB) BAG IV ONE; -NS IV 500 ML 500 ML IV SCH
--- NOTE | 2022-02-24 14:50 | Diagnostic Imaging Report ---
PROCEDURE: CT chest, abdomen, and pelvis with contrast. TECHNIQUE: Multiple contiguous axial images were obtained through the chest, abdomen, and pelvis after the administration of intravenous contrast. Auto Exposure Controls were utilized during the CT exam to meet ALARA standards for radiation dose reduction. INDICATION: Malignant neoplasm of the left kidney, followup. Correlation is made to prior CT 11/26/2021. CT CHEST: No axillary lymphadenopathy is detected. No definite mediastinal or hilar lymphadenopathy is detected. There is no pericardial or pleural fluid identified. Cardiophrenic angle mass measures 3.2 x 2.0 cm compared with 3.1 x 1.9 cm on prior. A right upper lobe nodule is stable at 5 mm. No new pulmonary nodules are detected. IMPRESSION: Stable CT chest since exam from 11/26/2021. CT ABDOMEN AND PELVIS: Hepatic low-attenuation lesions are again noted and suggestive of cysts. Gallbladder contains small stones. No biliary ductal dilatation is seen. The pancreas and spleen are unremarkable. No adrenal mass is detected. Right kidney is unremarkable. The exophytic low-density mass with internal calcifications arising from the left kidney measures 4.97 m AP by 4.7 cm transverse by 5.3 cm cephalocaudal. This is stable. Aorta is nonaneurysmal. No central retroperitoneal or mesenteric lymphadenopathy is seen. The bowel loops are normal caliber. No pelvic lymphadenopathy is seen. There is no ascites. Bladder is decompressed. Prostate appears stable. Bony structures are nonacute. IMPRESSION: 1. Stable CT abdomen and pelvis since 11/26/2021. No lymphadenopathy or metastatic disease is seen. Left renal mass is stable. 2. Cholelithiasis. 3. Hepatic cysts. Dictated by: Dictated on workstation # [id number]
== END ==
LOC: RAD FS 11:25
PROVIDERS: ATTEND Internal Medicine Hematology & Oncology
DX: K80.20 Calculus of gallbladder without cholecystitis without obstruction (principal); K76.89 Other specified diseases of liver; C64.2 Malignant neoplasm of left kidney, except renal pelvis
CPT/HCPCS: 71260; 74177; Q9967

== ENCOUNTER 2022-03-04 13:00 | Outpatient (RCR) | payer MEDICARE, OTHER ==
[~2022-03-04 13:00] MED LIST changes: -CATHETER FLUSH 10 ML SYR IV PRN; +HEParin (CENTRAL IV FLUSH) 500 UNIT/5 ML SYR IV PRN; -HOLD METFORMIN - RECEIVED CONTRAST 20 ML VIAL IV SCH; -IOHEXOL 350 MG/ML 100 ML (OMNIPAQUE 350) VIAL IV ONE; +NIVOLUMAB 480 MG in NS (IVPB) 100 ML IV SCH; -NS 100 ML (IVPB) BAG IV ONE; +NS IV 500 ML 500 ML IV SCH
[2022-03-04 13:36] LABS: BASOPHILS % (AUTO) 0 % (0-10); EOSINOPHILS # (AUTO) 0.1 10^3/uL (0.0-0.3); EOSINOPHILS % (AUTO) 1 % (0-10); HEMATOCRIT 38 % (40-54); HEMOGLOBIN 13.2 g/dL (13.3-17.7); LYMPHOCYTES # (AUTO) 1.6 10^3/uL (1.0-4.0); LYMPHOCYTES % (AUTO) 31 % (12-44); MEAN CORPUSCULAR HEMOGLOBIN 31 pg (25-34); MEAN CORPUSCULAR HGB CONC 35 g/dL (32-36); MEAN CORPUSCULAR VOLUME 90 fL (80-99); MEAN PLATELET VOLUME 10.4 fL (9.0-12.2); MONOCYTES # (AUTO) 0.4 10^3/uL (0.0-1.0); MONOCYTES % (AUTO) 8 % (0-12); NEUTROPHILS # (AUTO) 3.2 10^3/uL (1.8-7.8); NEUTROPHILS % (AUTO) 60 % (42-75); PLATELET COUNT 243 10^3/uL (130-400); WHITE BLOOD COUNT 5.3 10^3/uL (4.3-11.0)
[2022-03-04 13:40] LABS: BILIRUBIN,URINE NEGATIVE (NEGATIVE); CLARITY,URINE CLEAR; COLOR,URINE YELLOW; GLUCOSE, URINE (UA) NEGATIVE (NEGATIVE); KETONES,URINE NEGATIVE (NEGATIVE); LEUKOCYTE ESTERASE ,URINE NEGATIVE (NEGATIVE); NITRITE,URINE NEGATIVE (NEGATIVE); PH,URINE 5.5 (5-9); PROTEIN,URINE 3+ (NEGATIVE)
[2022-03-04 13:51] LABS: BACTERIA,URINE NEGATIVE /HPF; CALCIUM OXALATE CRYSTALS,UR MODERATE /LPF; RBC,URINE RARE /HPF; WBC,URINE RARE /HPF
[2022-03-04 13:55] LABS: ALBUMIN 3.6 GM/DL (3.2-4.5); BILIRUBIN,TOTAL 0.3 MG/DL (0.1-1.0); CREATININE SERUM 1.11 MG/DL (0.60-1.30); TOTAL PROTEIN 6.4 GM/DL (6.4-8.2)
== END 2022-03-14 | disposition home or self-care (01) ==
LOC: ONC 13:00
PROVIDERS: ATTEND Internal Medicine Hematology & Oncology
DX: Z51.11 Encounter for antineoplastic chemotherapy (principal); Z45.2 Encounter for adjustment and management of vascular access device; C64.2 Malignant neoplasm of left kidney, except renal pelvis; C79.51 Secondary malignant neoplasm of bone; C78.7 Secondary malignant neoplasm of liver and intrahepatic bile duct; I10 Essential (primary) hypertension; E78.00 Pure hypercholesterolemia, unspecified; E66.9 Obesity, unspecified; R91.8 Other nonspecific abnormal finding of lung field
CPT/HCPCS: 80053; 81000; 84443; 85025; 93005; 96413; G0463; 36591

== ENCOUNTER 2022-04-02 09:59 | Outpatient (RCR) | payer MEDICARE, OTHER ==
[2022-04-02 10:18] LABS: BASOPHILS % (AUTO) 0 % (0-10); EOSINOPHILS # (AUTO) 0.1 10^3/uL (0.0-0.3); EOSINOPHILS % (AUTO) 1 % (0-10); HEMATOCRIT 39 % (40-54); HEMOGLOBIN 13.5 g/dL (13.3-17.7); LYMPHOCYTES # (AUTO) 1.5 10^3/uL (1.0-4.0); LYMPHOCYTES % (AUTO) 30 % (12-44); MEAN CORPUSCULAR HEMOGLOBIN 31 pg (25-34); MEAN CORPUSCULAR HGB CONC 35 g/dL (32-36); MEAN CORPUSCULAR VOLUME 89 fL (80-99); MEAN PLATELET VOLUME 10.3 fL (9.0-12.2); MONOCYTES # (AUTO) 0.3 10^3/uL (0.0-1.0); MONOCYTES % (AUTO) 6 % (0-12); NEUTROPHILS % (AUTO) 62 % (42-75); PLATELET COUNT 239 10^3/uL (130-400); WHITE BLOOD COUNT 4.9 10^3/uL (4.3-11.0)
[2022-04-02 10:26] LABS: BILIRUBIN,URINE NEGATIVE (NEGATIVE); CLARITY,URINE CLEAR; COLOR,URINE YELLOW; GLUCOSE, URINE (UA) NEGATIVE (NEGATIVE); KETONES,URINE NEGATIVE (NEGATIVE); LEUKOCYTE ESTERASE ,URINE NEGATIVE (NEGATIVE); NITRITE,URINE NEGATIVE (NEGATIVE); PH,URINE 5.5 (5-9); PROTEIN,URINE 2+ (NEGATIVE)
[2022-04-02 10:38] LABS: ALBUMIN 3.3 GM/DL (3.2-4.5); BILIRUBIN,TOTAL 0.4 MG/DL (0.1-1.0); CALCIUM 8.3 MG/DL (8.5-10.1); CREATININE SERUM 1.07 MG/DL (0.60-1.30); POTASSIUM 3.7 MMOL/L (3.6-5.0); TOTAL PROTEIN 5.9 GM/DL (6.4-8.2)
[2022-04-02] MEDS ORDERED: NS (IVPB) 250 ML ONE (10:56)
[2022-04-02 11:18] LABS: BACTERIA,URINE NEGATIVE /HPF; CALCIUM OXALATE CRYSTALS,UR MODERATE /LPF; HYALINE CASTS, URINE 0-2 /LPF; RBC,URINE 0-2 /HPF; SQUAMOUS EPITHELIAL CELL,UR 0-2 /HPF; WBC,URINE 0-2 /HPF
== END 2022-04-14 | disposition home or self-care (01) ==
LOC: ONC 09:59
PROVIDERS: ATTEND Internal Medicine Hematology & Oncology
DX: Z51.11 Encounter for antineoplastic chemotherapy (principal); Z45.2 Encounter for adjustment and management of vascular access device; C64.2 Malignant neoplasm of left kidney, except renal pelvis; C79.51 Secondary malignant neoplasm of bone; C78.7 Secondary malignant neoplasm of liver and intrahepatic bile duct; I10 Essential (primary) hypertension; E78.00 Pure hypercholesterolemia, unspecified; E66.9 Obesity, unspecified; R91.8 Other nonspecific abnormal finding of lung field
CPT/HCPCS: 80053; 81000; 84443; 85025; 93005; 96413; G0463; 36591

== ENCOUNTER 2022-04-30 10:11 | Outpatient (RCR) | payer MEDICARE, OTHER ==
[~2022-04-30 10:11] MED LIST changes: +NS (IVPB) 250 ML IV SCH
[2022-04-30 10:40] LABS: BILIRUBIN,URINE NEGATIVE (NEGATIVE); CLARITY,URINE CLEAR; COLOR,URINE YELLOW; GLUCOSE, URINE (UA) NEGATIVE (NEGATIVE); KETONES,URINE NEGATIVE (NEGATIVE); LEUKOCYTE ESTERASE ,URINE NEGATIVE (NEGATIVE); NITRITE,URINE NEGATIVE (NEGATIVE); PROTEIN,URINE 2+ (NEGATIVE)
[2022-04-30 10:45] LABS: BASOPHILS % (AUTO) 0 % (0-10); EOSINOPHILS # (AUTO) 0.1 10^3/uL (0.0-0.3); EOSINOPHILS % (AUTO) 1 % (0-10); HEMATOCRIT 38 % (40-54); HEMOGLOBIN 13.3 g/dL (13.3-17.7); LYMPHOCYTES # (AUTO) 1.7 10^3/uL (1.0-4.0); LYMPHOCYTES % (AUTO) 34 % (12-44); MEAN CORPUSCULAR HEMOGLOBIN 32 pg (25-34); MEAN CORPUSCULAR HGB CONC 35 g/dL (32-36); MEAN CORPUSCULAR VOLUME 90 fL (80-99); MEAN PLATELET VOLUME 10.5 fL (9.0-12.2); MONOCYTES # (AUTO) 0.3 10^3/uL (0.0-1.0); MONOCYTES % (AUTO) 6 % (0-12); NEUTROPHILS % (AUTO) 58 % (42-75); PLATELET COUNT 212 10^3/uL (130-400); WHITE BLOOD COUNT 5.1 10^3/uL (4.3-11.0)
[2022-04-30 11:03] LABS: ALBUMIN 3.4 GM/DL (3.2-4.5); BILIRUBIN,TOTAL 0.5 MG/DL (0.1-1.0); CREATININE SERUM 1.22 MG/DL (0.60-1.30); POTASSIUM 4.2 MMOL/L (3.6-5.0); TOTAL PROTEIN 5.9 GM/DL (6.4-8.2)
[2022-04-30 11:17] LABS: WBC,URINE 0-2 /HPF
[2022-04-30 11:18] LABS: BACTERIA,URINE TRACE /HPF; CALCIUM OXALATE CRYSTALS,UR FEW /LPF; SQUAMOUS EPITHELIAL CELL,UR RARE /HPF
== END 2022-05-12 | disposition home or self-care (01) ==
LOC: ONC 10:11
PROVIDERS: ATTEND Internal Medicine Hematology & Oncology
DX: Z51.11 Encounter for antineoplastic chemotherapy (principal); Z45.2 Encounter for adjustment and management of vascular access device; C64.2 Malignant neoplasm of left kidney, except renal pelvis; C79.51 Secondary malignant neoplasm of bone; C78.7 Secondary malignant neoplasm of liver and intrahepatic bile duct; I10 Essential (primary) hypertension; E78.00 Pure hypercholesterolemia, unspecified; E66.9 Obesity, unspecified; R91.8 Other nonspecific abnormal finding of lung field
CPT/HCPCS: 36591; 80053; 81000; 85025; 93005; 96413

== ENCOUNTER → 2022-05-26 | Outpatient (CLI) | payer MEDICARE, OTHER ==
[~2022-05-26] MED LIST changes: -HEParin (CENTRAL IV FLUSH) 500 UNIT/5 ML SYR IV PRN; +HOLD METFORMIN - RECEIVED CONTRAST 20 ML VIAL IV SCH; +IOHEXOL 350 MG/ML 100 ML (OMNIPAQUE 350) VIAL IV ONE; -NIVOLUMAB 480 MG in NS (IVPB) 100 ML IV SCH; -NS (IVPB) 250 ML IV SCH; +NS 100 ML (IVPB) BAG IV ONE; -NS IV 500 ML 500 ML IV SCH
--- NOTE | 2022-05-26 11:01 | Diagnostic Imaging Report ---
EXAMINATION: CT chest, abdomen and pelvis with intravenous contrast. TECHNIQUE: Multiple contiguous axial images were obtained through the chest, abdomen and pelvis after the uneventful administration of intravenous contrast. All CT scans use one or more of the following dose optimizing techniques: automated exposure control, MA and/or KvP adjustment based on patient size and exam type or iterative reconstruction. HISTORY: Renal cancer. COMPARISON: 02/24/2022 FINDINGS: There is no edema or pneumonia. There is a small right pleural effusion. No pneumothorax. No suspicious nodules. There is no axillary or supraclavicular lymphadenopathy. There is no mediastinal lymphadenopathy. A 3.2 x 2.0 cm right pericardiophrenic angle cyst is unchanged likely representing a pericardial cyst. A left subclavian port catheter tip is within a persistent left-sided superior vena cava. Heart size is normal. There are mild coronary artery calcifications. No pericardial effusion. Aorta is normal in caliber. There are unchanged cysts in the liver. No suspicious liver lesion. There is no biliary ductal dilation. Stones are present in the gallbladder. No wall thickening or pericholecystic fluid. Pancreas is normal. Spleen is normal. Adrenal glands are normal. There is an unchanged partially calcified mass in the left kidney measuring 4.1 x 4.0 cm, previously 4.0 x 4.2 cm. No new renal lesion is seen. There is no hydronephrosis. Urinary bladder is normal. Bowel is normal in caliber without obstruction or inflammation. No free fluid or air. No abdominal or pelvic lymphadenopathy. Aorta is normal in caliber without aneurysm. There are no suspicious osseous lesions. IMPRESSION: 1. Unchanged left renal mass. No metastatic disease is seen. Dictated by: Dictated on workstation # [id number]
== END ==
LOC: RAD 10:04
PROVIDERS: ATTEND Internal Medicine Hematology & Oncology
DX: N28.89 Other specified disorders of kidney and ureter (principal); C64.2 Malignant neoplasm of left kidney, except renal pelvis
CPT/HCPCS: 71260; 74177

== ENCOUNTER 2022-05-28 09:59 | Outpatient (RCR) | payer MEDICARE, OTHER ==
[~2022-05-28 09:59] MED LIST changes: +HEParin (CENTRAL IV FLUSH) 500 UNIT/5 ML SYR IV PRN; -HOLD METFORMIN - RECEIVED CONTRAST 20 ML VIAL IV SCH; -IOHEXOL 350 MG/ML 100 ML (OMNIPAQUE 350) VIAL IV ONE; +NIVOLUMAB 480 MG in NS (IVPB) 100 ML IV SCH; +NS (IVPB) 250 ML IV SCH; -NS 100 ML (IVPB) BAG IV ONE; +NS IV 500 ML 500 ML IV SCH
[2022-05-28 10:21] LABS: BASOPHILS % (AUTO) 1 % (0-10); EOSINOPHILS # (AUTO) 0.1 10^3/uL (0.0-0.3); EOSINOPHILS % (AUTO) 2 % (0-10); HEMATOCRIT 37 % (40-54); LYMPHOCYTES # (AUTO) 1.7 10^3/uL (1.0-4.0); LYMPHOCYTES % (AUTO) 31 % (12-44); MEAN CORPUSCULAR HEMOGLOBIN 32 pg (25-34); MEAN CORPUSCULAR HGB CONC 35 g/dL (32-36); MEAN CORPUSCULAR VOLUME 90 fL (80-99); MEAN PLATELET VOLUME 10.5 fL (9.0-12.2); MONOCYTES # (AUTO) 0.4 10^3/uL (0.0-1.0); MONOCYTES % (AUTO) 6 % (0-12); NEUTROPHILS # (AUTO) 3.3 10^3/uL (1.8-7.8); NEUTROPHILS % (AUTO) 61 % (42-75); PLATELET COUNT 216 10^3/uL (130-400); WHITE BLOOD COUNT 5.5 10^3/uL (4.3-11.0)
[2022-05-28 10:23] LABS: BILIRUBIN,URINE NEGATIVE (NEGATIVE); CLARITY,URINE CLEAR; COLOR,URINE YELLOW; GLUCOSE, URINE (UA) TRACE (NEGATIVE); KETONES,URINE NEGATIVE (NEGATIVE); LEUKOCYTE ESTERASE ,URINE NEGATIVE (NEGATIVE); NITRITE,URINE NEGATIVE (NEGATIVE); PROTEIN,URINE 3+ (NEGATIVE)
[2022-05-28 10:33] LABS: AMORPHOUS SEDIMENT,UR RARE AMOR URATES /LPF; BACTERIA,URINE NEGATIVE /HPF; HYALINE CASTS, URINE 0-2 /LPF; WBC,URINE 0-2 /HPF
[2022-05-28 10:39] LABS: ALBUMIN 3.4 GM/DL (3.2-4.5); BILIRUBIN,TOTAL 0.5 MG/DL (0.1-1.0); CALCIUM 8.8 MG/DL (8.5-10.1); POTASSIUM 4.1 MMOL/L (3.6-5.0); TOTAL PROTEIN 5.9 GM/DL (6.4-8.2)
== END 2022-06-12 | disposition home or self-care (01) ==
LOC: ONC 09:59
PROVIDERS: ATTEND Internal Medicine Hematology & Oncology
DX: Z51.11 Encounter for antineoplastic chemotherapy (principal); Z45.2 Encounter for adjustment and management of vascular access device; C64.2 Malignant neoplasm of left kidney, except renal pelvis; C79.51 Secondary malignant neoplasm of bone; C78.7 Secondary malignant neoplasm of liver and intrahepatic bile duct; I10 Essential (primary) hypertension; E78.00 Pure hypercholesterolemia, unspecified; E66.9 Obesity, unspecified; R91.8 Other nonspecific abnormal finding of lung field
CPT/HCPCS: 36591; 80053; 81000; 84443; 85025; 93005; 96413

== ENCOUNTER 2022-06-25 10:34 | Outpatient (RCR) | payer MEDICARE, OTHER ==
[2022-06-25 10:57] LABS: BILIRUBIN,URINE NEGATIVE (NEGATIVE); CLARITY,URINE CLEAR; COLOR,URINE YELLOW; GLUCOSE, URINE (UA) NEGATIVE (NEGATIVE); KETONES,URINE NEGATIVE (NEGATIVE); LEUKOCYTE ESTERASE ,URINE NEGATIVE (NEGATIVE); NITRITE,URINE NEGATIVE (NEGATIVE); PROTEIN,URINE 3+ (NEGATIVE)
[2022-06-25 11:00] LABS: BASOPHILS % (AUTO) 1 % (0-10); EOSINOPHILS # (AUTO) 0.1 10^3/uL (0.0-0.3); EOSINOPHILS % (AUTO) 2 % (0-10); HEMATOCRIT 38 % (40-54); HEMOGLOBIN 13.5 g/dL (13.3-17.7); LYMPHOCYTES # (AUTO) 1.7 10^3/uL (1.0-4.0); LYMPHOCYTES % (AUTO) 31 % (12-44); MEAN CORPUSCULAR HEMOGLOBIN 31 pg (25-34); MEAN CORPUSCULAR HGB CONC 35 g/dL (32-36); MEAN CORPUSCULAR VOLUME 88 fL (80-99); MEAN PLATELET VOLUME 10.4 fL (9.0-12.2); MONOCYTES # (AUTO) 0.4 10^3/uL (0.0-1.0); MONOCYTES % (AUTO) 8 % (0-12); NEUTROPHILS # (AUTO) 3.1 10^3/uL (1.8-7.8); NEUTROPHILS % (AUTO) 58 % (42-75); PLATELET COUNT 234 10^3/uL (130-400); WHITE BLOOD COUNT 5.4 10^3/uL (4.3-11.0)
[2022-06-25 11:15] LABS: ALBUMIN 3.5 GM/DL (3.2-4.5); BILIRUBIN,TOTAL 0.4 MG/DL (0.1-1.0); CALCIUM 8.9 MG/DL (8.5-10.1); CREATININE SERUM 1.15 MG/DL (0.60-1.30); POTASSIUM 4.1 MMOL/L (3.6-5.0); TOTAL PROTEIN 6.2 GM/DL (6.4-8.2)
[2022-06-25 11:16] LABS: BACTERIA,URINE NEGATIVE /HPF; RBC,URINE RARE /HPF; SQUAMOUS EPITHELIAL CELL,UR RARE /HPF; WBC,URINE RARE /HPF
[2022-06-25 11:17] LABS: AMORPHOUS SEDIMENT,UR RARE AMOR URATES /LPF; HYALINE CASTS, URINE RARE /LPF
== END 2022-07-12 | disposition home or self-care (01) ==
LOC: ONC 10:34
PROVIDERS: ATTEND Internal Medicine Hematology & Oncology
DX: Z51.11 Encounter for antineoplastic chemotherapy (principal); Z45.2 Encounter for adjustment and management of vascular access device; C64.2 Malignant neoplasm of left kidney, except renal pelvis; C79.51 Secondary malignant neoplasm of bone; C78.7 Secondary malignant neoplasm of liver and intrahepatic bile duct; I10 Essential (primary) hypertension; E78.00 Pure hypercholesterolemia, unspecified; E66.9 Obesity, unspecified; R91.8 Other nonspecific abnormal finding of lung field; E03.9 Hypothyroidism, unspecified; D64.9 Anemia, unspecified; J06.9 Acute upper respiratory infection, unspecified
CPT/HCPCS: 36591; 80053; 81000; 84443; 85025; 93005; 96413

== ENCOUNTER 2022-07-23 07:38 | Outpatient (RCR) | payer MEDICARE, OTHER ==
[~2022-07-23 07:38] MED LIST changes: -HEParin (CENTRAL IV FLUSH) 500 UNIT/5 ML SYR IV PRN; -NIVOLUMAB 480 MG in NS (IVPB) 100 ML IV SCH; -NS (IVPB) 250 ML IV SCH; -NS IV 500 ML 500 ML IV SCH
[2022-07-23] MEDS ORDERED: NS IV 500 ML 500 ML IV SCH (08:22)
[2022-07-23] MEDS ORDERED: HEParin (CENTRAL IV FLUSH) 500 UNIT/5 ML SYR IV PRN (08:22)
[2022-07-23] MEDS ORDERED: NIVOLUMAB 480 MG in NS (IVPB) 100 ML IV SCH (08:22)
[2022-07-23] MEDS ORDERED: NS (IVPB) 250 ML IV SCH (08:22)
[2022-07-23 10:14] LABS: BASOPHILS % (AUTO) 1 % (0-10); EOSINOPHILS # (AUTO) 0.1 10^3/uL (0.0-0.3); EOSINOPHILS % (AUTO) 2 % (0-10); HEMATOCRIT 39 % (40-54); HEMOGLOBIN 13.2 g/dL (13.3-17.7); LYMPHOCYTES # (AUTO) 1.9 10^3/uL (1.0-4.0); LYMPHOCYTES % (AUTO) 33 % (12-44); MEAN CORPUSCULAR HEMOGLOBIN 31 pg (25-34); MEAN CORPUSCULAR HGB CONC 34 g/dL (32-36); MEAN CORPUSCULAR VOLUME 91 fL (80-99); MEAN PLATELET VOLUME 10.4 fL (9.0-12.2); MONOCYTES # (AUTO) 0.4 10^3/uL (0.0-1.0); MONOCYTES % (AUTO) 7 % (0-12); NEUTROPHILS # (AUTO) 3.4 10^3/uL (1.8-7.8); NEUTROPHILS % (AUTO) 58 % (42-75); PLATELET COUNT 228 10^3/uL (130-400); WHITE BLOOD COUNT 5.8 10^3/uL (4.3-11.0)
[2022-07-23 10:19] LABS: BILIRUBIN,URINE NEGATIVE (NEGATIVE); CLARITY,URINE CLEAR; COLOR,URINE YELLOW; GLUCOSE, URINE (UA) NEGATIVE (NEGATIVE); KETONES,URINE NEGATIVE (NEGATIVE); LEUKOCYTE ESTERASE ,URINE NEGATIVE (NEGATIVE); NITRITE,URINE NEGATIVE (NEGATIVE); PROTEIN,URINE 3+ (NEGATIVE)
[2022-07-23 10:27] LABS: BACTERIA,URINE TRACE /HPF; SQUAMOUS EPITHELIAL CELL,UR RARE /HPF; WBC,URINE RARE /HPF
[2022-07-23 10:38] LABS: ALBUMIN 3.4 GM/DL (3.2-4.5); BILIRUBIN,TOTAL 0.4 MG/DL (0.1-1.0); CALCIUM 8.5 MG/DL (8.5-10.1); CREATININE SERUM 1.14 MG/DL (0.60-1.30); POTASSIUM 4.3 MMOL/L (3.6-5.0); TOTAL PROTEIN 5.8 GM/DL (6.4-8.2)
== END 2022-08-12 | disposition home or self-care (01) ==
LOC: ONC 07:38
PROVIDERS: ATTEND Internal Medicine Hematology & Oncology
DX: Z51.11 Encounter for antineoplastic chemotherapy (principal); Z45.2 Encounter for adjustment and management of vascular access device; C64.2 Malignant neoplasm of left kidney, except renal pelvis; C79.51 Secondary malignant neoplasm of bone; C78.7 Secondary malignant neoplasm of liver and intrahepatic bile duct; I10 Essential (primary) hypertension; E78.00 Pure hypercholesterolemia, unspecified; E66.9 Obesity, unspecified; R91.8 Other nonspecific abnormal finding of lung field; E03.9 Hypothyroidism, unspecified; D64.9 Anemia, unspecified; J06.9 Acute upper respiratory infection, unspecified
CPT/HCPCS: 36591; 80053; 81000; 84443; 85025; 93005; 96413

== ENCOUNTER 2022-08-20 10:40 | Outpatient (RCR) | payer MEDICARE, OTHER ==
[~2022-08-20] VITALS: Ht 177.8 cm; Wt 100.5 kg
[~2022-08-20 10:40] MED LIST changes: +HEParin (CENTRAL IV FLUSH) 500 UNIT/5 ML SYR IV PRN; +NIVOLUMAB 480 MG in NS (IVPB) 100 ML IV SCH; +NS (IVPB) 250 ML IV SCH; +NS IV 500 ML 500 ML IV SCH
[2022-08-20 11:04] LABS: BILIRUBIN,URINE NEGATIVE (NEGATIVE); CLARITY,URINE CLEAR; COLOR,URINE YELLOW; GLUCOSE, URINE (UA) NEGATIVE (NEGATIVE); KETONES,URINE NEGATIVE (NEGATIVE); LEUKOCYTE ESTERASE ,URINE NEGATIVE (NEGATIVE); NITRITE,URINE NEGATIVE (NEGATIVE); PH,URINE 5.5 (5-9); PROTEIN,URINE 3+ (NEGATIVE)
[2022-08-20 11:12] LABS: BASOPHILS % (AUTO) 1 % (0-10); EOSINOPHILS # (AUTO) 0.1 10^3/uL (0.0-0.3); EOSINOPHILS % (AUTO) 1 % (0-10); HEMATOCRIT 40 % (40-54); HEMOGLOBIN 13.9 g/dL (13.3-17.7); LYMPHOCYTES # (AUTO) 1.8 10^3/uL (1.0-4.0); LYMPHOCYTES % (AUTO) 31 % (12-44); MEAN CORPUSCULAR HEMOGLOBIN 31 pg (25-34); MEAN CORPUSCULAR HGB CONC 35 g/dL (32-36); MEAN CORPUSCULAR VOLUME 90 fL (80-99); MEAN PLATELET VOLUME 10.8 fL (9.0-12.2); MONOCYTES # (AUTO) 0.4 10^3/uL (0.0-1.0); MONOCYTES % (AUTO) 7 % (0-12); NEUTROPHILS # (AUTO) 3.4 10^3/uL (1.8-7.8); NEUTROPHILS % (AUTO) 60 % (42-75); PLATELET COUNT 204 10^3/uL (130-400); WHITE BLOOD COUNT 5.6 10^3/uL (4.3-11.0)
[2022-08-20 11:19] LABS: BACTERIA,URINE TRACE /HPF; CALCIUM OXALATE CRYSTALS,UR RARE /LPF; RBC,URINE RARE /HPF; SQUAMOUS EPITHELIAL CELL,UR RARE /HPF
[2022-08-20 11:20] LABS: HYALINE CASTS, URINE 0-2 /LPF
[2022-08-20 11:22] LABS: WBC,URINE RARE /HPF
[2022-08-20 11:33] LABS: ALBUMIN 3.7 GM/DL (3.2-4.5); BILIRUBIN,TOTAL 0.4 MG/DL (0.1-1.0); CREATININE SERUM 1.47 MG/DL (0.60-1.30); POTASSIUM 4.3 MMOL/L (3.6-5.0); TOTAL PROTEIN 6.4 GM/DL (6.4-8.2)
[2022-08-20 11:45] VITALS: BP 152/84
== END 2022-09-11 | disposition home or self-care (01) ==
LOC: ONC 10:40
PROVIDERS: ATTEND Internal Medicine Hematology & Oncology
DX: Z51.11 Encounter for antineoplastic chemotherapy (principal); Z45.2 Encounter for adjustment and management of vascular access device; C64.2 Malignant neoplasm of left kidney, except renal pelvis; C79.51 Secondary malignant neoplasm of bone; C78.7 Secondary malignant neoplasm of liver and intrahepatic bile duct; I10 Essential (primary) hypertension; E78.00 Pure hypercholesterolemia, unspecified; E66.9 Obesity, unspecified; R91.8 Other nonspecific abnormal finding of lung field; E03.9 Hypothyroidism, unspecified; D64.9 Anemia, unspecified; J06.9 Acute upper respiratory infection, unspecified
CPT/HCPCS: 36591; 80053; 81000; 84443; 85025; 93005; 96413

== ENCOUNTER → 2022-08-28 | Outpatient (CLI) | payer MEDICARE, OTHER ==
[~2022-08-28] MED LIST changes: -HEParin (CENTRAL IV FLUSH) 500 UNIT/5 ML SYR IV PRN; +IOHEXOL 350 MG/ML 100 ML (OMNIPAQUE 350) VIAL IV ONE; -NIVOLUMAB 480 MG in NS (IVPB) 100 ML IV SCH; -NS (IVPB) 250 ML IV SCH; +NS 100 ML (IVPB) BAG IV ONE; -NS IV 500 ML 500 ML IV SCH
--- NOTE | 2022-08-28 11:15 | Diagnostic Imaging Report ---
PROCEDURE: CT chest, abdomen, and pelvis with contrast. TECHNIQUE: Multiple contiguous axial images were obtained through the chest, abdomen, and pelvis after the administration of intravenous contrast. Auto Exposure Controls were utilized during the CT exam to meet ALARA standards for radiation dose reduction. 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 Correlation is made with prior CT from 05/26/2022. CT CHEST: Left-sided line in the persistent left-sided SVC is again noted. No axillary lymphadenopathy is detected. No mediastinal or hilar lymphadenopathy is detected. There is no pericardial fluid. There is a very small right pleural effusion, similar to prior exam. No pulmonary infiltrates, nodules or masses are identified. Bony structures appear nonacute. There is a partially healed right-sided lateral 6th rib fracture. The soft tissue nodule in the right cardiophrenic region appears to be stable. CT abdomen and pelvis: Numerous low-attenuation lesions within the liver noted consistent with cysts. The gallbladder contains small stones. There is no biliary ductal dilatation. The pancreas and spleen are unremarkable. No adrenal mass is identified. The right kidney is unremarkable. Low-attenuation exophytic mass arising from the left kidney is again noted, measuring 4.6 x 4.4 cm, stable. There are numerous calcifications within the lesion. No new mass is identified. There is no hydronephrosis. There is a small nonobstructing calculus in the left kidney. Aorta is nonaneurysmal. No central retroperitoneal or mesenteric lymphadenopathy is identified. No iliac or inguinal lymphadenopathy is detected. The bladder and prostate are unremarkable. Bowel loops are normal caliber. Bony structures are nonacute. IMPRESSION: 1. Overall stable CT of the chest, abdomen and pelvis when compared with prior study from 05/26/2022. Small right effusion is stable. No new or enlarging masses are identified. Left renal mass remains stable. Dictated by: Dictated on workstation # [id number]
== END ==
LOC: RAD 09:45
PROVIDERS: ATTEND Internal Medicine Hematology & Oncology
DX: C64.2 Malignant neoplasm of left kidney, except renal pelvis (principal); J90 Pleural effusion, not elsewhere classified
CPT/HCPCS: 71260; 74177

== ENCOUNTER 2022-09-17 10:33 | Outpatient (RCR) | payer MEDICARE, OTHER ==
[~2022-09-17] VITALS: Ht 177.8 cm; Wt 103.6 kg
[~2022-09-17 10:33] MED LIST changes: +HEParin (CENTRAL IV FLUSH) 500 UNIT/5 ML SYR IV PRN; -IOHEXOL 350 MG/ML 100 ML (OMNIPAQUE 350) VIAL IV ONE; +NIVOLUMAB 480 MG in NS (IVPB) 100 ML 100 ML IV SCH; +NS (IVPB) 250 ML 250 ML IV SCH; -NS 100 ML (IVPB) BAG IV ONE; +NS IV 500 ML 500 ML IV SCH
[2022-09-17 10:54] LABS: BILIRUBIN,URINE NEGATIVE (NEGATIVE); CLARITY,URINE CLEAR; COLOR,URINE YELLOW; GLUCOSE, URINE (UA) NEGATIVE (NEGATIVE); KETONES,URINE NEGATIVE (NEGATIVE); LEUKOCYTE ESTERASE ,URINE NEGATIVE (NEGATIVE); NITRITE,URINE NEGATIVE (NEGATIVE); PH,URINE 5.5 (5-9); PROTEIN,URINE 3+ (NEGATIVE)
[2022-09-17 11:04] LABS: BASOPHILS % (AUTO) 1 % (0-10); EOSINOPHILS % (AUTO) 1 % (0-10); HEMATOCRIT 39 % (40-54); HEMOGLOBIN 12.9 g/dL (13.3-17.7); LYMPHOCYTES # (AUTO) 1.4 10^3/uL (1.0-4.0); LYMPHOCYTES % (AUTO) 29 % (12-44); MEAN CORPUSCULAR HEMOGLOBIN 31 pg (25-34); MEAN CORPUSCULAR HGB CONC 34 g/dL (32-36); MEAN CORPUSCULAR VOLUME 92 fL (80-99); MEAN PLATELET VOLUME 10.3 fL (9.0-12.2); MONOCYTES # (AUTO) 0.3 10^3/uL (0.0-1.0); MONOCYTES % (AUTO) 7 % (0-12); NEUTROPHILS # (AUTO) 3.1 10^3/uL (1.8-7.8); NEUTROPHILS % (AUTO) 63 % (42-75); PLATELET COUNT 193 10^3/uL (130-400); WHITE BLOOD COUNT 4.9 10^3/uL (4.3-11.0)
[2022-09-17 11:07] LABS: AMORPHOUS SEDIMENT,UR FEW AMOR URATES /LPF; BACTERIA,URINE NEGATIVE /HPF; GRANULAR CASTS,URINE 0-2 /LPF; HYALINE CASTS, URINE 0-2 /LPF; RBC,URINE 0-2 /HPF; WBC,URINE 0-2 /HPF; WHITE BLOOD CELL CASTS, URINE RARE /LPF
[2022-09-17 11:25] LABS: ALBUMIN 3.4 GM/DL (3.2-4.5); BILIRUBIN,TOTAL 0.4 MG/DL (0.1-1.0); CALCIUM 8.8 MG/DL (8.5-10.1); CREATININE SERUM 1.15 MG/DL (0.60-1.30); POTASSIUM 4.4 MMOL/L (3.6-5.0); TOTAL PROTEIN 5.7 GM/DL (6.4-8.2)
[2022-09-17 11:48] VITALS: BP 162/92
[2022-09-17 11:55] VITALS: BP 162/92
== END 2022-10-12 | disposition home or self-care (01) ==
LOC: ONC 10:33
PROVIDERS: ATTEND Internal Medicine Hematology & Oncology
DX: Z51.11 Encounter for antineoplastic chemotherapy (principal); Z45.2 Encounter for adjustment and management of vascular access device; C64.2 Malignant neoplasm of left kidney, except renal pelvis; C79.51 Secondary malignant neoplasm of bone; C78.7 Secondary malignant neoplasm of liver and intrahepatic bile duct; I10 Essential (primary) hypertension; E78.00 Pure hypercholesterolemia, unspecified; E66.9 Obesity, unspecified; R91.8 Other nonspecific abnormal finding of lung field; E03.9 Hypothyroidism, unspecified; D64.9 Anemia, unspecified; J06.9 Acute upper respiratory infection, unspecified
CPT/HCPCS: 36591; 80053; 81000; 84443; 85025; 93005; 96413

== ENCOUNTER 2022-11-11 07:48 | Outpatient (RCR) | payer MEDICARE, OTHER ==
[2022-10-15 10:32] LABS: BASOPHILS % (AUTO) 0 % (0-10); EOSINOPHILS % (AUTO) 1 % (0-10); HEMATOCRIT 37 % (40-54); HEMOGLOBIN 12.7 g/dL (13.3-17.7); LYMPHOCYTES # (AUTO) 1.3 10^3/uL (1.0-4.0); LYMPHOCYTES % (AUTO) 28 % (12-44); MEAN CORPUSCULAR HEMOGLOBIN 32 pg (25-34); MEAN CORPUSCULAR HGB CONC 34 g/dL (32-36); MEAN CORPUSCULAR VOLUME 92 fL (80-99); MEAN PLATELET VOLUME 10.5 fL (9.0-12.2); MONOCYTES # (AUTO) 0.5 10^3/uL (0.0-1.0); MONOCYTES % (AUTO) 9 % (0-12); NEUTROPHILS % (AUTO) 62 % (42-75); PLATELET COUNT 191 10^3/uL (130-400); WHITE BLOOD COUNT 4.8 10^3/uL (4.3-11.0)
[2022-10-15 10:41] LABS: ALBUMIN 3.3 GM/DL (3.2-4.5); POTASSIUM 4.2 MMOL/L (3.6-5.0)
[2022-10-15 10:42] LABS: CALCIUM 8.9 MG/DL (8.5-10.1)
[2022-10-15 10:44] LABS: TOTAL PROTEIN 5.9 GM/DL (6.4-8.2)
[2022-10-15 10:45] LABS: BILIRUBIN,TOTAL 0.4 MG/DL (0.1-1.0)
[2022-10-15 10:47] LABS: CLARITY,URINE CLEAR; COLOR,URINE YELLOW; CREATININE SERUM 1.15 MG/DL (0.60-1.30); GLUCOSE, URINE (UA) NEGATIVE (NEGATIVE); KETONES,URINE NEGATIVE (NEGATIVE); PH,URINE 6.5 (5-9); PROTEIN,URINE 4+ (NEGATIVE)
[2022-10-15 10:48] LABS: BACTERIA,URINE TRACE /HPF; BILIRUBIN,URINE NEGATIVE (NEGATIVE); LEUKOCYTE ESTERASE ,URINE NEGATIVE (NEGATIVE); NITRITE,URINE NEGATIVE (NEGATIVE); RBC,URINE 0-2 /HPF
[2022-10-15 10:49] LABS: SQUAMOUS EPITHELIAL CELL,UR RARE /HPF
[2022-10-15 10:58] VITALS: BP 152/82
[2022-10-15] MEDS: NIVOLUMAB 480 MG in NS (IVPB) 100 ML 100 ML IV SCH (11:04)
[~2022-11-11] VITALS: Ht 177.8 cm; Wt 105.9 kg
[~2022-11-11 07:48] MED LIST changes: -NIVOLUMAB 480 MG in NS (IVPB) 100 ML 100 ML IV SCH
[2022-11-11] MEDS ORDERED: NIVOLUMAB 480 MG in NS (IVPB) 100 ML 100 ML IV SCH (09:42)
[2022-11-11] MEDS ORDERED: HEParin (CENTRAL IV FLUSH) 500 UNIT/5 ML SYR IV PRN (09:42)
[2022-11-11] MEDS ORDERED: NS IV 500 ML 500 ML IV SCH (09:42)
[2022-11-11] MEDS ORDERED: NS (IVPB) 250 ML 250 ML IV SCH (09:42)
[2022-11-11 10:00] LABS: BASOPHILS % (AUTO) 0 % (0-10); EOSINOPHILS # (AUTO) 0.1 10^3/uL (0.0-0.3); EOSINOPHILS % (AUTO) 1 % (0-10); HEMATOCRIT 38 % (40-54); HEMOGLOBIN 12.8 g/dL (13.3-17.7); LYMPHOCYTES # (AUTO) 1.6 10^3/uL (1.0-4.0); LYMPHOCYTES % (AUTO) 33 % (12-44); MEAN CORPUSCULAR HEMOGLOBIN 31 pg (25-34); MEAN CORPUSCULAR HGB CONC 34 g/dL (32-36); MEAN CORPUSCULAR VOLUME 93 fL (80-99); MEAN PLATELET VOLUME 10.5 fL (9.0-12.2); MONOCYTES # (AUTO) 0.4 10^3/uL (0.0-1.0); MONOCYTES % (AUTO) 8 % (0-12); NEUTROPHILS # (AUTO) 2.9 10^3/uL (1.8-7.8); NEUTROPHILS % (AUTO) 58 % (42-75); PLATELET COUNT 189 10^3/uL (130-400)
[2022-11-11 10:19] LABS: ALBUMIN 3.3 GM/DL (3.2-4.5); BILIRUBIN,TOTAL 0.4 MG/DL (0.1-1.0); CALCIUM 8.6 MG/DL (8.5-10.1); CREATININE SERUM 1.18 MG/DL (0.60-1.30); POTASSIUM 4.3 MMOL/L (3.6-5.0); TOTAL PROTEIN 5.4 GM/DL (6.4-8.2)
[2022-11-11 10:34] LABS: CLARITY,URINE CLEAR; COLOR,URINE YELLOW; GLUCOSE, URINE (UA) NEGATIVE (NEGATIVE); PROTEIN,URINE 3+ (NEGATIVE)
[2022-11-11 10:35] LABS: BACTERIA,URINE NEGATIVE /HPF; BILIRUBIN,URINE NEGATIVE (NEGATIVE); HYALINE CASTS, URINE 0-2 /LPF; KETONES,URINE NEGATIVE (NEGATIVE); LEUKOCYTE ESTERASE ,URINE NEGATIVE (NEGATIVE); NITRITE,URINE NEGATIVE (NEGATIVE); RBC,URINE RARE /HPF
[2022-11-11 10:44] VITALS: BP 156/84
[2022-11-11] MEDS: NIVOLUMAB 480 MG in NS (IVPB) 100 ML 100 ML IV SCH (10:47)
== END 2022-11-12 | disposition home or self-care (01) ==
LOC: ONC 07:48
PROVIDERS: ATTEND Internal Medicine Hematology & Oncology
DX: Z51.11 Encounter for antineoplastic chemotherapy (principal); Z45.2 Encounter for adjustment and management of vascular access device; C64.2 Malignant neoplasm of left kidney, except renal pelvis; C79.51 Secondary malignant neoplasm of bone; C78.7 Secondary malignant neoplasm of liver and intrahepatic bile duct; I10 Essential (primary) hypertension; E03.9 Hypothyroidism, unspecified; D64.9 Anemia, unspecified; E66.9 Obesity, unspecified; E78.00 Pure hypercholesterolemia, unspecified; R91.8 Other nonspecific abnormal finding of lung field
CPT/HCPCS: 80053; 81000; 84443; 85025; 93005; 96413; G0463; 36591; 99214

== ENCOUNTER → 2022-12-02 | Outpatient (CLI) | payer MEDICARE, OTHER ==
[~2022-12-02] MED LIST changes: -HEParin (CENTRAL IV FLUSH) 500 UNIT/5 ML SYR IV PRN; +HOLD METFORMIN - RECEIVED CONTRAST 20 ML VIAL IV SCH; +IOHEXOL 350 MG/ML 100 ML (OMNIPAQUE 350) VIAL IV ONE; -NS (IVPB) 250 ML 250 ML IV SCH; +NS 100 ML (IVPB) BAG IV ONE; -NS IV 500 ML 500 ML IV SCH
--- NOTE | 2022-12-02 10:24 | Diagnostic Imaging Report ---
PROCEDURE: CT chest, abdomen, and pelvis with contrast. TECHNIQUE: Multiple contiguous axial images were obtained through the chest, abdomen, and pelvis after the administration of intravenous contrast. Auto Exposure Controls were utilized during the CT exam to meet ALARA standards for radiation dose reduction. INDICATION: Malignant neoplasm left kidney, follow-up. Comparison is made with prior CT from 08/28/2022. CT CHEST: A left chest wall port in the persistent left SVC is again noted. No axillary lymphadenopathy is identified. Small lymph nodes in mediastinum are stable. No definite mediastinal or hilar lymphadenopathy is detected. There is no pericardial fluid identified. There is a small right pleural effusion. The right pleural fluid has increased since prior study from August, now layering dependently to a thickness of 3.4 cm compared with 1.3 cm on prior. There may be minimal left pleural fluid as well. Tiny nodule right upper lobe is stable at 5 mm. No new nodules are detected. A healing right lateral 6th rib fracture is again noted. CT abdomen and pelvis: Hepatic cysts are again noted. No new liver mass is detected. Small stones are noted in the gallbladder. There is no biliary duct dilatation. Pancreas, spleen and adrenal glands are unremarkable. Right kidney is unremarkable. The low density exophytic mass arising laterally from the left kidney measures approximately 4.5 x 4.5 cm compared with 4.7 x 4.4 cm on prior. Numerous calcifications within the lesion are again noted. A nonobstructing calculus left kidney is again noted. No ureteral calculi or hydronephrosis is detected. Bladder is unremarkable. Aorta is calcified but nonaneurysmal. No abdominal or pelvic lymphadenopathy is detected. Bowel loops are nonobstructed. There is no ascites. Prostate is unremarkable. The bony structures appear nonacute. IMPRESSION: 1. Mild increase in size of right pleural effusion since prior CT from August 2022. There may also be trace pleural fluid on the left as well on today's study. 2. No evidence of thoracic, abdominal or pelvic lymphadenopathy or metastatic disease. The left renal lesion remains stable in size. 3. Hepatic cyst. 4. Cholelithiasis. Dictated by: Dictated on workstation # [id number]
== END ==
LOC: RAD 09:06
PROVIDERS: ATTEND Internal Medicine Hematology & Oncology
DX: C64.2 Malignant neoplasm of left kidney, except renal pelvis (principal); J90 Pleural effusion, not elsewhere classified; K80.20 Calculus of gallbladder without cholecystitis without obstruction; K76.89 Other specified diseases of liver
CPT/HCPCS: 71260; 74177

== ENCOUNTER 2022-12-17 08:17 | Outpatient (RCR) | payer MEDICARE, OTHER ==
[~2022-12-17] VITALS: Ht 177.8 cm; Wt 105.4 kg
[~2022-12-17 08:17] MED LIST changes: +HEParin (CENTRAL IV FLUSH) 500 UNIT/5 ML SYR IV PRN; -HOLD METFORMIN - RECEIVED CONTRAST 20 ML VIAL IV SCH; -IOHEXOL 350 MG/ML 100 ML (OMNIPAQUE 350) VIAL IV ONE; +NIVOLUMAB 480 MG in NS (IVPB) 100 ML 100 ML IV SCH; +NS (IVPB) 250 ML 250 ML IV SCH; -NS 100 ML (IVPB) BAG IV ONE; +NS IV 500 ML 500 ML IV SCH
[2022-12-17 10:28] LABS: BASOPHILS % (AUTO) 1 % (0-10); EOSINOPHILS # (AUTO) 0.1 10^3/uL (0.0-0.3); EOSINOPHILS % (AUTO) 1 % (0-10); HEMATOCRIT 40 % (40-54); HEMOGLOBIN 13.5 g/dL (13.3-17.7); LYMPHOCYTES # (AUTO) 1.9 10^3/uL (1.0-4.0); LYMPHOCYTES % (AUTO) 32 % (12-44); MEAN CORPUSCULAR HEMOGLOBIN 31 pg (25-34); MEAN CORPUSCULAR HGB CONC 34 g/dL (32-36); MEAN CORPUSCULAR VOLUME 92 fL (80-99); MEAN PLATELET VOLUME 10.5 fL (9.0-12.2); MONOCYTES # (AUTO) 0.4 10^3/uL (0.0-1.0); MONOCYTES % (AUTO) 7 % (0-12); NEUTROPHILS # (AUTO) 3.5 10^3/uL (1.8-7.8); NEUTROPHILS % (AUTO) 59 % (42-75); PLATELET COUNT 204 10^3/uL (130-400); WHITE BLOOD COUNT 5.9 10^3/uL (4.3-11.0)
[2022-12-17 10:40] VITALS: BP 156/92
[2022-12-17 10:50] LABS: ALBUMIN 3.3 GM/DL (3.2-4.5); BILIRUBIN,TOTAL 0.5 MG/DL (0.1-1.0); CALCIUM 8.6 MG/DL (8.5-10.1); CREATININE SERUM 1.31 MG/DL (0.60-1.30); POTASSIUM 4.1 MMOL/L (3.6-5.0); TOTAL PROTEIN 5.8 GM/DL (6.4-8.2)
[2022-12-17 10:51] LABS: BILIRUBIN,URINE NEGATIVE (NEGATIVE); CLARITY,URINE CLEAR; COLOR,URINE YELLOW; GLUCOSE, URINE (UA) NEGATIVE (NEGATIVE); KETONES,URINE NEGATIVE (NEGATIVE); LEUKOCYTE ESTERASE ,URINE NEGATIVE (NEGATIVE); NITRITE,URINE NEGATIVE (NEGATIVE); PROTEIN,URINE 3+ (NEGATIVE)
[2022-12-17 10:52] LABS: BACTERIA,URINE NEGATIVE /HPF; RBC,URINE 0-2 /HPF; SQUAMOUS EPITHELIAL CELL,UR RARE /HPF; WBC,URINE 0-2 /HPF
[2022-12-17] MEDS: NIVOLUMAB 480 MG in NS (IVPB) 100 ML 100 ML IV SCH ×2 (11:20→12:07)
== END 2023-01-12 | disposition home or self-care (01) ==
LOC: ONC 08:17
PROVIDERS: ATTEND Internal Medicine Hematology & Oncology
DX: Z51.11 Encounter for antineoplastic chemotherapy (principal); Z45.2 Encounter for adjustment and management of vascular access device; C64.2 Malignant neoplasm of left kidney, except renal pelvis; C79.51 Secondary malignant neoplasm of bone; C78.7 Secondary malignant neoplasm of liver and intrahepatic bile duct; I10 Essential (primary) hypertension; E03.9 Hypothyroidism, unspecified; D64.9 Anemia, unspecified; E66.9 Obesity, unspecified; E78.00 Pure hypercholesterolemia, unspecified; R91.8 Other nonspecific abnormal finding of lung field
CPT/HCPCS: 80053; 81000; 84443; 85025; 93005; 96413; G0463; 36591; 99214

== ENCOUNTER → 2023-01-13 | Outpatient (CLI) | payer MEDICARE, OTHER ==
[~2023-01-13] MED LIST changes: -HEParin (CENTRAL IV FLUSH) 500 UNIT/5 ML SYR IV PRN; -NIVOLUMAB 480 MG in NS (IVPB) 100 ML 100 ML IV SCH; -NS (IVPB) 250 ML 250 ML IV SCH; -NS IV 500 ML 500 ML IV SCH
[2023-01-13 09:37] VITALS: BP 137/86
--- NOTE | 2023-01-13 10:50 | Cardiology Stress Test Report ---
Stress Test Report Date of Procedure/Referring: Date of Procedure: Jan 13, 2023 PCP Lauren Chun MD Admitting Physician Admitting Physician: Attending Physician: Matt Garcia MD Baseline Heart Rate: 70 Baseline Blood Pressure: Blood Pressure Systolic: 137 Blood Pressure Diastolic: 86 Baseline EKG: Baseline EKG: NSR Summary/Conclusion: Summary: Patient started exercising with a baseline heart rate of 70 with sinus rhythm and frequent atrial premature contractions, atrial bigeminy, baseline blood pressure was 137/86. He was able to exercise for 3 minutes and 30 seconds on standard [place] protocol 5.2 METS achieving maximum heart rate of 135 which is 90% of maximal expected heart rate with peak exercise level blood pressure was 193/66 EKG at peak stress level continues to have frequent atrial premature contractions, no ischemic changes During recovery heart rate and blood pressure returned to baseline, EKG continue to have frequent APCs Conclusion: Fair exercise tolerance for a total of 3 minutes and 30 seconds on standard [place] protocol 5.2 METS achieving 90% of maximal expected heart rate Frequent atrial premature contractions/atrial bigeminy/trigeminy persisted through fire test and in recovery No ischemic changes noted Hypertensive response to exercise with peak blood pressure 193/66 return to baseline during recovery Copy Copies To 1: LAUREN CHUN MD, BASHAR J MD Jan 13, 2023 10:50
== END ==
LOC: CARD 08:30
PROVIDERS: ATTEND Internal Medicine Cardiovascular Disease
DX: I11.9 Hypertensive heart disease without heart failure (principal); I34.0 Nonrheumatic mitral (valve) insufficiency; I25.10 Atherosclerotic heart disease of native coronary artery without angina pectoris
CPT/HCPCS: 93017; C8929; 93306

== ENCOUNTER → 2023-02-11 | Outpatient (RCR) | payer MEDICARE, OTHER ==
[2023-01-14 10:30] LABS: BASOPHILS % (AUTO) 1 % (0-10); EOSINOPHILS # (AUTO) 0.1 10^3/uL (0.0-0.3); EOSINOPHILS % (AUTO) 1 % (0-10); HEMATOCRIT 37 % (40-54); HEMOGLOBIN 12.7 g/dL (13.3-17.7); LYMPHOCYTES # (AUTO) 1.9 10^3/uL (1.0-4.0); LYMPHOCYTES % (AUTO) 36 % (12-44); MEAN CORPUSCULAR HEMOGLOBIN 31 pg (25-34); MEAN CORPUSCULAR HGB CONC 34 g/dL (32-36); MEAN CORPUSCULAR VOLUME 89 fL (80-99); MEAN PLATELET VOLUME 10.4 fL (9.0-12.2); MONOCYTES # (AUTO) 0.4 10^3/uL (0.0-1.0); MONOCYTES % (AUTO) 7 % (0-12); NEUTROPHILS % (AUTO) 55 % (42-75); PLATELET COUNT 222 10^3/uL (130-400); WHITE BLOOD COUNT 5.4 10^3/uL (4.3-11.0)
[2023-01-14 10:40] LABS: CLARITY,URINE CLEAR; COLOR,URINE YELLOW
[2023-01-14 10:41] LABS: BACTERIA,URINE NEGATIVE /HPF; BILIRUBIN,URINE NEGATIVE (NEGATIVE); GLUCOSE, URINE (UA) NEGATIVE (NEGATIVE); KETONES,URINE NEGATIVE (NEGATIVE); LEUKOCYTE ESTERASE ,URINE NEGATIVE (NEGATIVE); NITRITE,URINE NEGATIVE (NEGATIVE); PROTEIN,URINE 2+ (NEGATIVE); WBC,URINE RARE /HPF
[2023-01-14 10:50] LABS: ALBUMIN 3.6 GM/DL (3.2-4.5); BILIRUBIN,TOTAL 0.5 MG/DL (0.1-1.0); CREATININE SERUM 1.52 MG/DL (0.60-1.30); TOTAL PROTEIN 5.8 GM/DL (6.4-8.2)
[2023-01-14 11:15] VITALS: BP 138/72
[2023-01-14] MEDS: NIVOLUMAB 480 MG in NS (IVPB) 100 ML 100 ML IV SCH (11:36)
[~2023-02-11] VITALS: Ht 177.8 cm; Wt 101.7 kg
[~2023-02-11] MED LIST changes: +HEParin (CENTRAL IV FLUSH) 500 UNIT/5 ML SYR IV PRN; +NS (IVPB) 250 ML 250 ML IV SCH; +NS IV 500 ML 500 ML IV SCH
[2023-02-11 11:33] LABS: BASOPHILS % (AUTO) 0 % (0-10); EOSINOPHILS # (AUTO) 0.1 10^3/uL (0.0-0.3); EOSINOPHILS % (AUTO) 1 % (0-10); HEMATOCRIT 37 % (40-54); HEMOGLOBIN 12.4 g/dL (13.3-17.7); LYMPHOCYTES # (AUTO) 1.8 10^3/uL (1.0-4.0); LYMPHOCYTES % (AUTO) 36 % (12-44); MEAN CORPUSCULAR HEMOGLOBIN 31 pg (25-34); MEAN CORPUSCULAR HGB CONC 33 g/dL (32-36); MEAN CORPUSCULAR VOLUME 92 fL (80-99); MEAN PLATELET VOLUME 10.8 fL (9.0-12.2); MONOCYTES # (AUTO) 0.4 10^3/uL (0.0-1.0); MONOCYTES % (AUTO) 9 % (0-12); NEUTROPHILS # (AUTO) 2.7 10^3/uL (1.8-7.8); NEUTROPHILS % (AUTO) 53 % (42-75); PLATELET COUNT 204 10^3/uL (130-400)
[2023-02-11 11:41] VITALS: BP 135/70
[2023-02-11 11:45] LABS: BILIRUBIN,URINE NEGATIVE (NEGATIVE); CLARITY,URINE CLEAR; COLOR,URINE YELLOW; GLUCOSE, URINE (UA) NEGATIVE (NEGATIVE); KETONES,URINE NEGATIVE (NEGATIVE); LEUKOCYTE ESTERASE ,URINE NEGATIVE (NEGATIVE); NITRITE,URINE NEGATIVE (NEGATIVE); PH,URINE 5.5 (5-9); PROTEIN,URINE 3+ (NEGATIVE)
[2023-02-11 11:55] LABS: AMORPHOUS SEDIMENT,UR RARE AMOR URATES /LPF; BACTERIA,URINE NEGATIVE /HPF; SQUAMOUS EPITHELIAL CELL,UR RARE /HPF
[2023-02-11 11:56] LABS: ALBUMIN 3.5 GM/DL (3.2-4.5); BILIRUBIN,TOTAL 0.5 MG/DL (0.1-1.0); CALCIUM 8.9 MG/DL (8.5-10.1); CREATININE SERUM 1.6 MG/DL (0.60-1.30); POTASSIUM 4.3 MMOL/L (3.6-5.0); TOTAL PROTEIN 6.1 GM/DL (6.4-8.2)
[2023-02-11] MEDS: NIVOLUMAB 480 MG in NS (IVPB) 100 ML 100 ML IV SCH (12:17)
[2023-02-11 20:25] LABS: HEPATITIS C ANTIBODY C Non-Reactive (Non-Reactive)
== END | disposition home or self-care (01) ==
LOC: ONC 01-14 08:30
PROVIDERS: ATTEND Internal Medicine Hematology & Oncology
DX: Z51.11 Encounter for antineoplastic chemotherapy (principal); Z45.2 Encounter for adjustment and management of vascular access device; C64.2 Malignant neoplasm of left kidney, except renal pelvis; C79.51 Secondary malignant neoplasm of bone; C78.7 Secondary malignant neoplasm of liver and intrahepatic bile duct; I10 Essential (primary) hypertension; I65.29 Occlusion and stenosis of unspecified carotid artery; E03.9 Hypothyroidism, unspecified; D64.9 Anemia, unspecified; E66.9 Obesity, unspecified; E78.00 Pure hypercholesterolemia, unspecified; R91.8 Other nonspecific abnormal finding of lung field
CPT/HCPCS: 80053; 81000; 84443; 85025; 96413; G0463; 36591; 80074; 93005; 99214

== ENCOUNTER 2023-02-17 05:40 | Outpatient (CLI) | payer MEDICARE, OTHER ==
[~2023-02-17] VITALS: Ht 177.8 cm; Wt 101.7 kg
[~2023-02-17 05:40] MED LIST changes: -HEParin (CENTRAL IV FLUSH) 500 UNIT/5 ML SYR IV PRN; -NS (IVPB) 250 ML 250 ML IV SCH; -NS IV 500 ML 500 ML IV SCH
[2023-02-19] MEDS ORDERED: LISI2.5T13 PO (11:32)
[2023-02-19] MEDS ORDERED: HYDR25TA4 PO (11:32)
[2023-02-19] MEDS ORDERED: NIVO100V IV (11:32)
== END 2023-02-19 11:58 | disposition home or self-care (01) ==
LOC: PREOP 05:40
PROVIDERS: ATTEND Surgery
DX: Z01.818 Encounter for other preprocedural examination (principal)